=== PATIENT | female | born 1930 | race Caucasian/White ===

== ENCOUNTER 2016-12-04 12:53 | Emergency (ER) | payer MEDICARE, OTHER ==
[2016-12-04] MEDS ORDERED: NS 0.9% 1000 ML* 1,000 ML IV ONE (15:38)
[2016-12-04 16:16] LABS: Hematocrit 40 % (35-47); Hemoglobin 13.4 g/dl (12.0-16.0); Mean Corpuscular HGB Conc 34 g/dl (31-36); Mean Corpuscular Hemoglobin 30 pg (27-31); Mean Corpuscular Volume 89 fL (80-97); Mean Platelet Volume 9 um3 (7.4-10.4); Red Blood Count 4.51 10^6/ul (4.0-5.4); Red Cell Distribution Width 14 % (10.5-15); White Blood Count 7.9 10^3/ul (3.5-10.8)
--- NOTE | 2016-12-04 16:18 | RAD ---
INDICATION: Pacemaker. Aortic valve replacement. COMPARISON: None. The 2008 examination cannot be retrieved. TECHNIQUE: An AP portable view obtained at 1555 hours is submitted. FINDINGS: Bones/Soft Tissues: There are no acute bony findings. There is sternotomy with valvular replacement and presumed CABG. There is a left-sided cardiac pacemaker. Cardiomediastinal: The cardiomediastinal silhouette is normal in size. Lungs: There are no infiltrates. Pleura: There are no pleural effusions. Other: None IMPRESSION: POSTOPERATIVE CHANGE. NO ACTIVE DISEASE.
[2016-12-04 16:26] LABS: Albumin 3.6 g/dL (3.2-5.2); BUN/Creatinine Ratio 9.4 (8-20); C Reactive Protein 49.07 mg/L (< 5.00); Calcium 8.8 mg/dL (8.6-10.3); EGFR African American 113.4 (>60); EGFR Non-African American 88.2 (>60); Globulin 3.6 g/dL (2-4); Magnesium 1.9 mg/dL (1.9-2.7); Potassium 3.6 mmol/L (3.5-5.0); Total Bilirubin 0.6 mg/dL (0.2-1.0); Total Protein 7.2 g/dL (6.4-8.9); Troponin I 0.01 ng/mL (<0.04)
[2016-12-04 16:34] VITALS: BP 124/78
[2016-12-04] MEDS ORDERED: Iohexol 300* (CONTRAST) 10 ML SDV IV ONE (16:35)
--- NOTE | 2016-12-04 17:33 | RAD ---
INDICATION: Diarrhea. Blood per rectum. Diverticulosis. COMPARISON: CT November 24, 2012 TECHNIQUE: Axial source images were obtained from the hemidiaphragms to the symphysis pubis following administration of oral and intravenous contrast. 67 mL Omnipaque 300 was utilized. Coronal and sagittal reconstructed images were acquired. Lung bases: The lung bases are clear. There is sternotomy. There is pacemaker artifact. Liver: The liver is normal in size. There are no masses. There is no ductal dilatation. Gallbladder: There is sludge within the gallbladder. There are no calcified gallstones. There is no evidence of wall thickening or pericholecystic fluid. Spleen: The spleen is normal in size. There are no masses. Pancreas: There is no focal pancreatic mass or ductal dilatation. Adrenal glands: There is no evidence of adrenal mass. Kidneys: The kidneys are normal in size and position. There are prompt nephrograms and there is prompt excretion bilaterally. There is a 2.7 cm lower pole left renal cyst. There is no evidence of nephrolithiasis. Adenopathy: There is no evidence of adenopathy by size criteria. Fluid collections: There are no free or localized fluid collections. Vessels:There are atherosclerotic changes involving the aorta and iliac vessels. There is mild fusiform ectasia of the infrarenal abdominal aorta with a maximum transverse dimension of 1.7 x 2.0 cm. The IVC appears normal. GI tract: There are no acute CT bowel findings. There is no obstruction. The stomach and small bowel appear normal. The lower GI tract is remarkable for sensitive sigmoid diverticula. There is mucosal thickening of the rectum and sigmoid colon. Some these findings are chronic but superimposed mild acute diverticulitis is suspected.. Pelvic organs: The uterus and adnexa appear normal Bladder: There are no bladder masses. Abdominal and pelvic soft tissues: The extraperitoneal abdominal and pelvic soft tissues appear normal.. Osseous structures: There are no acute osseous findings. There is advanced spondylitic change of the lumbar spine with grade 1 anterolisthesis of L5 on S1 Other: None IMPRESSION: 1. Small amount gallbladder sludge. 2. Extensive distal colonic diverticula with CT findings suggestive of mild acute diverticulitis superimposed upon chronic change.
[2016-12-04 18:56] LABS: Urine Bacteria Absent (Absent); Urine Bilirubin Negative (Negative); Urine Glucose Negative (Negative); Urine Nitrite Negative (Negative)
[2016-12-04] MEDS ORDERED: ALPRAZolam TAB* 0.25 MG PO ONE (19:52)
--- NOTE | 2016-12-04 20:45 | ED ---
Delgado Hedrick SooYoung, scribed for Nichol Rodriguez MD on 12/04/16 at 1524 . GI/ HPI - HPI Summary HPI Summary: An 86 y/o F presents to ED with ongoing, multiple episodes of diarrhea onset approx 11 days ago. (note triage note states 1 month, however pt presents her notes which show this history.) Pt started Amoxicillin on 11/20 for a sinus infection, but after three days developed ongoing diarrhea. Associated sx: mild blood spotting in stool; abd pain onset approx 0300 which has alleviated and now feels "sore." Pt given metronidazole, started on 11/30/16 and stopped on because it was not alleviating the diarrhea. Spoke with Dr Knox, PCP, and Dr. Goldman, GI, offices, today and both recommended that she go to ED for evaluation. PMHx: diverticulitis, hemorrhoids. Last colonoscopy was 5 years ago. Pt last ate yesterday at 1500. - History of Current Complaint Chief Complaint: EDAbdPain Time Seen by Provider: 12/04/16 14:45 Stated Complaint: DIARREAH, ABD PAIN, SPOTTING Hx Obtained From: Patient, Family/Ball Assembler - niece Onset/Duration: Started Weeks Ago - approx 11 days ago, Atraumatic, Still Present Timing: Constant Severity: Moderate Current Severity: Moderate Location of Pain: LLQ, Suprapubic Pain Characteristics: Cramping, Other: - "sore" Associated Signs and Symptoms: Positive: Bright Red Blood w/Stool, Diarrhea, Abdominal Pain - described as abd "soreness" Additional Signs & Symptoms: Positive: Recent Antibiotics Aggravating Factor(s): Nothing Alleviating Factor(s): Nothing - Symptom Characteristics Diarrhea Number of Times per Day: 10 - diarrhea with food Diarrhea Characteristics: Other - mucous, beige - Allergy/Home Medications Allergies/Adverse Reactions: Allergies Allergy/AdvReac Type Severity Reaction Status Date / Time Amoxicillin Allergy Mild n/v Verified 12/04/16 13:02 Azithromycin [From Zithromax] Allergy Mild n/v Verified 12/04/16 13:02 Ciprofloxacin [From Cipro] Allergy Mild n/v Verified 12/04/16 13:02 Codeine Allergy Mild n/v Verified 12/04/16 13:02 Levofloxacin [From Levaquin] Allergy Mild n/v Verified 12/04/16 13:02 Sulfamethoxazole Allergy Mild n/v Verified 12/04/16 13:02 w/Trimethoprim [From Bactrim] Cephalexin Allergy Hives Verified 12/04/16 13:02 Clavulanic Acid Allergy Hives Verified 12/04/16 13:02 [From Augmentin] enviromental Allergy Mild itchy eyes Uncoded 12/04/16 13:02 PMH/Surg Hx/FS Hx/Imm Hx Previously Healthy: No Endocrine/Hematology History: Reports: Hx Thyroid Disease Denies: Hx Diabetes Cardiovascular History: Reports: Hx Hypertension Denies: Hx Myocardial Infarction Respiratory History: Reports: Hx Asthma Denies: Hx Chronic Obstructive Pulmonary Disease (COPD) GI History: Reports: Hx Diverticulosis, Hx Gastroesophageal Reflux Disease, Other GI Disorders - previous hx diverticulitis Musculoskeletal History: Reports: Hx Rheumatoid Arthritis Denies: Hx Osteoporosis, Hx Scoliosis Neurological History: Denies: Hx Headaches, Other Neuro Impairments/Disorders - Surgical History Surgery Procedure, Year, and Place: cardiac surgery done 03/2013, valve replacement Infectious Disease History: Denies: Hx Clostridium Difficile, Hx Hepatitis, Hx Human Immunodeficiency Virus (HIV), Hx of Known/Suspected MRSA, Hx Shingles, Hx Tuberculosis, Hx Known/ Suspected VRE, Hx Known/Suspected VRSA, History Other Infectious Disease, Traveled Outside the [place] in Last 30 Days - Family History Known Family History: Positive: Cardiac Disease, Other - COLON CA; ALZ; DEMENTIA - Social History Occupation: Retired Lives: Alone Alcohol Use: None Hx Substance Use: No Substance Use Type: Reports: None Hx Tobacco Use: No Smoking Status (MU): Never Smoked Tobacco Review of Systems Negative: Fever Positive: Abdominal Pain - pain has reduced, mostly feeling sore now in ED, Diarrhea, Other - pos: mild blood spots in stool Genitourinary: Negative Skin: Negative Neurological: Negative Psychological: Normal All Other Systems Reviewed And Are Negative: Yes Physical Exam - Summary Physical Exam Summary: RECTAL EXAM: External hemorrhoid present, not thrombosed. No masses. Nontender exam. Small amount of beige stool and one spot of bright red blood. Triage Information Reviewed: Yes Vital Signs On Initial Exam: Initial Vitals Temp Pulse Resp BP Pulse Ox 98.4 F 61 16 131/61 98 12/04/16 13:02 12/04/16 13:02 12/04/16 13:02 12/04/16 13:02 12/04/16 13:02 Vital Signs Reviewed: Yes Appearance: Positive: No Pain Distress, Well-Nourished, Ill-Appearing - mild Skin: Positive: Warm, Skin Color Reflects Adequate Perfusion Head/Face: Positive: Normal Head/Face Inspection Eyes: Positive: Conjunctiva Clear ENT: Positive: Normal ENT inspection Neck: Positive: Supple Respiratory/Lung Sounds: Positive: Clear to Auscultation, Breath Sounds Present , Other - no respiratory distress Cardiovascular: Positive: RRR, Other - pulses normal, brisk capillary refill. Negative: Murmur Abdomen Description: Positive: Nontender, Soft Musculoskeletal: Positive: Strength/ROM Intact. Negative: Edema Left, Edema Right Neurological: Positive: Sensory/Motor Intact, Alert, Oriented to Person Place, Time, Facial Symmetry, Speech Normal Psychiatric: Positive: Normal Diagnostics - Vital Signs Vital Signs Temp Pulse Resp BP Pulse Ox 12/04/16 13:02 98.4 F 61 16 131/61 98 - Laboratory Lab Results: Lab Results 12/04/16 12/04/16 12/04/16 Range/Units 15:45 15:45 15:45 WBC 7.9 (3.5-10.8) 10^3/ul RBC 4.51 (4.0-5.4) 10^6/ul Hgb 13.4 (12.0-16.0) g/dl Hct 40 (35-47) % MCV 89 (80-97) fL MCH 30 (27-31) pg MCHC 34 (31-36) g/dl RDW 14 (10.5-15) % Plt Count 211 (150-450) 10^3/ul MPV 9 (7.4-10.4) um3 Neut % (Auto) 71.0 (38-83) % Lymph % (Auto) 18.9 L (25-47) % [place] % (Auto) 8.5 (1-9) % Eos % (Auto) 1.0 (0-6) % Baso % (Auto) 0.6 (0-2) % Absolute Neuts (auto) 5.6 (1.5-7.7) 10^3/ul Absolute Lymphs (auto) 1.5 (1.0-4.8) 10^3/ul Absolute Monos (auto) 0.7 (0-0.8) 10^3/ul Absolute Eos (auto) 0.1 (0-0.6) 10^3/ul Absolute Basos (auto) 0 (0-0.2) 10^3/ul Absolute Nucleated RBC 0 10^3/ul Nucleated RBC % 0 INR (Anticoag Therapy) 1.20 H (0.89-1.11) APTT 30.4 (26.0-36.3) seconds Sodium 137 (133-145) mmol/L Potassium 3.6 (3.5-5.0) mmol/L Chloride 101 (101-111) mmol/L Carbon Dioxide 29 (22-32) mmol/L Anion Gap 7 (2-11) mmol/L BUN 6 (6-24) mg/dL Creatinine 0.64 (0.51-0.95) mg/dL Est GFR ( Amer) 113.4 (>60) Est GFR (Non-Af Amer) 88.2 (>60) BUN/Creatinine Ratio 9.4 (8-20) Glucose 98 (70-100) mg/dL Lactic Acid (0.5-2.0) mmol/L Calcium 8.8 (8.6-10.3) mg/dL Magnesium 1.9 (1.9-2.7) mg/dL Total Bilirubin 0.60 (0.2-1.0) mg/dL AST 19 (13-39) U/L ALT 15 (7-52) U/L Alkaline Phosphatase 67 (34-104) U/L Total Creatine Kinase 64 (10-223) U/L Troponin I 0.01 (<0.04) ng/mL C-Reactive Protein 49.07 H (< 5.00) mg/L Total Protein 7.2 (6.4-8.9) g/dL Albumin 3.6 (3.2-5.2) g/dL Globulin 3.6 (2-4) g/dL Albumin/Globulin Ratio 1.0 (1-3) Amylase 24 L (29-103) U/L Lipase 17 (11.0-82.0) U/L Urine Color Urine Appearance Urine pH (5-9) Ur Specific [place] (1.010-1.030) Urine Protein (Negative) Urine Ketones (Negative) Urine Blood (Negative) Urine Nitrate (Negative) Urine Bilirubin (Negative) Urine Urobilinogen (Negative) Ur Leukocyte Esterase (Negative) Urine WBC (Auto) (Absent) Urine RBC (Auto) (Absent) Ur Squamous Epith Cells (Absent) Urine Bacteria (Absent) Urine Glucose (Negative) Blood Type Antibody Screen 12/04/16 12/04/16 12/04/16 Range/Units 15:45 15:45 18:30 WBC (3.5-10.8) 10^3/ul RBC (4.0-5.4) 10^6/ul Hgb (12.0-16.0) g/dl Hct (35-47) % MCV (80-97) fL MCH (27-31) pg MCHC (31-36) g/dl RDW (10.5-15) % Plt Count (150-450) 10^3/ul MPV (7.4-10.4) um3 Neut % (Auto) (38-83) % Lymph % (Auto) (25-47) % [place] % (Auto) (1-9) % Eos % (Auto) (0-6) % Baso % (Auto) (0-2) % Absolute Neuts (auto) (1.5-7.7) 10^3/ul Absolute Lymphs (auto) (1.0-4.8) 10^3/ul Absolute Monos (auto) (0-0.8) 10^3/ul Absolute Eos (auto) (0-0.6) 10^3/ul Absolute Basos (auto) (0-0.2) 10^3/ul Absolute Nucleated RBC 10^3/ul Nucleated RBC % INR (Anticoag Therapy) (0.89-1.11) APTT (26.0-36.3) seconds Sodium (133-145) mmol/L Potassium (3.5-5.0) mmol/L Chloride (101-111) mmol/L Carbon Dioxide (22-32) mmol/L Anion Gap (2-11) mmol/L BUN (6-24) mg/dL Creatinine (0.51-0.95) mg/dL Est GFR ( Amer) (>60) Est GFR (Non-Af Amer) (>60) BUN/Creatinine Ratio (8-20) Glucose (70-100) mg/dL Lactic Acid 0.9 (0.5-2.0) mmol/L Calcium (8.6-10.3) mg/dL Magnesium (1.9-2.7) mg/dL Total Bilirubin (0.2-1.0) mg/dL AST (13-39) U/L ALT (7-52) U/L Alkaline Phosphatase (34-104) U/L Total Creatine Kinase (10-223) U/L Troponin I (<0.04) ng/mL C-Reactive Protein (< 5.00) mg/L Total Protein (6.4-8.9) g/dL Albumin (3.2-5.2) g/dL Globulin (2-4) g/dL Albumin/Globulin Ratio (1-3) Amylase (29-103) U/L Lipase (11.0-82.0) U/L Urine Color Straw Urine Appearance Clear Urine pH 7.0 (5-9) Ur Specific [place] 1.013 (1.010-1.030) Urine Protein Negative (Negative) Urine Ketones Negative (Negative) Urine Blood 1+ H (Negative) Urine Nitrate Negative (Negative) Urine Bilirubin Negative (Negative) Urine Urobilinogen Negative (Negative) Ur Leukocyte Esterase 1+ H (Negative) Urine WBC (Auto) Trace(0-5/hpf) (Absent) Urine RBC (Auto) Trace(0-2/hpf) (Absent) Ur Squamous Epith Cells Present H (Absent) Urine Bacteria Absent (Absent) Urine Glucose Negative (Negative) Blood Type O Positive Antibody Screen Negative Result Diagrams: 12/04/16 15:45 12/04/16 15:45 Lab Statement: Any lab studies that have been ordered have been reviewed, and results considered in the medical decision making process. - Radiology CXR Xray Interpretation: No Acute Changes - IMPRESSION: Postoperative change. No active dz. Radiology Interpretation Completed By: Radiologist - CT ABD/PEL CT Interpretation: Positive (See Comments) CT Interpretation Completed By: Radiologist - IMPRESSION: 1. Small amount gallbladder sludge. 2. Extensive distal colonic diverticula with CT findings suggestive of mild acute diverticulitis superimposed upon chronic change. - EKG 1624 Cardiac Rate: NL - 74 bpm, 100% paced Re-Evaluation - Re-Evaluation 1 Re-Evaluation Time: 18:51 Change: Unchanged Comment: Discussing results with pt and niece. Will continue to wait for stool sample. Pt is without abd pain, wants to go home. Second Eval Re-Evaluation Time: 19:15 - able to produce stool. Change: Improved GIGU Course/Dx - Course Course Of Treatment: Allergied notes. Medications reviewed. Elevated BP but has current hypertension diagnosis. Pt is an 86 y/o F presenting with ongoing, multiple episodes of diarrhea onset approx 11 days ago. Pt started Amoxicillin on 11/20 for a sinus infection, but after three days developed ongoing diarrhea. Associated sx: mild blood spotting in stool; abd pain onset approx 0300 which has alleviated and now feels "sore." Pt given metronidazole, started on 11/30/16 and stopped on 12/03/16 because it was not alleviating the diarrhea. Spoke with Dr Knox, PCP, and Dr. Goldman, GI, offices, today and both recommended that she go to ED for evaluation. PMHx: diverticulitis, hemorrhoids. Last colonoscopy was 5 years ago. Pt last ate yesterday at 1500. Pt given fluids in ED. Given alprazolam 0.25mg po x 1 just prior to DC, her usual evening med. Pt's multiple allergies noted. Lactic acid is 0.9. CRP is 49.07. Trop is 0.01. UA results show 1+ blood, 1+ leukocyte esterase, squamous epithelia present. CXR shows postoperative changes, no active dz. ABP/PEL CT shows "IMPRESSION: 1. Small amount gallbladder sludge. 2. Extensive distal colonic diverticula with CT findings suggestive of mild acute diverticulitis superimposed upon chronic change." EKG is 100% paced at 74 bpm. - Diagnoses Differential Diagnoses - Female: Colitis, Diverticulitis, Diarrhea, Gastroenteritis (Viral), Gastroenteritis (Bacterial), Urinary Tract Infection Provider Diagnoses: C. difficile colitis, Hemorrhoids without complication, Diverticulitis Discharge - Discharge Plan Condition: Stable Disposition: HOME Prescriptions: Hydrocortisone Acetate W/ Pram [Analpram-Hc 2.5-1 %] 1 cre MA BID #1 tube Vancomycin CAP* 125 mg PO QID #40 cap Patient Education Materials: Diverticulitis (ED), Hemorrhoids (ED), Clostridium Difficile Infection (ED), Diverticulitis Diet (ED) Referrals: Diana Knox MD [Primary Care Provider] - As Soon As Possible Chino Casey MD [Medical Doctor] - As Soon As Possible Additional Instructions: You have a urine culture and stool studies pending. We will contact you if you need further treatment based on those results. You may stop the metronidazole at this point. Return to the ER if you have any new or worsening symptoms. The documentation as recorded by the Delgado lea SooYoung accurately reflects the service I personally performed and the decisions made by me, Nichol Rodriguez MD.
--- NOTE | 2016-12-08 09:17 | PN ---
Progress Note - Progress Note Date of Service: 12/04/16 Note: c diff and stool occult blood positive results. already notified at visit. started on vanco. no further change needed at this time.
== END 2016-12-04 20:49 | disposition home or self-care (01) ==
LOC: ED 12:53
DX: A04.7 Enterocolitis due to Clostridium difficile (principal); K64.9 Unspecified hemorrhoids; K57.92 Diverticulitis of intestine, part unspecified, without perforation or abscess without bleeding; R10.9 Unspecified abdominal pain
CPT/HCPCS: 36415; 71010; 74177; 80053; 81003; 81015; 82150; 82272; 82550; 83605; 83630; 83690; 83735; 84484; 85025; 85610; 85730; 86140; 86850; 86900; 86901; 87040; 87045; 87046; 87077; 87086; 87493; 87899; 93005; 99283; A9270-GY; Q9967

== ENCOUNTER 2017-05-27 10:12 | Day surgery (SDC) | payer MEDICARE, OTHER ==
[~2017-05-27 10:12] MED LIST: Buffered Lidocaine 0.9% SYRIN* 5 ML/SYR SYRINGE INTRADERM ONE
[2017-05-27] MEDS ORDERED: Bupivacaine 0.25% SDV* 30 ML ONE ×2 (14:55→15:04)
[2017-05-27] MEDS ORDERED: Midazolam* 1 MG/ML 2 ML VIAL (2 MG) ONE (15:24)
[2017-05-27] MEDS ORDERED: fentaNYL* 50 MCG/ML 2 ML VIAL (100 MCG VIAL) ONE (15:24)
[2017-05-27] MEDS ORDERED: Naloxone* 0.4 MG/ML 1 ML VIAL IV PRN (15:36)
[2017-05-27 15:59] VITALS: BP 159/63
--- NOTE | 2017-05-28 05:16 | OP ---
DATE OF OPERATION: 05/27/17 - [facility] DATE OF : 32 SURGEON: Dillon Willis MD SIGN LETTERER: TRACY Soto ANESTHESIOLOGIST: Dr. Jolly. ANESTHESIA: Local MAC. PRE-OP DIAGNOSIS: Right carpal tunnel syndrome. POST-OP DIAGNOSIS: Right carpal tunnel syndrome. OPERATIVE PROCEDURE: Right open carpal tunnel release. INDICATIONS: Dottie is 87. She has had progressive disease. It is really bothering her at night time. We talked about risks and benefits. She had wanted to proceed. ESTIMATED BLOOD LOSS: 1 mL. COMPLICATIONS: None. FINDINGS: As expected. DESCRIPTION OF PROCEDURE: Dottie was seen in the preoperative holding area. The correct side, site, and procedure were identified. We came back to the operating room where the arm was then prepped and draped in the usual fashion and time-out was performed. I began by exsanguinating the arm with the Esmarch and the tourniquet was inflated to 250 mmHg. A 2 to 3 cm was made in the standard location for an open carpal tunnel release. Dissection was carried down through the subcutaneous tissue and the palmar fascia. The transverse carpal ligament was released just off the radial aspect of the hook of the hamate. When the release was completed distally and then proximally, the fascia and subcutaneous tissue was released and retracted volarly and ulnarly with the Rolf retractor. The tenotomy scissors were then used to release the remainder of the transverse carpal ligament in the distal antebrachial fascia to a level of several centimeters proximal to the wrist flexion crease. The release was completed distally and proximally. There was no compression on the nerves. So, we irrigated out the wound. Skin was closed with 4-0 nylon. Wound was dressed with Xeroform, 4x4s, sterile Webril and an Serjio bandage. She was woken up and taken to the recovery room. I had infiltrated the operative area with 0.25% plain Marcaine prior to beginning the surgery. [id number]/[facility] #: [id number] MTDD
== END 2017-05-27 16:15 | disposition home or self-care (01) ==
LOC: OREAST 10:12
PROVIDERS: ATTEND Orthopaedic Surgery Hand Surgery
DX: G56.01 Carpal tunnel syndrome, right upper limb (principal); Z95.1 Presence of aortocoronary bypass graft; Z95.2 Presence of prosthetic heart valve; Z95.0 Presence of cardiac pacemaker; J45.909 Unspecified asthma, uncomplicated; I10 Essential (primary) hypertension; E03.9 Hypothyroidism, unspecified; M19.90 Unspecified osteoarthritis, unspecified site; K21.9 Gastro-esophageal reflux disease without esophagitis
CPT/HCPCS: J2250; J3010

== ENCOUNTER 2017-06-02 15:15 | Emergency (ER) | payer MEDICARE, OTHER ==
--- OUTSIDE RECORDS SUMMARY | 2017-06-02 15:36 | XMS REPORT ---
:1930 External Reference #:[id number] Author Organization [facility] Address [address] [place] [address] Phone [phone] Care Team Providers Name Role Phone Maria Ines Lopez M.D. 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 Primary Care Physician Unavailable Payers Type Date Identification Numbers Payment Provider Subscriber Medicare Primary Policy Number: [id number] Medicare [place] PayID: [id number] [address] [place] [address] Medigap Part B Policy Number: [id number] [facility] Number: [id number] [address] PayID: [id number] [place] [address] Problems Date Description Provider Status Onset: 01/12/2017 Coronary atherosclerosis Maria Ines Lopez M.D. Active Onset: 01/12/2017 Clostridium difficile colitis Maria Ines oLpez M.D. Active Onset: 01/12/2017 Osteoporosis Maria Ines Lopez M.D. Active Onset: 01/12/2017 Mitral valve stenosis Maria Ines Lopez M.D. Active Onset: 01/12/2017 Cardiac pacemaker in situ Maria Ines Lopez M.D. Active Onset: 01/12/2017 Anxiety Maria Ines Lopez M.D. Active Onset: 01/12/2017 Hyperlipidemia Maria Ines Lopez M.D. Active Onset: 01/12/2017 Hypothyroidism Maria Ines Lopez M.D. Active Onset: 01/13/2017 Glaucoma Maria Ines Lopez M.D. Active Onset: 01/13/2017 Gastroesophageal reflux disease Maria Ines Lopez M.D. Active Onset: 01/13/2017 Diverticulitis of colon Maria Ines Lopez M.D. Active Onset: 01/13/2017 Asthma Maria Ines Lopez M.D. Active Onset: 01/13/2017 Uncomplicated moderate persistent asthma Maria Ines Lopez M.D. Active Onset: 01/13/2017 Vitamin D deficiency Maria Ines Lopez M.D. Active Onset: 01/13/2017 Impaired fasting glycaemia Maria Ines Lopez M.D. Active Family History Date Family Member(s) Problem(s) Comments Father Diabetes Mellitus, II Mother Congestive Heart Failure (CHF) Mother [place] Social History Type Date Description Comments Marital Status Legal Status: Lives With Alone Cigarette Use Never Smoked Cigarettes ETOH Use Denies alcohol use Smoking Patient has never smoked Allergies, Adverse Reactions, Alerts Date Description Reaction Status Severity Comments 01/13/2017 Augmentin active 01/13/2017 Penicillin active 01/13/2017 Levaquin active 01/13/2017 Sulfa active 01/13/2017 Zithromax active 01/13/2017 Latanoprost active 01/13/2017 Cephalosporins active 01/13/2017 Macrolides and Ketolides active 01/13/2017 NKDA inactive Medications Medication Date Status Form Strength Qnty SIG Indications Ordering Provider Betamethasone / Active Cream 0.05% apply Unknown Dipropionate 0000 sparingly two times a day to three times a day to affected area as needed Xyzal Allergy / Active Tablets 5mg 1 by mouth Unknown 24HR 0000 every day Pantoprazole / Active Tablets DR 40mg 1 by mouth Unknown Sodium 0000 every day Metoprolol / Active Tablets 25mg take 1/2 Unknown Tartrate 0000 tablet by mouth twice a day Ipratropium / Active Solution 0.03% 2 sprays Unknown Bloomer 0000 per nostril at bedtime to start, can use up to three times a day as needed Levoxyl / Active Tablets 25mcg 90tab 1 by mouth Maria Ines 0000 s daily; be maya Lopez M.D. take at the same time in the same way every day Aspir-81 00/00/ Active Tablets DR 81mg 1 by mouth Unknown 0000 every day Atorvastatin 00/00/ Active Tablets 40mg 90tab 1 by mouth Maria Ines Calcium 0000 s every day Js Lopez Nasonex / Active Suspension 50mcg/Act 51gm 2 sprays Pily 0000 in each [place], nostril [employer] daily Cetirizine HCL 00/ Active Tablets 10mg 1 by mouth Unknown 0000 every day Alprazolam / Active Tablets 0.25mg 60tab 1 every Pily 0000 s qd-bid , as [employer] needed anxiety Travatan Z / Active Solution 0.004% 1 drop Unknown 0000 both eyes every night at bedtime Timolol Maleate / Active Solution 0.5% instill Unknown 0000 one drop in each eye two times daily Flovent HFA / Active Aerosol 44mcg/Act 2 puff Unknown 0000 twice a day Ventolin HFA / Active Aerosol 108(90Bas 2 puffs Unknown 0000 e) every 4 mcg/Act hours as needed Immunizations CPT Code Status Date Vaccine Lot # [id number] Given 01/28/2017 High-Dose, Influenza Virus Vacccine-fluzone 65 and [id number] older Vital Signs Date Vital Result Comment 05/26/2017 BP Systolic 130 mmHg BP Diastolic 76 mmHg Heart Rate 76 /min Body Temperature 97.9 F Respiratory Rate 16 /min Height 49.5 inches 4'1.50" Weight 108.00 lb BMI (Body Mass Index) 31.0 kg/m2 04/14/2017 BP Systolic 120 mmHg BP Diastolic 70 mmHg Heart Rate 64 /min Body Temperature 98.0 F Respiratory Rate 18 /min Height 49.5 inches 4'1.50" Weight 111.00 lb BMI (Body Mass Index) 31.8 kg/m2 01/19/2017 BP Systolic 118 mmHg BP Diastolic 60 mmHg Heart Rate 72 /min Body Temperature 97.7 F Height 49.5 inches 4'1.50" Weight 106.50 lb BMI (Body Mass Index) 30.6 kg/m2 01/13/2017 BP Systolic 120 mmHg BP Diastolic 70 mmHg Heart Rate 68 /min Body Temperature 98.0 F Respiratory Rate 18 /min Height 49.5 inches 4'1.50" Weight 107.00 lb BMI (Body Mass Index) 30.7 kg/m2 Results Test Date Test Result H/L Range Note Laboratory test finding 01/28/2017 TSH 4.37 mIU/L 0.50-6.00 Free T4 0.87 ng/dL 0.75-1.54 Comprehensive Metabolic Prof 01/28/2017 Sodium 135 mEq/L 134-149 Potassium 4.3 mEq/L 3.6-5.5 Chloride 96 mEq/L 94-112 Carbon Dioxide 26 mEq/L 21-32 Glucose 104 mg/dL 70-105 BUN 13 mg/dL 6-26 Creatinine 0.7 mg/dL 0.6-1.4 BUN/Creat Ratio 18.6 CALC 8.0-36.0 Calcium 9.9 mg/dL 8.6-10.2 Total Protein 7.4 g/dL 6.4-8.3 Albumin 4.2 g/dL 3.8-5.5 Globulin 3.2 g/dL 2.0-4.8 A/G Ratio 1.3 CALC 0.6-2.3 Alk. Phosphatase 67 U/L 30-110 Alt (SGPT) 15 U/L 7-35 Ast (Sgot) 19 U/L 5-34 Total Bilirubin 0.6 mg/dL 0.2-1.3 GFR Non- >60 ml/min/1.73m^ >=60 GFR >60 ml/min/1.73m^ >=60 Lipid Profile 01/28/2017 Cholesterol 147 mg/dL 120-200 Triglycerides 333 mg/dL High 30-200 HDL Cholesterol 35 mg/dL 30-85 LDL (Calculated) 45 CALC 0-129 VLDL Cholesterol 67 mg/dL High 0-50 HDL Risk Factor 4.2 CALC 0.0-4.4 Complete Blood Count 01/28/2017 WBC 6.3 x10^3/UL 3.6-9.6 RBC 4.84 x10^6/UL 3.90-5.70 HGB 14.1 g/dL 12.1-17.2 HCT 42 % 36-50 MCV 86.0 fL 82.2-97.4 MCH 29.0 pg 27.6-33.3 MCHC 33.9 g/dL 33.0-35.5 RDW 14.8 % High 11.6-13.7 PLT 248 x10^3/UL 150-400 MPV 7.9 fL 7.4-10.4 Gran # 3.7 x10^3/UL 1.5-7.2 Lymph# 2.3 x10^3/UL 0.7-4.9 Bates# 0.3 x10^3/UL 0.1-0.9 Gran % 57.2 % 42.2-75.2 Lymph % 37.0 % 20.5-51.1 Bates% 5.8 % 1.7-9.3 Laboratory test finding 01/28/2017 Vitamin D25 27 Low 30-100 Magnesium, Serum 2.3 mEq/L High 1.2-2.1 Vitamin B-12 627 pg/mL 230-1050 LDL, Direct 61 mg/dL 0-130 Laboratory test finding 01/28/2017 Hemoglobin A1c (Fma) 5.7 % 4.1-5.7 Procedures Date CPT Code Description Status 05/03/2012 Mammogram Completed 05/03/2011 Colonoscopy Completed Encounters Type Date Location Provider CPT E/M Dx Office Visit 04/14/2017 9:00a [facility] Office Maria Ines Lopez M.D. 20385 G56.11 Office Visit 01/19/2017 9:10a [facility] Office Maria Ines Lopez M.D. 21691 R42 I25.10 I10 F41.9 Office Visit 01/13/2017 9:40a [facility] Office Maria Ines Lopez M.D. 89558 E03.9 R73.01 E78.5 I25.10 E55.9 M25.571 J45.40 M81.0 L29.2 Plan of Care Future Appointment(s):08/18/2017 10:00 am - Maria Ines Lopez M.D. at [facility] Mvnytn6805/26/2017 - Maria Ines Lopez M.D.I25.10 Athscl heart disease of [place] coronary artery w/o ang pctrsComments:continue present medication,will call if there is any increase in the frequency or severity of mypxsdX29.9 Anxiety disorder, unspecifiedComments:can increase to TID (3 tabs a day) for severe anxiety, try to stick to 2 tabs a day as medication causes sedation, falls and is habit formingAllComments:~B_~U_Medication Management~b_~u_ Patient Understands medications she's taking? Yes No Are there Barriers to Adherence? Yes No Has the patient been asked about herbal supplements and therapies, and OTC meds? Yes No
--- OUTSIDE RECORDS SUMMARY | 2017-06-02 15:37 | XMS REPORT ---
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 Maria Ines Lopez MD Primary Care Physician Unavailable Payers Type Date Identification Numbers Payment Provider Subscriber Medicare Primary Effective: Policy Number: Medicare Dottie Del Valle 1995 [id number] PayID: [id number] [address] [place] [address] Medigap Part B Policy Number: [id number] [employer] Dottie Del Valle Group Number: [id number] [address] PayID: [id number] [place] [address] Problems Date Description Provider Status Onset: 01/24/2013 Heart murmur Sky Queen M.D., DEISY, Active MILADIS Onset: 01/24/2013 Hyperlipidemia Sky Queen M.D., DEISY, Active FSCADAMARIS Onset: 01/30/2013 Aortic valve disorder Jorge Luis Fischer M.D., Active CRESENCIO OLIVAS Onset: 02/21/2013 Chronic ischemic heart disease Sky Queen M.D., DEISY, Active MILADIS Onset: 11/17/2013 H/O: pacemaker in situ Jorge Luis Fischer M.D., Active CRESENCIO OLIVAS Onset: 04/16/2017 Acquired trigger finger Dillon Willis MD Active Onset: 04/16/2017 Bilateral carpal tunnel syndrome Dillon Willis MD Active Onset: 06/19/2016 Heart valve replacement Jorge Luis Fischer M.D., Active CRESENCIO OLIVAS Onset: 06/03/2015 Paroxysmal ventricular Jorge Luis Fischer M.D., Active tachycardia FAC, CRESENCIO Family History Date Family Member(s) Problem(s) Comments General Hypertension father and mother General [place] Brother 1 age 89 General Cancer Social History Type Date Description Comments Marital Status Lives With Alone Occupation Retired Work Status Not Currently 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 She states she does exercise on a regular basis being busy, but does not do formal walking. ETOH Use Denies alcohol use Smoking Patient has never smoked Recreational Drug Use Never Used Drugs Daily Caffeine Consumes on average 2 cups of decaff coffee per day Daily Caffeine consumes chocolate occasionally Daily Caffeine decaf tea 1 cup daily Exercise Type/Frequency Does housework daily Allergies, Adverse Reactions, Alerts Date Description Reaction Status Severity Comments 01/20/2013 Sulfamethoxazole upset stomach active per patient 08/12/2012 Zithromax upset stomach active per patient 08/12/2012 Levaquin upset stomach active per patient 08/12/2012 Codeine upset stomach active per patient 08/12/2012 Amoxicillin upset stomach active per patient 08/12/2012 Augmentin upset stomach active per patient 08/12/2012 Cipro upset stomach active per patient 01/20/2013 Cephalexin active 01/24/2013 Trimethoprim active 02/21/2013 Clavulanic Acid active 11/17/2013 Latanoprost eye swelling , itch active per patient 11/17/2013 Shellfish-derived Products active per patient Medications Medication Date Status Form Strength Qnty SIG Indications Ordering Provider Lasix 12/16/ Active Tablets 20mg 7tabs Take one Georges S. 2017 tablet a Vera, needed DO FACC for swelling of the feet Ventolin HFA 05/13/ Active Aerosol 108(90Base 3mon prn Tito, 2016 ) mcg/Act MD Vasyl Metoprolol 04/13/ Active Tablets 25mg 90tab 1/2 tab Jorge Luis Tartrate 2012 s by mouth Bjorn twice a chandra Fischer M.D., CRESENCIO OLIVAS Desloratadine / Active Tablets 5mg 1 tab po Unknown Odt 0000 Dispers q evening as needed Atorvastatin 00/ Active Tablets 40mg 90tab 1 po qd Unknown Calcium 0000 s Ipratropium / Active Solution 0.03% 30ml instill 1 Unknown [place] 0000 sprays in each nostril twice a day Aspirin Low / Active Tablets 81mg 30tab 1 po qd Unknown Dose 0000 s Levoxyl / Active Tablets 25mcg 90tab take one Unknown 0000 s tab in the am Multivitamins / Active Capsules 30cap 1 capsule Unknown 0000 s daily Colace / Active Capsules 100mg 60cap 1 po bid Unknown 0000 s prn Calcium 600 + / Active Tablets 600-200mg- 60tab 1 po qd Unknown D3 0000 Unit s Am Alprazolam / Active Tablets 0.25mg 20tab one by Unknown 0000 s mouth up to three times daily as needed for anxiety Travatan Z / Active Solution 0.004% 1 gtt Unknown 0000 both eyes every night at bedtime Pantoprazole / Active Tablets DR 40mg 1 tablet Abilio, Sodium 0000 po twice Ahmad M., daily prn Preservision / Active Capsules Areds 2 take one Unknown Areds 2 0000 cap in the moring and one cap in the evening Timolol Maleate / Active Solution 0.5% One drop Unknown 0000 each eye every morning Flovent HFA / Active Aerosol 44mcg/Act inhale 2 Unknown 0000 puffs twice a day Mometasone / Active Suspension 50mcg/Act spray 2 Unknown Furoate 0000 sprays into each nostril daily Metoprolol 02/21/ Hx Tablets ER 25mg 30tab 1/2 po qd Sky Succinate ER 2012 - 24HR s Bret, 04/12/ M.D., 2013 [facility] Sertraline HCL 03/15/ Hx Tablets 25mg 30tab 1 po qd Marita Pate 2011 - s Perla, 04/12/ MMaryD. 2012 Pantoprazole / Hx Tablets DR 20mg 30tab 1 po q am Unknown Sodium 0000 - s as needed 2014 Meloxicam / Hx Tablets 15mg 30tab 1 po qd Unknown 0000 - s prn 2012 Calcium / Hx Tablets 1000 1 po qd Unknown 0000 - 2012 Qvar / Hx Aerosol 80mcg/Act 1unit 2 puff Cifuentes, 0000 - s inhaled Jose Antonio 06/18/ twice MD stephen 2016 daily until gone then will switch to Flovent Ventolin HFA / Hx Aerosol 108(90Base 3mon 1 puff Unknown 0000 - ) mcg/Act bid prn 2014 Fiber Complete / Hx Tablets 60tab prn Unknown 0000 - s 2012 Vitamin C / Hx 500mg 1 tab po Unknown 0000 - qd for 30 2013 Ferrous / Hx Tablets 324(38Fe) 60tab po bid Unknown Gluconate 0000 - mg s for 30 2013 Folic Acid / Hx Tablets 1mg 30tab 1 po qd Unknown 0000 - s for 30 2013 Furosemide / Hx Tablets 20mg 30tab 1 po qam Unknown 0000 - s for 30 2013 Metoprolol Hx Tablets 25mg 60tab / Unknown Tartrate 0000 - s tablet 04/13/ (12.5 mg) 2012 po bid Medications Administered in Office Medication Date Status Form Strength Qnty SIG Indications Ordering Provider Celestone 3 mg Administered Injection Dillon and 3mg 017 MD Lazaro Inj, Administered Injection Jorge Luis Milan Regadenoson, 016 Amado, 0.1 MG Js, FACC, FASNC Technetium TC Administered Injection Jorge Luis Milan 99M 016 Linda Fischer M.D., FACPhoebe, Per Unit Dose FASNC Up To 40 Millicuries Vital Signs Date Vital Result Comment 05/14/2017 Height 59 inches 4'11" Weight 111.00 lb BP Systolic 118 mmHg BP Diastolic 72 mmHg Respiratory Rate 18 /min Body Temperature 97.9 F Pain Level 0 BMI (Body Mass Index) 22.4 kg/m2 04/16/2017 Height 59 inches 4'11" Weight 111.00 lb Heart Rate 62 /min BP Systolic Sitting 110 mmHg BP Diastolic Sitting 77 mmHg Pain Level 2 BMI (Body Mass Index) 22.4 kg/m2 06/19/2016 Height 59 inches 4'11" Weight 107.12 lb Heart Rate 88 /min BP Systolic Sitting 122 mmHg right, regular BP Diastolic Sitting 78 mmHg right, regular BP Systolic Standing 122 mmHg right, regular BP Diastolic Standing 72 mmHg right, regular Respiratory Rate 18 /min O2 % BldC Oximetry 97 % BMI (Body Mass Index) 21.6 kg/m2 06/03/2015 Height 59 inches 4'11" Weight 117.00 lb with shoes Heart Rate 76 /min BP Systolic Sitting 152 mmHg Ra reg cuff BP Diastolic Sitting 78 mmHg Ra reg cuff BP Systolic Standing 150 mmHg Ra reg cuff BP Diastolic Standing 78 mmHg Ra reg cuff Respiratory Rate 14 /min BMI (Body Mass Index) 23.6 kg/m2 Ejection Fraction 60-65% 05/06/15 11/19/2014 Height 59 inches 4'11" Weight 113.00 lb with shoes Heart Rate 70 /min BP Systolic Sitting 130 mmHg Ra reg cuff BP Diastolic Sitting 68 mmHg Ra reg cuff BP Systolic Standing 122 mmHg Ra reg cuff BP Diastolic Standing 70 mmHg Ra reg cuff Respiratory Rate 16 /min BMI (Body Mass Index) 22.8 kg/m2 11/17/2013 Height 59 inches 4'11" Weight 113.00 lb without shoes Heart Rate 64 /min BP Systolic Sitting 158 mmHg Ra reg cuff BP Diastolic Sitting 78 mmHg Ra reg cuff BP Systolic Standing 162 mmHg Ra reg cuff BP Diastolic Standing 80 mmHg Ra reg cuff Respiratory Rate 12 /min BMI (Body Mass Index) 22.8 kg/m2 06/26/2013 Heart Rate 6068 /min BP Systolic Sitting 124 mmHg L arm, Regular cuff BP Diastolic Sitting 80 mmHg L arm, Regular cuff BP Systolic Standing 128 mmHg BP Diastolic Standing 80 mmHg Respiratory Rate 18 /min 05/11/2013 Height 58 inches 4'10" Weight 112.00 lb Heart Rate 88 /min BP Systolic Sitting 136 mmHg LA reg cuff BP Diastolic Sitting 78 mmHg LA reg cuff BP Systolic Standing 140 mmHg LA BP Diastolic Standing 80 mmHg LA Respiratory Rate 18 /min BMI (Body Mass Index) 23.4 kg/m2 04/13/2013 Height 58 inches 4'10" Weight 108.00 lb without shoes Heart Rate 9490 /min sit and stand HR reg BP Systolic Sitting 124 mmHg R arm reg cuff BP Diastolic Sitting 70 mmHg R arm reg cuff BP Systolic Standing 114 mmHg R arm reg cuff BP Diastolic Standing 70 mmHg R arm reg cuff Respiratory Rate 17 /min BMI (Body Mass Index) 22.6 kg/m2 02/21/2013 Height 59 inches 4'11" Weight 110.00 lb Heart Rate 6672 /min BP Systolic Sitting 144 mmHg right arm, reg cuff BP Diastolic Sitting 76 mmHg right arm, reg cuff BP Systolic Standing 138 mmHg right arm, reg cuff BP Diastolic Standing 72 mmHg right arm, reg cuff Respiratory Rate 20 /min BMI (Body Mass Index) 22.2 kg/m2 01/30/2013 Height 59 inches 4'11" Weight 112.38 lb Heart Rate 72 /min BP Systolic Sitting 138 mmHg Ra reg cuff BP Diastolic Sitting 74 mmHg Ra reg cuff BP Systolic Standing 144 mmHg Ra BP Diastolic Standing 80 mmHg Ra Respiratory Rate 16 /min BMI (Body Mass Index) 22.7 kg/m2 01/24/2013 Height 58 inches 4'10" Weight 113.00 lb without shoes Heart Rate 68 /min BP Systolic 130 mmHg R arm reg cuff BP Diastolic 70 mmHg R arm reg cuff BP Systolic Sitting 128 mmHg L arm reg cuff BP Diastolic Sitting 76 mmHg L arm reg cuff BP Systolic Standing 124 mmHg Larm reg cuff BP Diastolic Standing 72 mmHg Larm reg cuff Respiratory Rate 17 /min BMI (Body Mass Index) 23.6 kg/m2 08/12/2012 Heart Rate 64 /min BP Systolic Sitting 120 mmHg BP Diastolic Sitting 68 mmHg Respiratory Rate 14 /min Results Test Date Test Result H/L Range Note Order 06/19/2016 EKG <pending> CBC Auto Diff 06/06/2013 White Blood Count 5.6 10^3/uL 4.8-10.8 Red Blood Count 4.91 10^6/uL 4.0-5.4 Hemoglobin 13.8 g/dL 12.0-16.0 Hematocrit 42 % 35-47 Mean Corpuscular Volume 86 fL 80-97 Mean Corpuscular Hemoglobin 28 pg 27-31 Mean Corpuscular HGB Conc 33 g/dL 31-36 Red Cell Distribution Width 14 % 10.5-15 Platelet Count 173 10^3/uL 150-450 Mean Platelet Volume 10 um3 7.4-10.4 Abs Neutrophils 3.2 10^3/uL 1.5-7.7 Abs Lymphocytes 1.7 10^3/uL 1.0-4.8 Abs Monocytes 0.5 10^3/uL 0-0.8 Abs Eosinophils 0.1 10^3/uL 0-0.6 Abs Basophils 0 10^3/uL 0-0.2 Abs Nucleated RBC 0.01 10^3/uL Granulocyte % 57.8 % 38-83 Lymphocyte % 31.3 % 25-47 Monocyte % 8.7 % 1-9 Eosinophil % 1.6 % 0-6 Basophil % 0.6 % 0-2 Nucleated Red Blood Cells % 0.2 Laboratory test finding 06/06/2013 Erythrocyte Sed Rate 20 mm/Hr 0-40 Basic Metabolic Panel 06/06/2013 Sodium 136 mmol/L 133-145 Potassium 4.0 mmol/L 3.5-5.0 Chloride 100 mmol/L Low 101-111 Co2 Carbon Dioxide 29.0 mmol/L 22-32 Anion Gap 7.0 mmol/L 2-11 Glucose 81 mg/dL 70-100 Blood Urea Nitrogen 12 mg/dL 6-24 Creatinine 0.70 mg/dL 0.50-1.40 BUN/Creatinine Ratio 17.1 8-20 Calcium 9.1 mg/dL 8.1-9.9 Egfr Non- 80.1 >60 Egfr 103.0 >60 1 Lipid Profile (Trig/Chol/HDL) 06/06/2013 Triglycerides 364 mg/dL High 40- 200 Cholesterol 190 mg/dL Less than 200 HDL Cholesterol 40 mg/dL 40-60 2 Cholesterol/HDL Ratio 4.8 Average High 1-4.44 LDL Cholesterol 77.2 Less Than 100 3 Liver Function Panel 06/06/2013 Total Protein 6.7 g/dL 6.2-8.1 Albumin 4.0 g/dL 3.2-5.2 Globulin 2.7 g/dL 2-4 Albumin/Globulin Ratio 1.5 1-3 Total Bilirubin 0.7 mg/dL 0.4-1.5 Direct Bilirubin 0.1 mg/dL 0.1-0.5 Indirect Bilirubin 0.6 mg/dL 0.3-1.0 Alkaline Phosphatase 60 U/L 30-110 Alt 30 U/L 14-54 Ast 28 U/L 12-42 Laboratory test finding 06/06/2013 Hemoglobin A1c 6.1 % High Less than 6.0 4 Free T4 0.67 ng/mL 0.61-1.24 TSH (Thyroid Stimulating Horm) 1.81 miu/mL 0.34-5.60 CRP High Sensitivity 1.2 mg/L 5 Basic Metabolic Panel 02/20/2013 Sodium 131 mmol/L Low 133-145 Potassium 4.0 mmol/L 3.5-5.0 Chloride 95 mmol/L Low 101-111 Co2 Carbon Dioxide 30.0 mmol/L 22-32 Anion Gap 6.0 mmol/L 2-11 Glucose 138 mg/dL High 70-100 Blood Urea Nitrogen 11 mg/dL 6-24 Creatinine 0.70 mg/dL 0.50-1.40 BUN/Creatinine Ratio 15.7 8-20 Calcium 9.3 mg/dL 8.1-9.9 Egfr Non- 80.3 >60 Egfr 103.3 >60 6 Laboratory test 02/14/2013 Activated Partial 30.0 seconds 22.18-37.18 finding Thrombo Time Inr/Protime 02/14/2013 Inr 0.94 0.87-0.97 Basic Metabolic Panel 02/14/2013 Sodium 124 mmol/L Low 133-145 Potassium 4.1 mmol/L 3.5-5.0 Chloride 90 mmol/L Low 101-111 Co2 Carbon Dioxide 27.0 mmol/L 22-32 Anion Gap 7.0 mmol/L 2-11 Glucose 141 mg/dL High 70-100 Blood Urea Nitrogen 8 mg/dL 6-24 Creatinine 1.00 mg/dL 0.50-1.40 BUN/Creatinine Ratio 8.0 8-20 Calcium 9.1 mg/dL 8.1-9.9 Egfr Non- 53.2 >60 Egfr 68.4 >60 7 CBC No Diff 02/14/2013 White Blood Count 6.2 10^3/uL 4.8-10.8 Red Blood Count 4.58 10^6/uL 4.0-5.4 Hemoglobin 13.7 g/dL 12.0-16.0 Hematocrit 40 % 35-47 Mean Corpuscular Volume 87 fL 80-97 Mean Corpuscular Hemoglobin 30 pg 27-31 Mean Corpuscular HGB Conc 34 g/dL 31-36 Red Cell Distribution Width 14 % 10.5-15 Platelet Count 200 10^3/uL 150-450 Mean Platelet Volume 9 um3 7.4-10.4 1 Because ethnic data is not always readily available, this report includes an eGFR for both -Americans and non- Americans. The National Kidney Disease Education Program (NKDEP) does not endorse the use of the MDRD equation for patients that are not between the ages of 18 and 70, are , have extremes of body size, muscle mass, or nutritional status, or are non- or non-. According to the National Kidney Foundation, irrespective of diagnosis, the stage of the disease is based on the level of kidney function: Stage Description GFR(mL/min/1.73 m(2)) 1 Kidney damage with normal or decreased GFR 90 2 Kidney damage with mild decrease in GFR 60-89 3 Moderate decrease in GFR 30-59 4 Severe decrease in GFR 15-29 5 Kidney failure <15 (or dialysis) 2 HDL Interpretation: Undesirable: High Risk: Less than 40 mg/dL Desirable: Low Risk: Greater than 60 mg/dL 3 LDL Interpretation: Low Risk Optimal Level: LDL Less than 100 mg/dL Near or Above Optimal: LDL 100-129 mg/dL Borderline High Risk: LDL 130-159 mg/dL High Risk: LDL 160-189 mg/dL Very High Risk: LDL Greater than 189 mg/dL 4 Therapeutic target for the treatment of diabetes Mellitus patients is <7% HBA1C, and in selective patients <6.0%.Please refer to [place] Diabetes Association Diabetic care guidelines for further information. 5 Less Than 1.0......Low Risk of Cardiovascular Disease 1.0-3.0............Medium Risk (<2 Fold Increase) Greater Than 3.0...High Risk (Approximately 2-Fold Increase) 6 Because ethnic data is not always readily available, this report includes an eGFR for both -Americans and non- Americans. The National Kidney Disease Education Program (NKDEP) does not endorse the use of the MDRD equation for patients that are not between the ages of 18 and 70, are , have extremes of body size, muscle mass, or nutritional status, or are non- or non-. According to the National Kidney Foundation, irrespective of diagnosis, the stage of the disease is based on the level of kidney function: Stage Description GFR(mL/min/1.73 m(2)) 1 Kidney damage with normal or decreased GFR 90 2 Kidney damage with mild decrease in GFR 60-89 3 Moderate decrease in GFR 30-59 4 Severe decrease in GFR 15-29 5 Kidney failure <15 (or dialysis) 7 Because ethnic data is not always readily available, this report includes an eGFR for both -Americans and non- Americans. The National Kidney Disease Education Program (NKDEP) does not endorse the use of the MDRD equation for patients that are not between the ages of 18 and 70, are , have extremes of body size, muscle mass, or nutritional status, or are non- or non-. According to the National Kidney Foundation, irrespective of diagnosis, the stage of the disease is based on the level of kidney function: Stage Description GFR(mL/min/1.73 m(2)) 1 Kidney damage with normal or decreased GFR 90 2 Kidney damage with mild decrease in GFR 60-89 3 Moderate decrease in GFR 30-59 4 Severe decrease in GFR 15-29 5 Kidney failure <15 (or dialysis) Procedures Date CPT Code Description Status 05/04/2017 92302 ECHO Transthoracic, Real-Time 2D With Doppler And Color Completed Flow 04/20/2017 77745 Pace Maker Eval W/Iterative Adjment Dual Lead Completed 04/20/2017 81129 Pace Maker Eval W/Iterative Adjment Dual Lead Completed 04/16/2017 21656 Inject Tendon Sheath Or Ligament Aponeurosis Eg Plantar Completed Fascia 10/01/2016 32691 Pace Maker Eval W/Iterative Adjment Dual Lead Completed 06/19/2016 17261 EKG Tracing & Interpretation Completed 04/14/2016 23499 Pace Maker Eval W/Iterative Adjment Dual Lead Completed 10/09/2015 21325 Pace Maker Eval W/Iterative Adjment Dual Lead Completed 05/13/2015 26711 Stress Test Completed 05/13/2015 09944 Myocardial Perfusion Imaging Tomographic (Spect) Completed Multiple Studies 05/06/2015 65464 ECHO Transthoracic, Real-Time 2D With Doppler And Color Completed Flow 04/23/2015 26217 Pace Maker Eval W/Iterative Adjment Dual Lead Completed 11/19/2014 21556 EKG Tracing & Interpretation Completed 10/29/2014 26476 ECHO Transthoracic, Real-Time 2D With Doppler And Color Completed Flow 10/22/2014 64870 Pace Maker Eval W/Iterative Adjment Dual Lead Completed 05/02/2014 90544 Pace Maker Eval W/Iterative Adjment Dual Lead Completed 10/24/2013 08574 Pace Maker Eval W/Iterative Adjment Dual Lead Completed 10/23/2013 79429 ECHO Transthoracic, Real-Time 2D With Doppler And Color Completed Flow 05/11/2013 46560 Pace Maker Eval W/Iterative Adjment Dual Lead Completed 04/13/2013 98491 Pace Maker Eval W/Iterative Adjment Dual Lead Completed 04/13/2013 36888 EKG Tracing & Interpretation Completed 02/17/2013 73905 Cath PLMT&NJX L Ventriculog Img S&I Completed 01/25/2013 00381 ECHO Transthoracic, Real-Time 2D With Doppler And Color Completed Flow 01/24/2013 52766 EKG Tracing & Interpretation Completed Encounters Type Date Location Provider CPT E/M Dx Office Visit 06/19/2016 [facility], [address]2654 Z95.2 10:00a Shani Membreno [place], [facility] I25.810 Office Visit 06/03/2015 9:45a [place] [facility] Fischer, 51230 I47.2 Shani Weinstein, [facility] Office Visit 11/19/2014 10:45a [place] [facility] Fischer, 17437 424.1 Shani Weinstein, [facility] Office Visit 11/17/2013 10:30a [facility] Jorge Luis Fischer, 67870 424.1 Shani Weinstein, [facility] V45.01 Office Visit 06/26/2013 10:15a [place] [facility] [place] [address] 424.1 Office Visit 05/11/2013 3:00p [place] [facility] [place] [address] 424.1 Office Visit 04/13/2013 9:00a [place] Jorge Luis Fischer, 08616 424.1 Js, [facility], FASNC 414.9 Office Visit 02/21/2013 2:45p [facility] Sky Queen M.D., 13761 424.1 [facility], FSCAI 414.9 Office Visit 01/30/2013 12:45p [facility] Jorge Luis Fischer, 39421 424.1 Shani Rendon., [facility], CRESENCIO Office Visit 01/24/2013 11:00a [facility] Sky Queen M.D., 15506 785.2 [facility], [facility] 272.4 Office Visit 08/12/2012 10:45a [facility] Ankur Velásquez, 97826 333.1 [facility] Plan of Care Future Appointment(s):05/27/2017 10:00 am - TRACY [facility]05/17/2017 10:15 am - Jorge Luis Fischer M.D., [facility], [place] at [place] [facility]05/18/2017 1:30 pm - Jorge Luis Fischer M.D., [facility] at [place] [facility]05/27/2017 10:00 am - Dillon Willis MD at [facility]06/09/2017 8:45 am - iDllon Willis MD at [facility]
[2017-06-02] MEDS ORDERED: NS 0.9% 1000 ML* 1,000 ML IV ONE (17:08)
[2017-06-02 17:39] LABS: ABS Basophils 0 10^3/ul (0-0.2); ABS Eosinophils 0.1 10^3/ul (0-0.6); ABS Lymphocytes 2.3 10^3/ul (1.0-4.8); ABS Monocytes 0.6 10^3/ul (0-0.8); ABS Nucleated RBC 0 10^3/ul; Eosinophil % 1.3 % (0-6); Hematocrit 40 % (35-47); Hemoglobin 13.5 g/dl (12.0-16.0); Lymphocyte % 28.5 % (25-47); Mean Corpuscular HGB Conc 34 g/dl (31-36); Mean Corpuscular Hemoglobin 29 pg (27-31); Mean Corpuscular Volume 87 fL (80-97); Mean Platelet Volume 8 um3 (7.4-10.4); Nucleated Red Blood Cells % 0; Platelet Count 172 10^3/ul (150-450); Red Blood Count 4.63 10^6/ul (4.0-5.4); Red Cell Distribution Width 15 % (10.5-15)
[2017-06-02 17:58] LABS: EGFR Non-African American 91.3 (>60)
--- NOTE | 2017-06-02 19:56 | ED ---
Renate Hedrick Thomas, scribed for Tone Anderson MD on 06/02/17 at 1954 . Progress - Progress Note Progress Note: The patient is an 87 year old female presenting to the emergency department complaining of diarrhea. The patient is a sign-out from Dr. Machado. I spoke with the daughter because the patient was changing. The daughter reported that the patient was feeling better and had formed stool. The patient will be discharged home with a stool kit that can be brought as an outpatient to a lab. The documentation as recorded by the Renate lea Thomas accurately reflects the service I personally performed and the decisions made by me, Tone Anderson MD.
[2017-06-02 20:10] VITALS: BP 150/58
--- NOTE | 2017-06-04 11:50 | ED ---
Brian Hedrick Angela, scribed for Weston Machado MD on 06/02/17 at 1723 . GI/ HPI - HPI Summary HPI Summary: This pt is a 87 y/o female presenting to [facility] c/o diarrhea x3 days. Pt reports her diarrhea was watery initially and currently it is more solid, described as "pudding like." Pt states she feels dehydrated. She denies any abd pain. Pt denies taking any antibiotics in the past 6 months. Family member reports the last time she was given fluids, but states this caused her left foot to swell up. PMHx: recent carpal tunnel surgery. Family members pt might have had sick contact while she was at [facility]. - History of Current Complaint Chief Complaint: EDGeneral Time Seen by Provider: 06/02/17 17:05 Stated Complaint: DIARRHEA Hx Obtained From: Patient Onset/Duration: Started Days Ago, Still Present Timing: Lasting Days Severity: Severe Current Severity: Moderate Pain Intensity: 0 - out of 10. No current abd pain. Location of Pain: None Associated Signs and Symptoms: Positive: Diarrhea. Negative: Abdominal Pain Aggravating Factor(s): Nothing Alleviating Factor(s): Nothing - Allergy/Home Medications Allergies/Adverse Reactions: Allergies Allergy/AdvReac Type Severity Reaction Status Date / Time MS Amoxicillin [Amoxicillin] Allergy Mild n/v Verified 05/27/17 10:32 MS Azithromycin Allergy Mild n/v Verified 05/27/17 10:32 [From Zithromax] MS Ciprofloxacin [From Cipro] Allergy Mild n/v Verified 05/27/17 10:32 MS Codeine [Codeine] Allergy Mild n/v Verified 05/27/17 10:32 MS Levofloxacin Allergy Mild n/v Verified 05/27/17 10:32 [From Levaquin] MS Sulfamethoxazole Allergy Mild n/v Verified 05/27/17 10:32 w/Trimethoprim [From Bactrim] MS Cephalexin [Cephalexin] Allergy Hives Verified 05/27/17 10:32 MS Clavulanic Acid Allergy Hives Verified 05/27/17 10:32 [From Augmentin] MS Latanoprost [Latanoprost] Allergy Unknown Verified 05/27/17 10:32 Reaction Details MS Macrolides and Ketolides Allergy Unknown Verified 05/27/17 10:32 [Macrolides and Ketolides] Reaction Details MS Penicillins [Penicillins] Allergy Unknown Verified 05/27/17 10:32 Reaction Details MS Shellfish-derived Products Allergy Hives Verified 05/27/17 10:32 [Shellfish-derived Products] enviromental Allergy Mild itchy eyes Uncoded 05/27/17 10:32 PMH/Surg Hx/FS Hx/Imm Hx Endocrine/Hematology History: Reports: Hx Thyroid Disease Denies: Hx Diabetes Cardiovascular History: Reports: Hx Hypertension - ON MEDICATION, Hx Pacemaker/ ICD - FORM SENT TO , Hx Valvular Heart Disease - VALVE REPLACED Denies: Hx Myocardial Infarction Respiratory History: Reports: Hx Asthma - USES INHALER Denies: Hx Chronic Obstructive Pulmonary Disease (COPD) GI History: Reports: Hx Diverticulosis, Hx Gastroesophageal Reflux Disease, Other GI Disorders - DIVERTICULITIS Denies: Hx Ulcer History: Reports: Hx Kidney Infection - 2017 Musculoskeletal History: Reports: Hx Arthritis - GENERALIZED, Hx Rheumatoid Arthritis, Hx Tendonitis - RIGHT ARM Denies: Hx Osteoporosis, Hx Scoliosis Sensory History: Reports: Hx Cataracts - HAS CATARACTS, NO SURGERY, Hx Contacts or Glasses - GLASSES Denies: Hx Hearing Aid Opthamlomology History: Reports: Hx Cataracts - HAS CATARACTS, NO SURGERY, Hx Contacts or Glasses - GLASSES Neurological History: Denies: Hx Headaches, Other Neuro Impairments/Disorders Psychiatric History: Reports: Hx Anxiety - MEDICATION - Surgical History Surgery Procedure, Year, and Place: cardiac surgery done 03/2013, valve replacement. PACEMAKER 2013 [place] Hx Anesthesia Reactions: Yes - SENSITIVE TO DRUGS Infectious Disease History: No Infectious Disease History: Reports: Hx Clostridium Difficile Denies: Hx Hepatitis, Hx Human Immunodeficiency Virus (HIV), Hx of Known/ Suspected MRSA, Hx Shingles, Hx Tuberculosis, Hx Known/Suspected VRE, Hx Known/ Suspected VRSA, History Other Infectious Disease, Traveled Outside the [place] in Last 30 Days - Family History Known Family History: Positive: Cardiac Disease, Other - COLON CA; ALZ; DEMENTIA - Social History Alcohol Use: None Hx Substance Use: No Substance Use Type: Reports: None Hx Tobacco Use: No Smoking Status (MU): Never Smoked Tobacco Review of Systems Constitutional: Other - dehydrated Negative: Fever, Chills Positive: Diarrhea. Negative: Abdominal Pain Musculoskeletal: Negative Skin: Negative Neurological: Negative All Other Systems Reviewed And Are Negative: Yes Physical Exam - Summary Physical Exam Summary: VITAL SIGNS: Reviewed. GENERAL: Patient is a well-developed and nourished female who is lying comfortable in the stretcher. Patient is not in any acute respiratory distress. Pt is a little bit dehydrated. HEAD AND FACE: No signs of trauma. No ecchymosis, hematomas or skull depressions. No sinus tenderness. EYES: PERRLA, EOMI x 2, No injected conjunctiva, no nystagmus. EARS: Hearing grossly intact. Ear canals and tympanic membranes are within normal limits. MOUTH: Oropharynx within normal limits. NECK: Supple, trachea is midline, no adenopathy, no JVD, no carotid bruit, no c- spine tenderness, neck with full ROM. CHEST: Symmetric, no tenderness at palpation LUNGS: Clear to auscultation bilaterally. No wheezing or crackles. CVS: Regular rate and rhythm, S1 and S2 present, no murmurs or gallops appreciated. ABDOMEN: Soft, non-tender. No signs of distention. No rebound no guarding, and no masses palpated. Bowel sounds are normal. EXTREMITIES: FROM in all major joints, no edema, no cyanosis or clubbing. NEURO: Alert and oriented x 3. No acute neurological deficits. Speech is normal and follows commands. SKIN: Dry and warm. Pt has increased turgor of the skin. Triage Information Reviewed: Yes Vital Signs On Initial Exam: Initial Vitals Temp Pulse Resp BP Pulse Ox 96.7 F 77 18 151/75 97 06/02/17 15:23 06/02/17 15:23 06/02/17 15:23 06/02/17 15:23 06/02/17 15:23 Vital Signs Reviewed: Yes Diagnostics - Vital Signs Vital Signs Temp Pulse Resp BP Pulse Ox 06/02/17 15:23 96.7 F 77 18 151/75 97 - Laboratory Lab Results: Lab Results 06/02/17 06/02/17 Range/Units 17:25 17:25 WBC 8.0 (3.5-10.8) 10^3/ul RBC 4.63 (4.0-5.4) 10^6/ul Hgb 13.5 (12.0-16.0) g/dl Hct 40 (35-47) % MCV 87 (80-97) fL MCH 29 (27-31) pg MCHC 34 (31-36) g/dl RDW 15 (10.5-15) % Plt Count 172 (150-450) 10^3/ul MPV 8 (7.4-10.4) um3 Neut % (Auto) 62.2 (38-83) % Lymph % (Auto) 28.5 (25-47) % [place] % (Auto) 7.6 (1-9) % Eos % (Auto) 1.3 (0-6) % Baso % (Auto) 0.4 (0-2) % Absolute Neuts (auto) 5.0 (1.5-7.7) 10^3/ul Absolute Lymphs (auto) 2.3 (1.0-4.8) 10^3/ul Absolute Monos (auto) 0.6 (0-0.8) 10^3/ul Absolute Eos (auto) 0.1 (0-0.6) 10^3/ul Absolute Basos (auto) 0 (0-0.2) 10^3/ul Absolute Nucleated RBC 0 10^3/ul Nucleated RBC % 0 Sodium 134 (133-145) mmol/L Potassium 4.0 (3.5-5.0) mmol/L Chloride 97 L (101-111) mmol/L Carbon Dioxide 30 (22-32) mmol/L Anion Gap 7 (2-11) mmol/L BUN 9 (6-24) mg/dL Creatinine 0.62 (0.51-0.95) mg/dL Est GFR ( Amer) 117.4 (>60) Est GFR (Non-Af Amer) 91.3 (>60) BUN/Creatinine Ratio 14.5 (8-20) Glucose 102 H (70-100) mg/dL Calcium 9.5 (8.6-10.3) mg/dL Total Bilirubin 0.70 (0.2-1.0) mg/dL AST 19 (13-39) U/L ALT 20 (7-52) U/L Alkaline Phosphatase 57 (34-104) U/L C-Reactive Protein 1.02 (< 5.00) mg/L Total Protein 7.7 (6.4-8.9) g/dL Albumin 4.0 (3.2-5.2) g/dL Globulin 3.7 (2-4) g/dL Albumin/Globulin Ratio 1.1 (1-3) Result Diagrams: 06/02/17 17:25 06/02/17 17:25 Lab Statement: Any lab studies that have been ordered have been reviewed, and results considered in the medical decision making process. GIGU Course/Dx - Course Assessment/Plan: This pt is a 87 y/o female presenting to [facility] c/o diarrhea x3 days. Pt reports her diarrhea was watery initially and currently it is more solid, described as "pudding like." She denies any abd pain. Pt denies taking any antibiotics in the past 6 months. Family member reports the last time she was given fluids, but states this caused her left foot to swell up. PMHx: recent carpal tunnel surgery. Family members pt might have had sick contact while she was at [facility]. Test results without any significant abnormalities. In the ED course the pt was given IV fluids. The pt is eating and drinking without any nausea or vomiting. The daughter wants the pt be tested for C. diff, because last summer pt had these symptoms and was positive for C. diff. However, since the pt has not given any stool sample, I will sign out the pt to Dr. Anderson at shift change, pending stool sample. - Diagnoses Differential Diagnoses - Female: Colitis, Gastritis, Gastroenteritis (Viral), Gastroenteritis (Bacterial), Gerd Provider Diagnoses: Nausea & vomiting, Diarrhea Discharge - Discharge Plan Condition: Stable Disposition: HOME Discharge Disposition Comment: signed out to Dr. Anderson, pending dispo, awaiting stool sample Patient Education Materials: Acute Diarrhea (ED) Referrals: Maria Ines Lopez MD [Primary Care Provider] - Additional Instructions: FOLLOW UP WITH YOUR DOCTOR. BRING YOUR DIARRHEA SAMPLE TO THE LAB. RETURN TO THE EMERGENCY DEPARTMENT FOR ANY WORSENING OF YOUR CONDITION OR QUESTIONS OR CONCERNS. The documentation as recorded by the Brian lea Angela accurately reflects the service I personally performed and the decisions made by , Weston Machado MD.
== END 2017-06-02 20:08 | disposition home or self-care (01) ==
LOC: ED 15:15
DX: R19.7 Diarrhea, unspecified (principal)
CPT/HCPCS: 36415; 80053; 85025; 86140; 96360; 99283

== ENCOUNTER 2017-11-27 10:35 | Emergency (ER) | payer MEDICARE, OTHER ==
[2017-11-27 11:09] VITALS: BP 124/67
--- NOTE | 2017-11-27 11:22 | UC ---
Complaint Female HPI - HPI Summary HPI Summary: 87 yo female presents with urinary urgency, frequency, and bladder pressure for the last 2 days. She tells me that she gets a UTI once or twice a year and this feels the same. Her last UTI was ~1 year ago and she was placed on Macrobid with good relief. Denies fever, chills, back pain, or hematuria. - History Of Current Complaint Chief Complaint: UCGU Stated Complaint: BLADDER COMPLAINT Time Seen by Provider: 11/27/17 11:22 Hx Obtained From: Patient Onset/Duration: Sudden Onset Timing: Constant Severity Initially: Mild Severity Currently: Mild Pain Intensity: 2 Pain Scale Used: 0-10 Numeric - Allergies/Home Medications Allergies/Adverse Reactions: Allergies Allergy/AdvReac Type Severity Reaction Status Date / Time lactose Allergy Diarrhea Verified 11/27/17 11:12 amoxicillin AdvReac Nausea And Verified 11/27/17 11:11 Vomiting azithromycin [From Zithromax] AdvReac Nausea And Verified 11/27/17 11:11 Vomiting cephalexin AdvReac Nausea And Verified 11/27/17 11:11 Vomiting ciprofloxacin [From Cipro] AdvReac Nausea And Verified 11/27/17 11:11 Vomiting clavulanic acid AdvReac Nausea And Verified 11/27/17 11:11 Vomiting codeine AdvReac Nausea And Verified 11/27/17 11:11 Vomiting latanoprost AdvReac Nausea And Verified 11/27/17 11:11 Vomiting levofloxacin [From Levaquin] AdvReac Nausea And Verified 11/27/17 11:11 Vomiting shellfish derived AdvReac Nausea And Verified 11/27/17 11:11 Vomiting sulfamethoxazole AdvReac Nausea And Verified 11/27/17 11:11 Vomiting trimethoprim AdvReac Nausea And Verified 11/27/17 11:11 Vomiting enviromental Allergy Mild itchy eyes Uncoded 06/29/17 10:44 PMH/Surg Hx/FS Hx/Imm Hx Cardiovascular History: Hypertension, Pacemaker/ICD Respiratory History: COPD, Asthma GI/ History: Gastroesophageal Reflux Psychological History: Anxiety - Surgical History Surgical History: Yes Surgery Procedure, Year, and Place: cardiac surgery done 03/2013, valve replacement. PACEMAKER 2012 [place] - Family History Known Family History: Positive: Cardiac Disease, Other - COLON CA; ALZ; DEMENTIA - Social History Occupation: Retired Lives: Assisted Living Alcohol Use: None Substance Use Type: None Smoking Status (MU): Never Smoked Tobacco - Immunization History Most Recent Influenza Vaccination: 01/2017 Most Recent Tetanus Shot: up to date Most Recent Pneumonia Vaccination: received Review of Systems Constitutional: Negative Skin: Negative Respiratory: Negative Cardiovascular: Negative Genitourinary: Dysuria, Frequency, Urgency Neurological: Negative Psychological: Negative All Other Systems Reviewed And Are Negative: Yes Physical Exam - Summary Physical Exam Summary: GENERAL: NAD. WDWN. No pain distress. SKIN: No rashes, sores, lesions, or open wounds. NECK: Supple. Nontender. No lymphadenopathy. CHEST: No accessory muscle use. Breathing comfortably and in no distress. CV: Pulses intact. Brisk cap refill. ABDOMEN: Soft. NTTP. No distention or guarding. No CVA tenderness. Bowel sounds present NEURO: Alert. CN II-XII grossly intact. PSYCH: Age appropriate behavior. Triage Information Reviewed: Yes Vital Signs: Initial Vital Signs Temp 97.5 F 11/27/17 11:00 Pulse 62 11/27/17 11:00 Resp 16 11/27/17 11:00 BP 124/67 11/27/17 11:00 Pulse Ox 99 11/27/17 11:00 Laboratory Tests 11/27/17 11:36 POC Urine Color Sonal POC Urine Clarity Cloudy POC Urine pH 7.0 POC Ur Specif Clarks 1.010 POC Urine Protein Trace A POC Ur Glucose (UA) Negative POC Urine Ketones Negative POC Urine Blood 3+ A POC Urine Nitrite Negative POC Urine Bilirubin Negative POC Urine Urobilinogen 0.2 POC U Leukocyte Esteras 3+ A Vital Signs Reviewed: Yes Complaint Female Dx - Course Course Of Treatment: UA with signs of infection. Rx for macrobid and send for culture. - Differential Dx/Diagnosis Provider Diagnoses: UTI Discharge - Sign-Out/Discharge Documenting (check all that apply): Patient Departure - Discharge Plan Condition: Stable Disposition: HOME Prescriptions: Nitrofurantoin Monohyd/M-Cryst [Macrobid 100 mg Capsule] 100 mg PO BID #10 cap Patient Education Materials: Urinary Tract Infection in Women (ED) Referrals: Maria Ines Lopez MD [Primary Care Provider] - Additional Instructions: If you develop a fever, shortness of breath, chest pain, new or worsening symptoms - please call your PCP or go to the ED. - Billing Disposition and Condition Condition: STABLE Disposition: Home
--- NOTE | 2017-11-29 09:03 | UC ---
- Progress Note Progress Note: + klebsiella sensitive to Macrobid no change 11/29/17 [facility] Discharge - Sign-Out/Discharge Documenting (check all that apply): Post-Discharge Follow Up - Discharge Plan Condition: Stable Disposition: HOME Prescriptions: Nitrofurantoin Monohyd/M-Cryst [Macrobid 100 mg Capsule] 100 mg PO BID #10 cap Patient Education Materials: Urinary Tract Infection in Women (ED) Referrals: Maria Ines Lopez MD [Primary Care Provider] - Additional Instructions: If you develop a fever, shortness of breath, chest pain, new or worsening symptoms - please call your PCP or go to the ED. - Billing Disposition and Condition Condition: STABLE Disposition: Home
== END 2017-11-27 11:54 | disposition home or self-care (01) ==
LOC: UCEAST 10:35
DX: N39.0 Urinary tract infection, site not specified (principal); B96.89 Other specified bacterial agents as the cause of diseases classified elsewhere; Z88.0 Allergy status to penicillin; Z88.1 Allergy status to other antibiotic agents; Z88.8 Allergy status to other drugs, medicaments and biological substances; Z88.5 Allergy status to narcotic agent; I10 Essential (primary) hypertension; Z95.811 Presence of heart assist device
CPT/HCPCS: 81003; 87077; 87086; 87186; 99212; G0463

== ENCOUNTER 2018-05-15 14:26 | Emergency (ER) | payer MEDICARE, OTHER ==
--- OUTSIDE RECORDS SUMMARY | 2018-05-15 14:30 | XMS REPORT | Continuity of Care Document ---
:1930 External Reference #:[id number] Author Name JodiHawa guzman Care Team Providers Name Role Phone Maria Ines Lopez MD Care Team Information Steno Pool Supervisor Unavailable Maria Ines Lopez MD Primary Care Physician Unavailable Payers Type Date Identification Numbers Payment Provider Subscriber Policy Number: [id number] Medicare [place] I[place] PayID: [id number] [address] [place] [address] Policy Number: [id number] [facility] Ivon PayID: [id number] [address] [place] [address] Advance Directives Description No Information Available Problems Date Description Provider Status Onset: 06/07/2015 Allergic rhinitis due to pollen Maria Teresa S. Fenstermacher, Active RPA-C Onset: 06/07/2015 Allergic rhinitis Maria Teresa S. Fenstermacher, Active RPA-C Onset: 06/07/2015 Mild intermittent asthma, Maria Teresa S. Fenstermacher, Active uncomplicated RPA-C Onset: 08/24/2016 Mild intermittent asthma Cornelius Flannery RPA-Phoebe Active Onset: 08/24/2016 Posterior rhinorrhea Cornelius Flannery RPA-Phoebe Active Onset: 11/06/2016 Exacerbation of intermittent Maria Teresa S. Fenstermacher, Active asthma RPA-C Onset: 11/20/2016 Acute sinusitis Maria Teresa S. Fenstermacher, Active RPA-C Onset: 11/20/2016 Uncomplicated moderate persistent Maria Teresa S. Fenstermacher, Active asthma RPA-C Family History Description No Information Available Social History Type Date Description Comments Sex Unknown Smoke-Free Home is smoke-free Tobacco Use Start: Unknown Patient has never smoked Tobacco Use Start: Unknown No Second Hand Smoke Exposure Smoking Status Reviewed: 11/20/16 No Second Hand Smoke Exposure Allergies, Adverse Reactions, Alerts Date Description Reaction Status Severity Comments 05/21/2015 Cipro Active 05/21/2015 Levaquin Active 05/21/2015 Bactrim Active 05/21/2015 Zithromax Active 06/07/2015 Cephalosporins Active 06/07/2015 Augmentin Active 06/07/2015 Macrolides and Ketolides Active 06/07/2015 Sulfa Antibiotics Active 06/07/2015 Brimonidine Active 06/07/2015 Latanoprost Active 11/06/2016 Aspirin / Codeine Active 11/06/2016 Trimethoprim Active 11/06/2016 Clavulanic Acid Active 11/06/2016 Clindamycin Active Medications Medication Date Status Form Strength Qnty SIG Indications Ordering Provider Levocetirizine 08/24 Active Tablets 5mg 90tab Take 1 J30.1 Micki Flannery s Tablet By CATHY Shields Mouth Once Daily Ipratropium 01/22 Active Solution 0.03% 90uni 2 Sprays Prudencio ts Each CATHY Shields Nostril 3 Times Daily Ventolin HFA 10/06 Active Aerosol 108(90Bas 3unit inhale 2 e) s puffs by Ed Cifuentes MD mcg/Act inhalatio n route every 4 hours as needed for 99 days Flovent HFA 06/07 Active Aerosol 44mcg/Act 31.8g Inhale 2 J45.20 m Puffs By Ed Cifuentes MD Inhalatio n Route 2 Times Per Day. Rinse Mouth After Use. Preservision Active Capsules Areds 2 Unknown Areds Pantoprazole Active Tablets DR 40mg Unknown Sodium /0000 Alprazolam ER Active Tablets ER 0.5mg Unknown /0000 24HR Metoprolol Active Tablets 25mg Unknown Tartrate /0000 Levoxyl Active Tablets 25mcg Unknown /0000 Calcium 500+D Active Tablets 500-400mg Unknown High Potency /0000 -Unit Aspir-[address] 81mg i tab Unknown /0000 everyday Atorvastatin Active Tablets 40mg Unknown Calcium /0000 Timolol Maleate Active Solution 0.5% Unknown /0000 Travatan Z Active Solution 0.004% Unknown /0000 Mometasone Active Suspension 50mcg/Act 2 Unknown Furoate /0000 intranasa l puffs every day Alprazolam Active Tablets 0.25mg Unknown / Nitrofurantoin Active Capsules 100mg take 1 Unknown Monohydrate/Macr capsule ocrystals by mouth twice a day for 5 days Fluoxetine HCL Active Capsules 10mg take 1 Unknown /0000 capsule by mouth once daily Proctozone-HC Active Cream 2.5% Unknown Tramadol Active Tablets 37.5-325m take 1-2 Unknown Hydrochloride/Ac / g tablets etaminophen by mouth every 4 to 6 hours if needed maximum daily dose of 6 Amoxicillin 11/13 Hx Tablets 875mg 28tab Take one s tablet by Ed Cifuentes MD - mouth 02/04 twice a day x14 days Medrol 11/06 Hx TBPK 4mg 21uni Take as J45.21 ts directed Ed Cifuentes MD - 11/20 Atrovent HFA 01/19 Hx Aerosol 17mcg/Act 38.7g 2 puffs m each Ed Cifuentes MD - nostril 01/22 times a day Nasonex 11/27 Hx Suspension 50mcg/Act 3unit 2 s intranasa Ed Cifuentes MD - l puffs 08/24 Qvar 06/07 Hx Aerosol 80mcg/Act 1unit 2 puff s twice a Ed Cifuentes MD - day 08/24 Ventolin HFA 06/07 Hx Aerosol 108(90Bas 1inha Inhale 2 J45.20 e) ler puffs by Ed Cifuentes MD - mcg/Act inhalatio 08/24 n every 4 hours as needed. Cetirizine HCL 06/07 Hx Tablets 10mg 30tab Take one J30.1 s tablet by Ed Cifuentes MD - mouth 08/24 every at bedtime. Flovent HFA 05/21 Hx Aerosol 44mcg/Act 1inha 2 puff ler twice a Ed Cifuentes MD - day 08/24 Qvar 09/03 Hx Aerosol 80mcg/Act Inhale 2 puff (80 - mcg/actua 05/21 tion) inhalatio n route twice a day as directed Desloratadine Hx Tablets 5mg take one tablet by - mouth 08/24 every as needed Atrovent Hx Solution 0.03% 2 puffs each - nostril 01/19 times a day Cetirizine HCL Hx Chewtabs 10mg chew one tablet by - mouth 02/04 daily at bedtime. Immunizations Description No Information Available Vital Signs Date Vital Result Comment 04/22/2018 1:45pm BP Systolic 122 mmHg BP Diastolic 70 mmHg Height 60 inches 5'0" Weight 110.00 lb BMI (Body Mass Index) 21.5 kg/m2 Heart Rate 89 /min Respiratory Rate 16 /min O2 % BldC Oximetry 99 % 02/25/2018 11:39am BP Systolic 118 mmHg BP Diastolic 62 mmHg Height 60 inches 5'0" Weight 110.50 lb BMI (Body Mass Index) 21.6 kg/m2 Heart Rate 89 /min Respiratory Rate 16 /min Body Temperature 97.8 F O2 % BldC Oximetry 96 % 02/04/2018 3:52pm BP Systolic 154 mmHg BP Diastolic 84 mmHg Height 60 inches 5'0" Weight 112.00 lb BMI (Body Mass Index) 21.9 kg/m2 Heart Rate 92 /min Respiratory Rate 18 /min Body Temperature 96.8 F O2 % BldC Oximetry 97 % 11/20/2016 9:56am BP Systolic 124 mmHg BP Diastolic 80 mmHg Height 60 inches 5'0" Weight 111.00 lb BMI (Body Mass Index) 21.7 kg/m2 Heart Rate 66 /min Respiratory Rate 14 /min Body Temperature 96.1 F O2 % BldC Oximetry 99 % 11/06/2016 1:38pm BP Systolic 120 mmHg BP Diastolic 76 mmHg Height 60 inches 5'0" Weight 111.00 lb BMI (Body Mass Index) 21.7 kg/m2 Heart Rate 84 /min Respiratory Rate 16 /min Body Temperature 97.8 F O2 % BldC Oximetry 97 % 08/24/2016 11:35am BP Systolic 161 mmHg BP Diastolic 79 mmHg Height 60 inches 5'0" Weight 112.00 lb BMI (Body Mass Index) 21.9 kg/m2 Heart Rate 78 /min Respiratory Rate 14 /min Body Temperature 98.0 F O2 % BldC Oximetry 97 % 08/24/2016 11:34am BP Systolic 161 mmHg BP Diastolic 79 mmHg Height 70 inches 5'10" 06/07/2015 10:17am BP Systolic 128 mmHg BP Diastolic 84 mmHg Heart Rate 88 /min Respiratory Rate 12 /min 11/18/2012 4:02pm BP Systolic 120 mmHg BP Diastolic 80 mmHg Heart Rate 90 /min Results Description No Information Available Procedures Date Code Description Status 11/06/2016 16551 Nitric Oxide Gas Determination Completed 11/06/2016 82120 Bronchodilation Responsiveness Spirometry Pre/Post Completed Bronchodil Adm Encounters Type Date Location Provider Dx Diagnosis Office Visit 02/25/2018 Chito Ward J45.40 Moderate persistent 11:30a MD [place] asthma, uncomplicated Office Visit 02/04/2018 Chito Fernández NP J45.40 Moderate persistent 4:00p asthma, uncomplicated J30.1 Allergic rhinitis due to pollen Office Visit 11/20/2016 9:45a Chito Kaba J01.90 Acute sinusitis, Fenstermacher, RPA-C unspecified J45.40 Moderate persistent asthma, uncomplicated J30.1 Allergic rhinitis due to pollen J30.89 Other allergic rhinitis R09.82 Postnasal drip Office Visit 11/06/2016 1:45p Chito Kaba J45.21 Mild intermittent Fenstermacher, RPA-C asthma with (acute) exacerbation J30.1 Allergic rhinitis due to pollen J30.89 Other allergic rhinitis Office Visit 08/24/2016 11:30a Cornelius Barnard, RPA-C J30.1 Allergic rhinitis due to pollen J30.89 Other allergic rhinitis J45.20 Mild intermittent asthma, uncomplicated R09.82 Postnasal drip Office Visit 06/07/2015 10:30a Chito Kaba Fenstermacher, J30.1 Allergic rhinitis RPA-C due to pollen J30.89 Other allergic rhinitis J45.20 Mild intermittent asthma, uncomplicated Plan of Treatment No Information Available
--- OUTSIDE RECORDS SUMMARY | 2018-05-15 14:30 | XMS REPORT | Continuity of Care Document ---
:1930 External Reference #:[id number] Author Name Chico Cifuentes MD Address [address] [place] [address] Care Team Providers Name Role Phone Maria Ines Lopez MD Care Team Information Enterprise Mobility Architect Unavailable Maria Ines Lopez MD Primary Care Physician Unavailable Payers Type Date Identification Numbers Payment Provider Subscriber Policy Number: [id number] Medicare [place] I[place] PayID: [id number] [address] [place] [address] Policy Number: [id number] [facility] Ivon PayID: [id number] [address] [place] [address] Advance Directives Description No Information Available Problems Date Description Provider Status Onset: 06/07/2015 Allergic rhinitis due to pollen Maria Teresa Kendrick, Active RPA-C Onset: 06/07/2015 Allergic rhinitis Maria Teresa Rodriguezacher, Active RPA-C Onset: 06/07/2015 Mild intermittent asthma, Maria Teresa Lopezr, Active uncomplicated RPA-C Onset: 08/24/2016 Mild intermittent asthma Cornelius Flannery RPA-Phoebe Active Onset: 08/24/2016 Posterior rhinorrhea Cornelius Flannery RPA-Phoebe Active Onset: 11/06/2016 Exacerbation of intermittent Maria Teresa Bhagatstermacher, Active asthma RPA-C Onset: 11/20/2016 Acute sinusitis Maria Teresa Lopezr, Active RPA-C Onset: 11/20/2016 Uncomplicated moderate persistent Maria Teresa Bhagatstermacher, Active asthma RPA-C Family History Description No [...] Form Strength Qnty SIG Indications Ordering Provider Singulair 04/22 Active Tablets 10mg 90tab 10mg by J30.1 s mouth Ed Cifuentes MD daily at bedtime Levocetirizine 08/24 Active Tablets 5mg 90tab Take [...] Preservision Active Capsules Areds 2 Unknown Areds 2 /[address] 40mg Unknown Sodium /0000 Alprazolam ER Active Tablets ER 0.5mg Unknown /0000 24HR Metoprolol Active Tablets 25mg Unknown Tartrate /0000 Levoxyl Active Tablets 25mcg Unknown /0000 Calcium 500+D Active Tablets 500-400mg Unknown High Potency /0000 -Unit Aspir-[address] 81mg i tab Unknown /0000 everyday Atorvastatin Active Tablets 40mg Unknown Calcium Timolol Maleate Active Solution 0.5% Unknown Travatan Z Active Solution 0.004% Unknown Mometasone Active Suspension 50mcg/Act 51gm 2 Christopher Furoate samira Cifuentes MD l puffs every day Alprazolam Active Tablets 0.25mg Unknown Nitrofurantoin Active Capsules 100mg take 1 Unknown Monohydrate/Macr capsule ocrystals by mouth twice a day for 5 days Fluoxetine HCL Active Capsules 10mg take 1 Unknown capsule by mouth once daily Proctozone-HC Active Cream 2.5% Unknown Tramadol Active Tablets 37.5-325m take 1-2 Unknown Hydrochloride/Ac g tablets etaminophen by mouth every 4 [...] 11/27 Hx Suspension 50mcg/Act 3unit 2 s samira Cifuentes MD - l puffs 08/24 every Qvar 06/07 Hx Aerosol 80mcg/Act 1unit 2 [...] directed Desloratadine Hx Tablets 5mg take one Unknown tablet by - mouth 08/24 every as needed Atrovent Hx Solution 0.03% 2 puffs each - nostril 01/19 times a day Cetirizine HCL Hx Chewtabs 10mg chew one Unknown / tablet by - mouth 02/04 daily at [...] 80 mmHg Heart Rate 90 /min Results Test Date Facility Test Result H/L Range Note Order 04/22/2018 [facility] Nitric Oxide <pending> PFT Supplies <pending> PFT With Bronchodilator <pending> Procedures Date Code Description Status 04/22/2018 09678 Nitric Oxide Gas Determination Completed 04/22/2018 71378 Bronchodilation Responsiveness Spirometry Pre/Post Completed Bronchodil Adm 11/06/2016 86670 Nitric Oxide Gas Determination Completed 11/06/2016 82016 Bronchodilation Responsiveness Spirometry Pre/Post Completed Bronchodil Adm Encounters Type Date Location Provider Dx Diagnosis Office Visit 04/22/2018 [place]ito Cifuentes, J30.1 Allergic rhinitis 2:00p due to pollen J30.89 Other allergic rhinitis J45.40 Moderate persistent asthma, uncomplicated Office Visit 02/25/2018 11:30a Chito Ward J45.40 Moderate persistent MD [facility] asthma, uncomplicated Office Visit 02/04/2018 4:00p Chito Fernández NP J45.40 Moderate persistent asthma, uncomplicated J30.1 Allergic rhinitis due to pollen Office Visit 11/20/2016 9:45a Chito Resendiz01.90 Acute sinusitis, Fenstermacher, RPA-C unspecified J45.40 Moderate persistent asthma, uncomplicated J30.1 Allergic rhinitis due to pollen J30.89 Other allergic rhinitis R09.82 Postnasal drip Office Visit 11/06/2016 1:45p Taylor Maria Teresa S. J45.21 Mild intermittent Fenstermacher, RPA-C asthma with (acute) exacerbation J30.1 Allergic rhinitis due to pollen J30.89 Other allergic rhinitis Office Visit 08/24/2016 11:30a Cornelius Barnard, RPA-C J30.1 Allergic rhinitis due to pollen J30.89 Other allergic rhinitis J45.20 Mild intermittent asthma, uncomplicated R09.82 Postnasal drip Office Visit 06/07/2015 10:30a Chito Bhagatstermjustyna, J30.1 Allergic rhinitis RPA-C due to pollen J30.89 Other allergic rhinitis J45.20 Mild intermittent asthma, uncomplicated Plan of Treatment 04/22/2018 - Chico Cifuentes MDJ30.1 Allergic rhinitis due to pollenNew Medication:Singulair 10 mg - 10mg by mouth daily at rvsrwvfO18.89 Other allergic oetvgidcH37.40 Moderate persistent asthma, uncomplicated
--- OUTSIDE RECORDS SUMMARY | 2018-05-15 14:31 | XMS REPORT ---
:1930 External Reference #:[id number] Author Organization [facility] Address [address] [place] [address] Phone [phone] Care Team Providers Name Role Phone Maria Ines Lopez M.D. Care Team Information Feeder Catcher Tobacco Unavailable Maria Ines Lopez M.D. Primary Care Physician Unavailable Payers Type Date Identification Numbers Payment Provider Subscriber Medicare Primary Effective: Policy Number: Medicare Alva Del Valel 1995 [id number] PayID: [id number] [address] [place] [address] [employer] [employer] Policy Number: [id number] [employer] [facility] Caron Del Valle Group Number: [id number] [address] PayID: [id number] [place] [address] Problems Date Description Provider Status Onset: 01/12/2017 Coronary atherosclerosis Maria Ines Lopez M.D. Active Onset: 01/12/2017 Clostridium difficile colitis Maria Ines Lopez M.D. Active Onset: 01/12/2017 Osteoporosis Maria Ines [...] II Mother Congestive Heart Failure (CHF) Mother [place] Siblings 12 Social History Type Date Description Comments Marital Status Legal Status: Lives With Alone Diet Healthy, Well Balanced Occupation Retired Cigarette Use Never Smoked Cigarettes ETOH Use Denies alcohol use Smoking Patient has never smoked Exercise Type/Frequency Walks daily Allergies, Adverse Reactions, Alerts Date Description Reaction Status Severity Comments 01/13/2017 Augmentin active 01/13/2017 Penicillin active 01/13/2017 Levaquin active 01/13/2017 Sulfa active 01/13/2017 Zithromax active 01/13/2017 Latanoprost active 01/13/2017 Cephalosporins active 01/13/2017 Macrolides and Ketolides active 08/18/2017 Codeine active gi upset 08/18/2017 Shellfish-derived Products active itchy 09/30/2017 Cipro active 01/25/2018 Trimethoprim active 01/25/2018 Clavulanic Acid active 01/13/2017 NKDA inactive Medications Medication Date Status Form Strength Qnty SIG Indications Ordering Provider Ranitidine HCL 11/02/ Active Tablets 150mg 90tab Take 1 Marjan CMary 2018 s Tablet By Ronald, Mouth MEDIA ASSISTANT Every Day Betamethasone / Active Cream 0.05% apply Unknown Dipropionate 0000 sparingly two times a day to three times a day to affected area as needed Xyzal Allergy / Active Tablets 5mg 1 by mouth Unknown 24HR 0000 every day Metoprolol / Active Tablets 25mg take 1/2 Unknown Tartrate 0000 tablet by mouth twice a day Ipratropium / Active Solution 0.03% 2 sprays Unknown [place] 0000 per nostril at bedtime to start, can use up to three times a day as needed Aspir-81 00/ Active Tablets DR 81mg 1 by mouth Unknown 0000 every day Nasonex / Active Suspension 50mcg/Act 51gm 2 sprays Pily 0000 in each Augustin, nostril SURGICAL PATHOLOGIST daily Travatan Z 00/00/ Active Solution 0.004% 1 drop Unknown 0000 both eyes every night at bedtime Timolol Maleate / Active Solution 0.5% instill Unknown 0000 one drop in each eye two times daily Flovent HFA / Active Aerosol 44mcg/Act 3 puff Unknown 0000 twice a day Ventolin HFA / Active Aerosol 108(90Bas 2 puffs Unknown 0000 e) every 4 mcg/Act hours as needed Multivitamin / Active Tablets 1 by mouth Unknown Adult 0000 every day Calcium 600 / Active Tablets 600mg 1po every Unknown 0000 other day Preservision / Active Capsules 1 po bid Unknown Areds 0000 Vitamin D / Active Tablets 2000Unit once Unknown 0000 daily. Atorvastatin / Active Tablets 40mg 90tab Take 1 Kait Eli Calcium 0000 s Tablet By Schwartz, Mouth MEDIA ASSISTANT Every Day Alprazolam / Active Tablets 0.25mg 90tab 1 tab q8 Maria Ines 0000 s hours as Lulu, needed mdd M.D. 3 mdd 3 Levoxyl / Active Tablets 25mcg 90tab Take 1 Maria Ines 0000 s Tablet By Lulu, Mouth M.D. Daily, Be Sure To Take AT The Same Time Every Day Tessalon Perles 01/25/ Hx Capsules 100mg 30cap take 1 J01.90 Kait Eli 2018 - s tablets Efren, 02/15/ every 8 MEDIA ASSISTANT 2018 hours as needed for cough Physical 09/30/ Hx evaluate M54.2 Alma Rosa Therapy 2018 - and treat Kennedy, 01/16/ neck and SURGICAL PATHOLOGIST 2018 mid back pain Ranitidine 150 07/14/ Hx Tablets 150mg 90tab 1 by mouth Marjan Black 2018 - s every day Ronald, Strength 11/02/ MEDIA ASSISTANT 2018 Fluoxetine HCL 06/10/ Hx Capsules 10mg 30cap 1 by mouth Maria Ines 2018 - s every day John 06/14/ M.D. 2018 Pantoprazole / Hx Tablets DR 40mg 1 by mouth Unknown Sodium 0000 - every day 2017 Cetirizine HCL / Hx Tablets 10mg 1 by mouth Unknown 0000 - every day 2017 Immunizations CPT Code Status Date Vaccine Lot # [id number] Given 02/15/2018 High-Dose, Influenza Virus Vacccine-fluzone 65 and [id number] older 37552 Given 01/28/2017 High-Dose, Influenza Virus Vacccine-fluzone 65 and [id number] older 53604 Given 01/27/2016 High-Dose, Influenza Virus Vacccine-fluzone 65 and older 38532 Given 02/11/2015 Pneumococcal Immunization 10182 Given 01/28/2015 High-Dose, Influenza Virus Vacccine-fluzone 65 and older 54921 Given 05/24/2014 Zostivax 39627 Given 02/09/2014 Influenza Vac, Quadriv[place], [place] [address] Given 02/29/2012 Tdap Tetanus, W Pertussis 92671 Given 02/06/2011 High-Dose, Influenza Virus Vacccine-fluzone 65 and older 97898 Given 07/19/2007 Tetanus And Diptheria Adult Preservative Free >7Yrs 95662 Given 05/03/2004 Pneumococcal Immunization Vital Signs Date Vital Result Comment 04/20/2018 BP Systolic 140 mmHg BP Diastolic 80 mmHg Heart Rate 88 /min Body Temperature 97.8 F Respiratory Rate 16 /min Height 59.5 inches 4'11.50" Weight 109.00 lb BMI (Body Mass Index) 21.6 kg/m2 02/26/2018 BP Systolic 118 mmHg BP Diastolic 78 mmHg Heart Rate 80 /min Body Temperature 97.3 F Respiratory Rate 16 /min Height 59.5 inches 4'11.50" Weight 110.12 lb BMI (Body Mass Index) 21.9 kg/m2 02/15/2018 BP Systolic 120 mmHg BP Diastolic 78 mmHg Heart Rate 84 /min Body Temperature 98.2 F Respiratory Rate 16 /min Height 59.5 inches 4'11.50" Weight 111.00 lb BMI (Body Mass Index) 22.0 kg/m2 01/25/2018 BP Systolic 120 mmHg BP Diastolic 88 mmHg Heart Rate 86 /min Body Temperature 97.9 F Respiratory Rate 16 /min Height 59.5 inches 4'11.50" Weight 112.00 lb BMI (Body Mass Index) 22.2 kg/m2 01/17/2018 BP Systolic 140 mmHg BP Diastolic 80 mmHg Heart Rate 84 /min Body Temperature 97.7 F Height 59.5 inches 4'11.50" Weight 112.00 lb BMI (Body Mass Index) 22.2 kg/m2 12/04/2017 BP Systolic 106 mmHg BP Diastolic 60 mmHg Heart Rate 90 /min Body Temperature 97.5 F Respiratory Rate 16 /min Height 59.5 inches 4'11.50" Weight 109.50 lb BMI (Body Mass Index) 21.7 kg/m2 09/30/2017 BP Systolic 116 mmHg BP Diastolic 72 mmHg Heart Rate 64 /min Body Temperature 97.5 F Respiratory Rate 16 /min Height 59.5 inches 4'11.50" Weight 110.00 lb BMI (Body Mass Index) 21.8 kg/m2 08/18/2017 BP Systolic 118 mmHg BP Diastolic 62 mmHg Heart Rate 80 /min Body Temperature 97.9 F Respiratory Rate 16 /min Height 59.5 inches 4'11.50" Weight 109.00 lb BMI (Body Mass Index) 21.6 kg/m2 05/26/2017 BP Systolic 130 mmHg BP Diastolic [...] Test Date Test Result H/L Range Note Comprehensive Metabolic Prof 02/15/2018 Sodium 137 mEq/L 134-149 Potassium 4.9 mEq/L 3.6-5.5 Chloride 92 mEq/L Low 94-112 1 Carbon Dioxide 24 mEq/L 21-32 Glucose 96 mg/dL 70-105 BUN 12 mg/dL 6-26 Creatinine 0.7 mg/dL 0.6-1.4 BUN/Creat Ratio 17.1 CALC 8.0-36.0 Calcium 10.4 mg/dL High 8.6-10.2 Total Protein 7.9 g/dL 6.4-8.3 Albumin 4.8 g/dL 3.8-5.5 Globulin 3.1 g/dL 2.0-4.8 A/G Ratio 1.5 CALC 0.6-2.3 Alk. Phosphatase 65 U/L 30-110 Alt (SGPT) 28 U/L 7-35 Ast (Sgot) 27 U/L 5-34 Total Bilirubin 0.6 mg/dL 0.2-1.3 2 GFR Non- >60 ml/min/1.73m^ >=60 GFR >60 ml/min/1.73m^ >=60 Lipid Profile 02/15/2018 Cholesterol 179 mg/dL 120-200 Triglycerides 319 mg/dL High 30-200 HDL Cholesterol 42 mg/dL 30-85 LDL (Calculated) 73 CALC 0-129 VLDL Cholesterol 64 mg/dL High 0-50 HDL Risk Factor 4.3 CALC 0.0-4.4 Laboratory test finding 02/15/2018 TSH 2.39 mIU/L 0.50-6.00 Free T4 0.99 ng/dL 0.75-1.54 CBC Electronic Fma 02/15/2018 WBC 7.2 x10^3/UL 4.0-10.0 RBC 4.59 x10^6/UL 3.93-6.00 HGB 13.6 g/dL 12.0-17.0 HCT 40 % 35-50 MCV 87.4 fL 80.0-95.0 MCH 29.6 pg 25.6-32.2 MCHC 33.9 g/dL 32.2-36.0 RDW-CV 13.2 % 11.6-14.4 PLT 181 x10^3/UL 163-400 MPV 10.4 fL 9.4-12.4 Dony# 3.82 x10^3/UL 1.56-6.13 Lymph# 2.47 x10^3/UL 1.18-3.74 [place]# 0.61 x10^3/UL 0.24-0.82 Eos # 0.2 x10^3/UL 0.0-0.5 Baso # 0.04 x10^3/UL 0.01-0.08 Dony% 53.4 % 34.0-70.0 Lymph % 34.5 % 20.0-52.0 [place]% 8.5 % 5.0-12.0 Eos% 2.9 % 0.7-7.0 Baso% 0.6 % 0.1-1.2 Laboratory test finding 02/15/2018 LDL, Direct 92 mg/dL 0-130 Laboratory test finding 02/15/2018 Hemoglobin A1c (Fma) 5.8 % High 4.1- 5.7 Ua - Non Micro (Fma) 12/04/2017 Appearance CLEAR Color YELLOW Glucose, Urine (Fma/CMC/CTX) NEG Bilirubin NEG Ketones NEG SP Grav <=1.005 Blood NEG PH 5.5 Protein NEG Urobil 0.2 Nitrite NEG Leukocytes (a/[facility]/Centrex) NEG Urine Culture And 11/27/2017 Urine Culture SEE RESULT BELOW 3 Sensitivities Poc Urinalysis 11/27/2017 Poc Glucose, Urine Negative Negative Poc Bilirubin, Urine Negative Negative Poc Ketone, Urine Negative Negative Poc Specific [place], Urine 1.010 1.010-1.030 Poc Blood, Urine 3+ Negative Poc pH, Urine 7.0 5-9 Poc Protein, Urine Trace Negative Poc Urobilinogen, Urine 0.2 Negative Poc Nitrite, Urine Negative Negative Poc Leukocytes, Urine 3+ Negative Poc Color, Urine Sonal Poc Clarity, Urine Cloudy 4 Comprehensive Metabolic Prof 10/28/2017 Sodium 130 mEq/L Low 134-149 Potassium 4.0 mEq/L 3.6-5.5 Chloride 91 mEq/L Low 94-112 5 Carbon Dioxide 30 mEq/L 21-32 Glucose 81 mg/dL 70-105 BUN 9 mg/dL 6-26 Creatinine 0.6 mg/dL 0.6-1.4 BUN/Creat Ratio 15.0 CALC 8.0-36.0 Calcium 9.2 mg/dL 8.6-10.2 Total Protein 7.1 g/dL 6.4-8.3 Albumin 4.2 g/dL 3.8-5.5 Globulin 2.9 g/dL 2.0-4.8 A/G Ratio 1.4 CALC 0.6-2.3 Alk. Phosphatase 57 U/L 30-110 Alt (SGPT) 28 U/L 7-35 Ast (Sgot) 23 U/L 5-34 Total Bilirubin 0.5 mg/dL 0.2-1.3 GFR Non- >60 ml/min/1.73m^ >=60 GFR >60 ml/min/1.73m^ >=60 Lipid Profile 10/28/2017 Cholesterol 132 mg/dL 120-200 Triglycerides 162 mg/dL 30-200 HDL Cholesterol 40 mg/dL 30-85 LDL (Calculated) 60 CALC 0-129 VLDL Cholesterol 32 mg/dL 0-50 HDL Risk Factor 3.3 CALC 0.0-4.4 Laboratory test finding 10/28/2017 TSH 3.08 mIU/L 0.50-6.00 Free T4 0.99 ng/dL 0.75-1.54 Laboratory test finding 10/28/2017 Hemoglobin A1c (Fma) 5.8 % High 4.1- 5.7 Ua - Non Micro (Fma) 10/28/2017 Appearance CLEAR Color YELLOW Glucose, Urine (Fma/CMC/CTX) NEGATIVE Bilirubin NEGATIVE Ketones NEGATIVE SP Grav <=1.005 Blood NEGATIVE PH 5.5 Protein NEGATIVE Urobil 0.2 Nitrite NEGATIVE Leukocytes (Fma/CMC/Centrex) NEGATIVE CBC Auto Diff 06/02/2017 White Blood Count 8.0 10^3/uL 3.5-10.8 Red Blood Count 4.63 10^6/uL 4.0-5.4 Hemoglobin 13.5 g/dL 12.0-16.0 Hematocrit 40 % 35-47 Mean Corpuscular Volume 87 fL 80-97 Mean Corpuscular Hemoglobin 29 pg 27-31 Mean Corpuscular HGB Conc 34 g/dL 31-36 Red Cell Distribution Width 15 % 10.5-15 Platelet Count 172 10^3/uL 150-450 Mean Platelet Volume 8 um3 7.4-10.4 Abs Neutrophils 5.0 10^3/uL 1.5-7.7 Abs Lymphocytes 2.3 10^3/uL 1.0-4.8 Abs Monocytes 0.6 10^3/uL 0-0.8 Abs Eosinophils 0.1 10^3/uL 0-0.6 Abs Basophils 0 10^3/uL 0-0.2 Abs Nucleated RBC 0 10^3/uL Granulocyte % 62.2 % 38-83 Lymphocyte % 28.5 % 25-47 Monocyte % 7.6 % 1-9 Eosinophil % 1.3 % 0-6 Basophil % 0.4 % 0-2 Nucleated Red Blood Cells % 0 Comp Metabolic Panel 06/02/2017 Sodium 134 mmol/L 133-145 Potassium 4.0 mmol/L 3.5-5.0 Chloride 97 mmol/L Low 101-111 Co2 Carbon Dioxide 30 mmol/L 22-32 Anion Gap 7 mmol/L 2-11 Glucose 102 mg/dL High 70-100 Blood Urea Nitrogen 9 mg/dL 6-24 Creatinine 0.62 mg/dL 0.51-0.95 BUN/Creatinine Ratio 14.5 8-20 Calcium 9.5 mg/dL 8.6-10.3 Total Protein 7.7 g/dL 6.4-8.9 Albumin 4.0 g/dL 3.2-5.2 Globulin 3.7 g/dL 2-4 Albumin/Globulin Ratio 1.1 1-3 Total Bilirubin 0.70 mg/dL 0.2-1.0 Alkaline Phosphatase 57 U/L 34-104 Alt 20 U/L 7-52 Ast 19 U/L 13-39 Egfr Non- 91.3 >60 Egfr 117.4 >60 6 Laboratory test finding 06/02/2017 C Reactive Protein 1.02 mg/L < 5.00 7 Laboratory test finding 01/28/2017 TSH 4.37 mIU/L [...] 3.7 x10^3/UL 1.5-7.2 Lymph# 2.3 x10^3/UL 0.7-4.9 [place]# 0.3 x10^3/UL 0.1-0.9 Gran % 57.2 % 42.2-75.2 Lymph % 37.0 % 20.5-51.1 [place]% 5.8 % 1.7-9.3 Laboratory test finding 01/28/2017 Vitamin D25 27 Low 30-100 Magnesium, Serum 2.3 mEq/L High 1.2-2.1 Vitamin B-12 627 pg/mL 230-1050 LDL, Direct 61 mg/dL 0-130 Laboratory test finding 01/28/2017 Hemoglobin A1c (Fma) 5.7 % 4.1-5.7 1 RESULTS VERIFIED BY REPEAT ANALYSIS 2 RAN OUT OF TBIL-RESULT DAVION''D AND CORRECTED 3 SEE RESULT BELOW Name: CARON DEL VALLE : [address]: Ankur Bustamante MD Acct: [id number] Unit: [id number] AGE: 87 Location: [facility] Re11/27/17 SEX: F Status: DEP ER SPEC: [id number] JORGE: 11/27/17-1136 [facility] DR: Arden MOLINA REQ: [id number] RECD: 11/27/17 STATUS: REYNALDO STEINER DR: Maria Ines Lopez MD [facility] _ SOURCE: URINE SPDESC: ORDERED: Urine Culture COMMENTS: [id number] Procedure Result Reported Site Urine Culture Final 11/29/17- 0841 ML Organism 1 KLEBSIELLA ORNITHINOLYTICA [place] Count >100,000 (Many) CFU/ML 1. KLEBSIELLA ORNITHINOLYTICA M.I.C. RX --------- ------ Ampicillin R Cefazolin <=4 S Cefepime <=1 S Ceftriaxone <=1 S Ciprofloxacin <=0.25 S Gentamicin <=1 S Levofloxacin <=0.12 S Meropenem <=0.25 S Nitrofurantoin <=16 S Tetracycline <=1 S Pipercillin/Tazobactam <=4 S Trimethoprim/Sulfamethoxazole <=20 S Amoxicillin/Clavulanic Acid <=2 S Aztreonam <=1 S Contact the Microbiology Department for any additional antibiotic reporting. * ML - Main Lab . END OF REPORT DEPARTMENT OF PATHOLOGY, [address] [place] [address] Liam Freeman M.D. Director [facility] # [id number] 4 Cable Assembler: [id number] RESULTS VERIFIED BY REPEAT ANALYSIS 6 Because ethnic data is not always [...] 5 Kidney failure <15 (or dialysis) 7 Acute inflammation: >10.00 Procedures Date CPT Code Description Status 01/17/2018 35568 Remove Impact Cerumen Irrigati Completed Encounters Type Date Location Provider CPT E/M Dx Office Visit 02/26/2018 12:10p [facility] Office Maria Ines Lopez M.D. 86605 S46.292A X50.3xxA Office Visit 02/15/2018 9:40a [facility] Office Maria Ines Lopez M.D. 26311 R73.01 F41.9 I25.10 E03.9 Z23 E78.1 Office Visit 01/25/2018 1:15p [facility] [place] [address] J01.90 K13.70 Office Visit 01/17/2018 11:40a [facility] [place] [address] J01.90 H61.22 Office Visit 12/04/2017 11:15a [facility] [place] [place] [address] N39.0 R19.7 Office Visit 09/30/2017 10:30a [facility] Office STEVE Valdez 11207 M54.2 Office Visit 05/26/2017 8:50a [facility] Office Maria Ines Lopez M.D. 17480 I25.10 F41.9 Office Visit 04/14/2017 9:00a [facility] Maria Ines Lopez M.D. 53202 G56.11 Office Visit 01/19/2017 9:10a [facility] Office Maria Ines Lopez M.D. 64473 R42 I25.10 I10 F41.9 Office Visit 01/13/2017 9:40a [facility] Office Maria Ines Lopez M.D. 07891 E03.9 R73.01 E78.5 I25.10 E55.9 M25.571 J45.40 M81.0 L29.2 Plan of Care Future Appointment(s):09/07/2018 10:20 am - Maria Ines Lopez M.D. at [facility] Aretyi3404/20/2018 - Maria Ines Lopez M.D.R12 HeartburnComments:use ranitidine up to 2x a day and tums as needed call if symptoms aren't better in 2 bnwarM01.82 Postnasal dripComments:use saline rinses, continue nose spraysAllComments:~B_~U_ Medication Management~b_~u_ Patient Understands medications she's taking? Yes No Are there Barriers to Adherence? Yes No Has the patient been asked about herbal supplements and therapies, and OTC meds? Yes No
[2018-05-15 14:42] VITALS: BP 159/84
--- NOTE | 2018-05-15 15:20 | UC ---
Complaint Female HPI - HPI Summary HPI Summary: left flank pain began about 3pm--no fever chills nausea vomiting or diarrhea--- seemed to be voiding frequently this morning - History Of Current Complaint Chief Complaint: UCGU Stated Complaint: URINARY COMPLAINT Time Seen by Provider: 05/15/18 14:32 Hx Obtained From: Patient ?: No Onset/Duration: Sudden Onset, Lasting Hours Timing: Constant Pain Intensity: 2 Pain Scale Used: 0-10 Numeric Character: Colicy Aggravating Factor(s): Nothing Alleviating Factor(s): Nothing Associated Signs And Symptoms: Positive: Back Pain - Allergies/Home Medications Allergies/Adverse Reactions: Allergies Allergy/AdvReac Type Severity Reaction Status Date / Time lactose Allergy Diarrhea Verified 05/15/18 14:43 amoxicillin AdvReac Nausea And Verified 05/15/18 14:43 Vomiting azithromycin [From Zithromax] AdvReac Nausea And Verified 05/15/18 14:43 Vomiting cephalexin AdvReac Nausea And Verified 05/15/18 14:43 Vomiting ciprofloxacin [From Cipro] AdvReac Nausea And Verified 05/15/18 14:43 Vomiting clavulanic acid AdvReac Nausea And Verified 05/15/18 14:43 Vomiting codeine AdvReac Nausea And Verified 05/15/18 14:43 Vomiting latanoprost AdvReac Nausea And Verified 05/15/18 14:43 Vomiting levofloxacin [From Levaquin] AdvReac Nausea And Verified 05/15/18 14:43 Vomiting shellfish derived AdvReac Nausea And Verified 05/15/18 14:43 Vomiting sulfamethoxazole AdvReac Nausea And Verified 11/27/17 11:11 Vomiting trimethoprim AdvReac Nausea And Verified 11/27/17 11:11 Vomiting enviromental Allergy Mild itchy eyes Uncoded 06/29/17 10:44 PMH/Surg Hx/FS Hx/Imm Hx Previously Healthy: No Endocrine History: Hypothyroidism, Dyslipidemia Cardiovascular History: Pacemaker/ICD, Myocardial Infarction GI/ History: Gastroesophageal Reflux - Surgical History Surgical History: Yes Surgery Procedure, Year, and Place: cardiac surgery done 03/2013, valve replacement. PACEMAKER 2013 [place] - Family History Known Family History: Positive: Cardiac Disease, Other - COLON CA; ALZ; DEMENTIA - Social History Occupation: Retired Lives: With Family Alcohol Use: None Substance Use Type: None Smoking Status (MU): Never Smoked Tobacco - Immunization History Most Recent Influenza Vaccination: 01/2017 Most Recent Tetanus Shot: up to date Most Recent Pneumonia Vaccination: received Review of Systems All Other Systems Reviewed And Are Negative: Yes Constitutional: Positive: Negative Skin: Positive: Negative Eyes: Positive: Negative ENT: Positive: Negative Respiratory: Positive: Negative Cardiovascular: Positive: Negative Gastrointestinal: Positive: Negative Genitourinary: Positive: Other - left side/back pain Motor: Positive: Negative Neurovascular: Positive: Negative Musculoskeletal: Positive: Negative Neurological: Positive: Negative Psychological: Positive: Negative Is Patient Immunocompromised?: No Physical Exam Triage Information Reviewed: Yes Appearance: Well-Appearing, No Pain Distress, Well-Nourished Vital Signs: Initial Vital Signs Temp 97.1 F 05/15/18 14:36 Pulse 87 05/15/18 14:36 Resp 18 05/15/18 14:36 BP 159/84 05/15/18 14:36 Pulse Ox 96 05/15/18 14:36 Vital Signs Reviewed: Yes Eye Exam: Normal Eyes: Positive: Conjunctiva Clear ENT Exam: Normal ENT: Positive: Normal ENT inspection, Hearing grossly normal. Negative: Trismus , Muffled voice, Hoarse voice Dental Exam: Normal Neck exam: Normal Neck: Positive: Supple, Nontender Respiratory Exam: Normal Respiratory: Positive: No respiratory distress, No accessory muscle use Cardiovascular Exam: Normal Cardiovascular: Positive: RRR, Pulses Normal, Brisk Capillary Refill Abdominal Exam: Normal Abdomen Description: Positive: Nontender, No Organomegaly, Soft, CVA Tenderness (L). Negative: CVA Tenderness (R) Musculoskeletal Exam: Normal Musculoskeletal: Positive: Strength Intact, ROM Intact, No Edema Neurological Exam: Normal Neurological: Positive: Alert, Muscle Tone Normal Psychological Exam: Normal Skin Exam: Normal Complaint Female Dx - Course Course Of Treatment: increase fluids, macrobid, culture urine, follow with pcp - Differential Dx/Diagnosis Provider Diagnosis: UTI (urinary tract infection), Hypertension Discharge - Sign-Out/Discharge Documenting (check all that apply): Patient Departure All imaging exams completed and their final reports reviewed: No Studies - Discharge Plan Condition: Stable Disposition: HOME Prescriptions: Nitrofurantoin Monohyd/M-Cryst [Macrobid 100 mg Capsule] 100 mg PO BID 5 Days # 10 cap Patient Education Materials: Hypertension (ED), Urinary Tract Infection in Older Adults (ED) Referrals: Maria Ines Lopez MD [Primary Care Provider] - 1 Week - Billing Disposition and Condition Condition: STABLE Disposition: Home - Attestation Statements Provider Attestation: I was available for consult. This patient was seen by the KAILEY. The patient was not presented to , seen by or examined by ma -Tyrone Matthew MD
== END 2018-05-15 15:30 | disposition home or self-care (01) ==
LOC: UCEAST 14:26
DX: I10 Essential (primary) hypertension (principal); N39.0 Urinary tract infection, site not specified; Z88.0 Allergy status to penicillin; Z88.1 Allergy status to other antibiotic agents; Z88.8 Allergy status to other drugs, medicaments and biological substances; Z88.5 Allergy status to narcotic agent; Z95.811 Presence of heart assist device
CPT/HCPCS: 81003; 87086; 99212; G0463

== ENCOUNTER 2018-07-28 14:18 | Emergency (ER) | payer MEDICARE, OTHER ==
--- OUTSIDE RECORDS SUMMARY | 2018-07-28 14:24 | XMS REPORT | Continuity of Care Document ---
:1930 External Reference #:[id number] Author Name Natividad Cote Care Team Providers Name Role Phone Maria Ines Lopez MD Primary Care Physician Unavailable Payers Date Identification Numbers Payment Provider Subscriber Policy Number: [id number] Medicare Caron Khalil PayID: [id number] [address] [facility] [place] [address] Effective: 1996 Policy Number: [id number] Medicare Caron Khalil Expires: 2018 PayID: [id number] [address] [place] [address] Policy Number: [id number] [employer] Caron Khalil Group Number: [id number] [id number] PayID: [id number] [place] [address] Expires: 2017 Policy Number: [id number] [employer] Caron Khalil Group Number: [id number] [facility] [id number] PayID: [id number] [place] [address] Advance Directives Description No Information Available Problems Date Description Provider Status Onset: 01/24/2013 Heart murmur Sky Queen M.D., MIL, Active FSCAI Onset: 01/24/2013 Hyperlipidemia Sky Queen M.D., DEISY, Active [facility]SCAI Onset: 01/30/2013 Aortic valve disorder Jorge Luis Fischer M.D., Active DEISY, FASNC Onset: 02/21/2013 Chronic ischemic heart disease Sky Queen M.D., MIL, Active FSCAI Onset: 11/17/2013 H/O: pacemaker in situ Jorge Luis Fischer M.D., Active CRESENCIO OLIVAS Onset: 06/03/2015 Paroxysmal ventricular Jorge Luis Fischer M.D., Active tachycardia CRESENCIO OLIVAS Onset: 06/19/2016 Heart valve replacement Jorge Luis Fischer M.D., Active CRESENCIO OLIVAS Onset: 04/16/2017 Bilateral carpal tunnel syndrome Dillon Willis MD Active Onset: 04/16/2017 Acquired trigger finger Dillon Willis MD Active Onset: 05/18/2017 Mitral valve disorder Jorge Luis Fischer M.D., Active CRESENCIO OLIVAS Family History Date Family Member(s) Observation Comments General Hypertension father and mother General NM Brother 1 age 89 General Cancer Social History Type Date Description Comments Sex Unknown Marital Status Lives With Alone Occupation Retired Work Status Not Currently 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 She states she does exercise on a regular basis being busy, but does not do formal walking. ETOH Use Denies alcohol use Tobacco Use Start: Unknown Patient has never smoked Recreational Drug Use Never Used Drugs Smoking Status Reviewed: 07/19/18 Patient has never smoked Exercise Type/Frequency Does housework daily Allergies, Adverse Reactions, Alerts Date Description Reaction Status Severity Comments 01/20/2013 Sulfamethoxazole upset stomach Active per patient 08/12/2012 Zithromax upset stomach Active per patient 08/12/2012 Levaquin upset stomach Active per patient 08/12/2012 Codeine upset stomach Active per patient 08/12/2012 Amoxicillin upset stomach Active per patient 08/12/2012 Augmentin upset stomach Active per patient 08/12/2012 Cipro upset stomach Active per patient 01/20/2013 Cephalexin Active 01/24/2013 Trimethoprim Active 02/21/2013 Clavulanic Acid Active 11/17/2013 Latanoprost eye swelling , itch Active per patient 11/17/2013 Shellfish-derived Products Active per patient Medications Medication Date Status Form Strength Qnty SIG Indications Ordering Provider Ventolin HFA 05/13/ Active Aerosol 108(90Base 3mon prn Tito, 2016 ) mcg/Act MD Vasyl Metoprolol 04/13/ Active Tablets 25mg 90tab 1/2 tab Jorge Luis Tartrate 2012 s by mouth Bjorn twice chandra Engel M.D., [facility] Atorvastatin / Active Tablets 40mg 90tab 1 po qd Unknown Calcium 0000 s Ipratropium / Active Solution 0.03% 30ml instill 1 Unknown [place] 0000 sprays in each nostril twice a day Aspirin Low / Active Tablets 81mg 30tab 1 po qd Unknown Dose 0000 s Levoxyl / Active Tablets 25mcg 90tab take one Unknown 0000 s tab in the am Multivitamins / Active Capsules 30cap 1 capsule Unknown 0000 s daily Calcium 600 + / Active Tablets 600-200mg- [...] 0000 po twice Ahmad M., daily prn MD Preservision / Active Capsules Areds 2 take [...] Furoate 0000 sprays into each nostril daily Xyzal Allergy / Active Tablets 5mg 1 by Unknown 24HR 0000 mouth every day Tramadol 05/26/ Hx Tablets 37.5-325mg 30tab 1-2 tab Dillon Hydrochloride/A 2018 - s by mouth Willis, cetaminophen 07/06/ every 4-6 MD 2018 hours as needed Lasix 12/16/ Hx Tablets 20mg 7tabs Take one Georges Kaba 2017 - tablet john Vera, 05/04/ needed DO [facility] 2018 for swelling of the feet Metoprolol 02/21/ Hx Tablets ER 25mg 30tab 1/2 po qd Sky Succinate ER 2012 - 24HR s Bret 04/12/ Js, 2012 [facility], FSCAI Sertraline HCL 03/15/ Hx Tablets 25mg 30tab 1 po qd Marita Pate 2011 - s Soniaman, 04/12/ MSantos 2012 Pantoprazole / Hx Tablets DR 20mg 30tab 1 po q am Unknown Sodium 0000 - s as needed 2014 Desloratadine / Hx Tablets 5mg 1 tab po Unknown Odt 0000 - Dispers q evening as needed 2018 Meloxicam / Hx Tablets 15mg 30tab 1 po qd Unknown 0000 - s prn 2012 Calcium / Hx Tablets 1000 1 po qd Unknown 0000 - 2012 Qvar / Hx Aerosol 80mcg/Act 1unit 2 puff Cifuentes, 0000 - s inhaled Jose Antonio 06/18/ twice MD stephen 2017 daily until gone then will switch to Flovent Ventolin HFA / Hx Aerosol 108(90Base 3mon 1 puff Unknown 0000 - ) mcg/Act bid prn 2014 Fiber Complete / Hx Tablets 60tab prn Unknown 0000 - s 2012 Colace / Hx Capsules 100mg 60cap 1 po bid Unknown 0000 - s prn 2017 Vitamin C / Hx 500mg 1 tab [...] 0000 - s for 30 2013 Metoprolol / Hx Tablets 25mg 60tab 05/04 Unknown Tartrate 0000 - s tablet 04/13/ (12.5 mg) 2012 po bid Prozac / Hx Capsules 10mg 1 by Unknown 0000 - mouth every day 2018 Medications Administered in Office Medication Date Status Form Strength Qnty SIG Indications Ordering Provider Depomedrol Administered Injection Eulalio F 40MG 018 MD Aditi Inj, Administered Injection Jorge Luis Bjorn Regadenoson, 018 Fischer, 0.1 MG M.D., FACC, FASNC Technetium TC Administered Injection Jorge Luis Milan 99M 018 Linda Fischer M.D., FACC, Per Unit Dose FASNC Up To 40 Millicuries Celestone 3 mg Administered Injection Dillon and 3mg 017 MD Lazaro Inj, Administered Injection Jorge Luis Milan Regadenoson, 016 Fischer, 0.1 MG M.D., FACC, FASNC Technetium TC Administered Injection Jorge Luis Milan 99M 016 Linda Fischer M.D., FACC, Per Unit Dose FASNC Up To 40 Millicuries Immunizations Description No Information Available Vital Signs Date Vital Result Comment 07/19/2018 1:03pm Height 59 inches 4'11" Weight 110.25 lb Heart Rate 93 /min BP Systolic Sitting 118 mmHg reg adult cuff right arm BP Diastolic Sitting 80 mmHg reg adult cuff right arm O2 % BldC Oximetry 95 % BMI (Body Mass Index) 22.3 kg/m2 04/12/2018 11:43am Height 59 inches 4'11" Weight 109.00 lb Heart Rate 84 /min Respiratory Rate 16 /min Body Temperature 96.8 F Pain Level 4 BMI (Body Mass Index) 22.0 kg/m2 02/28/2018 3:01pm Height 59 inches 4'11" Weight 105.00 lb Heart Rate 79 /min Respiratory Rate 15 /min Pain Level 6 BMI (Body Mass Index) 21.2 kg/m2 07/20/2017 1:19pm Height 59 inches 4'11" Weight 109.00 lb Heart Rate 81 /min Respiratory Rate 14 /min Pain Level 0 BMI (Body Mass Index) 22.0 kg/m2 07/07/2017 9:22am Height 59 inches 4'11" Weight 109.00 lb ith shoes Heart Rate 64 /min BP Systolic Sitting 122 mmHg Lue reg cuff BP Diastolic Sitting 70 mmHg Lue reg cuff BP Systolic Standing 120 mmHg Lue reg cuff BP Diastolic Standing 70 mmHg Lue reg cuff Respiratory Rate 16 /min BMI (Body Mass Index) 22.0 kg/m2 Ejection Fraction 60-65% ECho 05/2006/09/2017 8:16am Height 59 inches 4'11" Heart Rate 87 /min BP Systolic 110 mmHg BP Diastolic 76 mmHg Respiratory Rate 16 /min Body Temperature 97.7 F Pain Level 5 05/18/2017 12:45pm Height 59 inches 4'11" Weight 109.00 lb Heart Rate 64 /min BP Systolic Sitting 110 mmHg Lue reg cuff BP Diastolic Sitting 70 mmHg Lue reg cuff BP Systolic Standing 116 mmHg Lue BP Diastolic Standing 72 mmHg Lue Respiratory Rate 16 /min BMI (Body Mass Index) 22.0 kg/m2 Ejection Fraction 60-65% 05/04/17 05/14/2017 9:15am Height 59 inches 4'11" Weight 111.00 lb BP Systolic 118 mmHg BP Diastolic 72 mmHg Respiratory Rate 18 /min Body Temperature 97.9 F Pain Level 0 BMI (Body Mass Index) 22.4 kg/m2 04/16/2017 8:24am Height 59 inches 4'11" Weight 111.00 lb Heart Rate 62 /min BP Systolic Sitting 110 mmHg BP Diastolic Sitting 77 mmHg Pain Level 2 BMI (Body Mass Index) 22.4 kg/m2 06/19/2016 9:14am Height 59 inches 4'11" Weight 107.12 lb Heart Rate 88 /min BP Systolic Sitting 122 mmHg right, regular BP Diastolic Sitting 78 mmHg right, regular BP Systolic Standing 122 mmHg right, regular BP Diastolic Standing 72 mmHg right, regular Respiratory Rate 18 /min O2 % BldC Oximetry 97 % BMI (Body Mass Index) 21.6 kg/m2 06/03/2015 9:45am Height 59 inches 4'11" Weight 117.00 lb with shoes Heart Rate 76 /min BP Systolic Sitting 152 mmHg Ra reg cuff BP Diastolic Sitting 78 mmHg Ra reg cuff BP Systolic Standing 150 mmHg Ra reg cuff BP Diastolic Standing 78 mmHg Ra reg cuff Respiratory Rate 14 /min BMI (Body Mass Index) 23.6 kg/m2 Ejection Fraction 60-65% 05/06/15 11/19/2014 10:36am Height 59 inches 4'11" Weight 113.00 lb with shoes Heart Rate 70 /min BP Systolic Sitting 130 mmHg Ra reg cuff BP Diastolic Sitting 68 mmHg Ra reg cuff BP Systolic Standing 122 mmHg Ra reg cuff BP Diastolic Standing 70 mmHg Ra reg cuff Respiratory Rate 16 /min BMI (Body Mass Index) 22.8 kg/m2 11/17/2013 10:29am Height 59 inches 4'11" Weight 113.00 lb without shoes Heart Rate 64 /min BP Systolic Sitting 158 mmHg Ra reg cuff BP Diastolic Sitting 78 mmHg Ra reg cuff BP Systolic Standing 162 mmHg Ra reg cuff BP Diastolic Standing 80 mmHg Ra reg cuff Respiratory Rate 12 /min BMI (Body Mass Index) 22.8 kg/m2 06/26/2013 10:42am Heart Rate 6068 /min BP Systolic Sitting 124 mmHg L arm, Regular cuff BP Diastolic Sitting 80 mmHg L arm, Regular cuff BP Systolic Standing 128 mmHg BP Diastolic Standing 80 mmHg Respiratory Rate 18 /min 05/11/2013 2:46pm Height 58 inches 4'10" Weight 112.00 lb Heart Rate 88 /min BP Systolic Sitting 136 mmHg LA reg cuff BP Diastolic Sitting 78 mmHg LA reg cuff BP Systolic Standing 140 mmHg LA BP Diastolic Standing 80 mmHg LA Respiratory Rate 18 /min BMI (Body Mass Index) 23.4 kg/m2 04/13/2013 9:28am Height 58 inches 4'10" Weight 108.00 lb [...] BMI (Body Mass Index) 22.6 kg/m2 02/21/2013 2:57pm Height 59 inches 4'11" Weight 110.00 lb Heart Rate 6672 /min BP Systolic Sitting 144 mmHg right arm, reg cuff BP Diastolic Sitting 76 mmHg right arm, reg cuff BP Systolic Standing 138 mmHg right arm, reg cuff BP Diastolic Standing 72 mmHg right arm, reg cuff Respiratory Rate 20 /min BMI (Body Mass Index) 22.2 kg/m2 01/30/2013 12:50pm Height 59 inches 4'11" Weight 112.38 lb Heart Rate 72 /min BP Systolic Sitting 138 mmHg Ra reg cuff BP Diastolic Sitting 74 mmHg Ra reg cuff BP Systolic Standing 144 mmHg Ra BP Diastolic Standing 80 mmHg Ra Respiratory Rate 16 /min BMI (Body Mass Index) 22.7 kg/m2 01/24/2013 10:58am Height 58 inches 4'10" Weight 113.00 lb [...] BMI (Body Mass Index) 23.6 kg/m2 08/12/2012 10:49am Heart Rate 64 /min BP Systolic Sitting 120 mmHg BP Diastolic Sitting 68 mmHg Respiratory Rate 14 /min Results Test Date Facility Test Result H/L Range Note Urine Culture And 05/15/2018 [facility] Urine SEE RESULT 1 , [address] [place] [address] [phone] Poc Urinalysis 05/15/2018 [facility] Poc Glucose, Negative Negative [address] [place] [address] [phone] Poc Bilirubin, Urine Negative Negative Poc Ketone, Urine Trace Abnormal Negative Poc Specific [place], Urine 1.010 N 1.010-1.030 Poc Blood, Urine 1+ Abnormal Negative Poc pH, Urine 5.5 N 5-9 Poc Protein, Urine Negative Negative Poc Urobilinogen, Urine 0.2 Negative Poc Nitrite, Urine Negative Negative Poc Leukocytes, Urine 1+ Abnormal Negative Poc Color, Urine Yellow Poc Clarity, Urine Clear 3 Lipid Profile 06/06/2013 [facility] Triglycerides 364 mg/dL High 40-200 (Trig/Chol/HDL) [address] [place] [address] [phone] Cholesterol 190 mg/dL Less than 200 HDL Cholesterol 40 mg/dL 40-60 4 Cholesterol/HDL Ratio 4.8 Average High 1-4.44 LDL Cholesterol 77.2 Less Than 100 5 Liver Function 06/06/2013 [facility] Total Protein 6.7 g/dL 6.2-8.[address] [place] [address] [phone] Albumin 4.0 g/dL 3.2-5.2 Globulin 2.7 g/dL 2-4 Albumin/Globulin Ratio 1.5 1-3 Total Bilirubin 0.7 mg/dL 0.4-1.5 Direct Bilirubin 0.1 mg/dL 0.1-0.5 Indirect Bilirubin 0.6 mg/dL 0.3-1.0 Alkaline Phosphatase 60 U/L 30-110 Alt 30 U/L 14-54 Ast 28 U/L 12-42 Laboratory test 06/06/2013 [facility] Hemoglobin A1c 6.1 % High Less than [address] 6[address]0 [place] [address] [phone] Free T4 0.67 ng/mL 0.61-1.24 TSH (Thyroid Stimulating Horm) 1.81 miu/mL 0.34-5.60 CRP High Sensitivity 1.2 mg/L 7 CBC Auto Diff 06/06/2013 [facility] White Blood 5.6 10^3/uL 4.8-10.[address] [place] [address] [phone] Red Blood Count 4.91 10^6/uL 4.0-5.4 Hemoglobin [...] Red Blood Cells % 0.2 Laboratory test 06/06/2013 [facility] Erythrocyte Sed 20 mm/Hr 0-[address] [place] [address] [phone] Basic Metabolic 06/06/2013 [facility] Sodium 136 mmol/L 133- [address] [place] [address] [phone] Potassium 4.0 mmol/L 3.5-5.0 Chloride 100 mmol/L Low 101-111 Co2 Carbon Dioxide 29.0 mmol/L 22-32 Anion Gap 7.0 mmol/L 2-11 Glucose 81 mg/dL 70-100 Blood Urea Nitrogen 12 mg/dL 6-24 Creatinine 0.70 mg/dL 0.50-1.40 BUN/Creatinine Ratio 17.1 8-20 Calcium 9.1 mg/dL 8.1-9.9 Egfr Non- 80.1 >60 Egfr 103.0 >60 8 Basic Metabolic 02/20/2013 [facility] Sodium 131 mmol/L Low 133-[address] [place] [address] [phone] Potassium 4.0 mmol/L 3.5-5.0 Chloride 95 mmol/L Low 101-111 Co2 Carbon Dioxide 30.0 mmol/L 22-32 Anion Gap 6.0 mmol/L 2-11 Glucose 138 mg/dL High 70-100 Blood Urea Nitrogen 11 mg/dL 6-24 Creatinine 0.70 mg/dL 0.50-1.40 BUN/Creatinine Ratio 15.7 8-20 Calcium 9.3 mg/dL 8.1-9.9 Egfr Non- 80.3 >60 Egfr 103.3 >60 9 Laboratory 02/14/2013 [facility] Activated 30.0 22.18-37.[address] [place] [address] Thrombo Time [phone] Inr/Protime 02/14/2013 [facility] Inr 0.94 0.87-0.[address] [place] [address] [phone] Basic 02/14/2013 [facility] Sodium 124 mmol/L Low 133-[address] [place] [address] [phone] Potassium 4.1 mmol/L 3.5-5.0 Chloride 90 mmol/L Low 101-111 Co2 Carbon Dioxide 27.0 mmol/L 22-32 Anion Gap 7.0 mmol/L 2-11 Glucose 141 mg/dL High 70-100 Blood Urea Nitrogen 8 mg/dL 6-24 Creatinine 1.00 mg/dL 0.50-1.40 BUN/Creatinine Ratio 8.0 8-20 Calcium 9.1 mg/dL 8.1-9.9 Egfr Non- 53.2 >60 Egfr 68.4 >60 10 CBC No Diff 02/14/2013 [facility] White Blood 6.2 10^3/uL 4.8 -10.[address] [place] [address] [phone] Red Blood Count 4.58 10^6/uL 4.0-5.4 Hemoglobin 13.7 g/dL 12.0-16.0 Hematocrit 40 % 35-47 Mean Corpuscular Volume 87 fL 80-97 Mean Corpuscular Hemoglobin 30 pg 27-31 Mean Corpuscular HGB Conc 34 g/dL 31-36 Red Cell Distribution Width 14 % 10.5-15 Platelet Count 200 10^3/uL 150-450 Mean Platelet Volume 9 um3 7.4-10.4 1 [id number] 2 SEE RESULT BELOW Name: CARON KHALIL : [address]: Tyrone Matthew MD Acct: [id number] Unit: [id number] AGE: 87 Location: [facility] Re05/15/18 SEX: F Status: DEP ER SPEC: [id number] JORGE: 05/15/[address] [facility] [address]: Ankur Bustamante MD REQ: [id number] RECD: 05/16/18120 STATUS: REYNALDO STEINER DR: Maria Ines Matthew MD _ SOURCE: URINE SPDESC: ORDERED: Urine Culture COMMENTS: [id number] Procedure Result Reported Site Urine Culture Final 05/17/18- 1247 ML No growth of clinically significant organisms * ML - Main Lab . END OF REPORT DEPARTMENT OF PATHOLOGY, [address] [place] [address] Liam Freeman M.D. Director [facility] # [id number] 3 Administrative Dietitian: [id number] HDL Interpretation: Undesirable: High Risk: Less than 40 mg/dL Desirable: Low Risk: Greater than 60 mg/dL 5 LDL Interpretation: Low Risk Optimal Level: LDL Less than 100 mg/dL Near or Above Optimal: LDL 100-129 mg/dL Borderline High Risk: LDL 130-159 mg/dL High Risk: LDL 160-189 mg/dL Very High Risk: LDL Greater than 189 mg/dL 6 Therapeutic target for the treatment of diabetes Mellitus patients is <7% HBA1C, and in selective patients <6.0%.Please refer to [place] [employer] Diabetic care guidelines for further information. 7 Less Than 1.0......Low Risk of Cardiovascular Disease 1.0-3.0............Medium Risk (<2 Fold Increase) Greater Than 3.0...High Risk (Approximately 2-Fold Increase) 8 Because ethnic data is not always readily [...] 15-29 5 Kidney failure <15 (or dialysis) 9 Because ethnic data is not always readily [...] 15-29 5 Kidney failure <15 (or dialysis) 10 Because ethnic data is not always readily [...] Kidney failure <15 (or dialysis) Procedures Date Code Description Status 07/18/2018 35886 ECHO Transthoracic, Real-Time 2D With Doppler And Completed Color Flow 04/12/2018 25397 Inject/Drain Joint/Bursa Major W/O US Completed 04/04/2018 03459 Pace Maker Eval W/Iterative Adjment Dual Lead Completed 04/04/2018 69577 Pace Maker Eval W/Iterative Adjment Dual Lead Completed 10/13/2017 44674 Pace Maker Eval W/Iterative Adjment Dual Lead Completed 10/13/2017 02963 Pace Maker Eval W/Iterative Adjment Dual Lead Completed 06/29/2017 04386 Moderate Sedation Services; Same Phys Intl 15 Mins; PT Completed >=5 Years 06/29/2017 12659 Color Flow Doppler/Interp & Reprt Completed 06/29/2017 27363 Pulse Wave/Continuous-Interp.RPT Completed 06/29/2017 10753 Echocardiography, Transesophageal, Real Time W/Image Completed 2D W/W/O M-M 05/27/2017 11684 Carpal Tunnel Release Completed 05/27/2017 70199 Carpal Tunnel Release Completed 05/18/2017 81780 EKG Tracing & Interpretation Completed 05/17/2017 98108 Stress Test Completed 05/17/2017 67835 Myocardial Perfusion Imaging Tomographic (Spect) Completed Multiple Studies 05/04/2017 70163 ECHO Transthoracic, Real-Time 2D With Doppler And Completed Color Flow 05/04/2017 92269 ECHO Transthoracic, Real-Time 2D With Doppler And Completed Color Flow 04/20/2017 06739 Pace Maker Eval W/Iterative Adjment Dual Lead Completed 04/20/2017 40391 Pace Maker Eval W/Iterative Adjment Dual Lead Completed 04/16/2017 54079 Inject Tendon Sheath Or Ligament Aponeurosis Eg Completed Plantar Fascia 10/22/2016 [id number] Diabetic Retinal Eye Exam Completed 10/14/2016 [id number] Diabetic Retinal Eye Exam Completed 10/01/2016 62021 Pace Maker Eval W/Iterative Adjment Dual Lead Completed 08/28/2016 [id number] Diabetic Retinal Eye Exam Completed 06/19/2016 44496 EKG Tracing & Interpretation Completed 04/14/2016 19178 Pace Maker Eval W/Iterative Adjment Dual Lead Completed 10/09/2015 97617 Pace Maker Eval W/Iterative Adjment Dual Lead Completed 05/13/2015 36869 Myocardial Perfusion Imaging Tomographic (Spect) Completed Multiple Studies 05/13/2015 98458 Stress Test Completed 05/06/2015 89917 ECHO Transthoracic, Real-Time 2D With Doppler And Completed Color Flow 04/23/2015 40234 Pace Maker Eval W/Iterative Adjment Dual Lead Completed 11/19/2014 11584 EKG Tracing & Interpretation Completed 10/29/2014 93328 ECHO Transthoracic, Real-Time 2D With Doppler And Completed Color Flow 10/22/2014 71721 Pace Maker Eval W/Iterative Adjment Dual Lead Completed 05/02/2014 24342 Pace Maker Eval W/Iterative Adjment Dual Lead Completed 10/24/2013 39195 Pace Maker Eval W/Iterative Adjment Dual Lead Completed 10/23/2013 05917 ECHO Transthoracic, Real-Time 2D With Doppler And Completed Color Flow 05/11/2013 95709 Pace Maker Eval W/Iterative Adjment Dual Lead Completed 04/13/2013 42489 Pace Maker Eval W/Iterative Adjment Dual Lead Completed 04/13/2013 55192 EKG Tracing & Interpretation Completed 02/17/2013 47930 Cath PLMT&NJX L Ventriculog Img S&I Completed 01/25/2013 45294 ECHO Transthoracic, Real-Time 2D With Doppler And Completed Color Flow 01/24/2013 91262 EKG Tracing & Interpretation Completed Encounters Type Date Location Provider Dx Diagnosis Office Visit 04/12/2018 [facility]opedic Eulalio Bernal S46.112D Strain of 11:00a Services Of MD maría Bob/fasc/tend long head of biceps, left arm, subs M75.52 Bursitis of left shoulder Office Visit 02/28/2018 Orthopedic Eulalio Bernal S46.102A Unsp injury of 2:15p Services Of MD maría Pennington/fasc/tend long SylviaMStephanie hd bicep, left arm, init S46.112A Strain of musc/fasc/tend long head of biceps, left arm, init Office Visit 07/07/2017 9:15a [facility] Jorge Luis Milan I34.0 Nonrheumatic mitral Of Shani Fischer M.D., (valve) FACC, FASNC insufficiency 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 upper limbs M65.331 Trigger finger, right middle finger Office Visit 06/19/2016 10:00a Cardiology Jorge Luiscody Milan Z95.2 Presence of Services Of [facility] AT Js Fischer, prosthetic heart [facility] FACC, FASNC valve I25.810 Atherosclerosis of CABG w/o angina pectoris I47.2 Ventricular tachycardia Office Visit 06/03/2015 9:45a [facility] Jorge Luis Milan I47.2 Ventricular Of Shani Fischer M.D., tachycardia FACC, FASNC Office Visit 11/19/2014 10:45a [facility] Jorge Luis Milan 424.1 Aortic Valve Of Shani Fischer M.D., Disorder FACC, FASNC Office Visit 11/17/2013 10:30a [facility] Jorge Luis Milan 424.1 Aortic Valve Of Shani Fischer M.D., Disorder FACC, FASNC V45.01 Cardiac Pacemaker In Situ Postsurgical Office Visit 06/26/2013 10:15a [facility] Nurse Visit 424.1 Aortic Valve Of [facility] IC Disorder Office Visit 05/11/2013 3:00p [facility] Nurse Visit 424.1 Aortic Valve Of [facility] IC Disorder Office Visit 04/13/2013 9:00a [facility] Jorge Luis Milan 424.1 Aortic Valve Of Shani Fischer M.D., Disorder FACC, FASNC 414.9 Ischemic Heart Disease Chronic Unspec Office Visit 02/21/2013 2:45p [facility] Sky Queen, 424.1 Aortic Valve Of [facility] [place] [facility], FACC, Disorder [facility]SC[facility] 414.9 Ischemic Heart Disease Chronic Unspec Office Visit 01/30/2013 12:45p [facility] Jorge Luis Milan 424.1 Aortic Valve Of Shani Fischer M.D., Disorder [facility], FASNC Office Visit 01/24/2013 11:00a [facility] Sky Guevarak, 785.2 Murmur Cardiac Of Shani Weinstein, [facility], Undiagnosed FSCAI 272.4 Hyperlipidemia Other Unspec Office Visit 08/12/2012 10:45a [facility] Ankur S. 333.1 Tremor Essential Services Of Shani Velásquez M.D. & Other Forms Plan of Treatment Future Appointment(s):07/26/2018 1:15 pm - Jorge Luis Fischer M.D., [facility], FASOH at [facility] Of [facility]07/19/2018 - Eulalio Pennington, MDS46.112D Strain of muscle, fascia and tendon of long head of biceps,New Therapy:Physical TherapyFollow up:Follow up: As [id number] Bursitis of left shoulder
--- OUTSIDE RECORDS SUMMARY | 2018-07-28 14:24 | XMS REPORT | Continuity of Care Document ---
:1930 External Reference #:[id number] Author Name Viktor Nanda Care Team Providers Name Role Phone Maria Ines Lopez MD Primary Care Physician Unavailable Payers Date Identification Numbers Payment Provider Subscriber Policy Number: [id number] Medicare Caron Khalil PayID: [id number] [address] [facility] [address] Effective: 1996 Policy Number: [id number] Medicare Caron Khalil Expires: 2018 PayID: [id number] [address] [place] [address] Policy Number: [id number] [employer] Caron Khalil Group Number: [id number] [id number] PayID: [id number] [place] [address] Expires: 2017 Policy Number: [id number] [employer] Caron Khalil Group Number: [id number] [facility] [id number] PayID: [id number] [place] [address] Advance Directives Description No Information Available Problems [...] in situ Jorge Luis Fischer M.D., Active DEISY, CRESENCIO Onset: 06/03/2015 Paroxysmal ventricular Jorge Luis Fischer M.D., Active tachycardia DEISY, CRESENCIO Onset: 06/19/2016 Heart valve replacement Jorge Luis Fischer M.D., Active DEISY, CRESENCIO Onset: 04/16/2017 Bilateral carpal tunnel syndrome Dillon Willis MD Active Onset: 04/16/2017 Acquired trigger finger Dillon Willis MD Active Onset: 05/18/2017 Mitral valve disorder Jorge Luis Fischer M.D., Active CRESENCIO OLIVAS Family History Date Family Member(s) Observation Comments General Hypertension father and mother General OR Brother 1 age 89 General Cancer Social History Type Date Description Comments Sex Unknown Marital Status Lives With Alone Occupation Retired Work Status Not Currently 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 She states she does exercise on a regular basis being busy, but does not do formal walking. ETOH Use Denies alcohol use Tobacco Use Start: Unknown Patient has never smoked Recreational Drug Use Never Used Drugs Smoking Status Reviewed: 07/26/18 Patient has never smoked Exercise Type/Frequency Does [...] 2012 s by mouth Bjorn twice a Fischer, day M.Romelia, [facility], CRESENCIO Atorvastatin / Active Tablets 40mg 90tab 1 po qd Unknown Calcium 0000 s Ipratropium / Active Solution 0.03% 30ml instill 1 Unknown [place] 0000 sprays in each nostril twice a [...] - tablet john Vera, 05/04/ needed DO [facility] 2018 for swelling of the feet Metoprolol 02/21/ Hx Tablets ER 25mg 30tab 1/2 po qd Sky Succinate ER 2012 - 24HR s Bret, 04/12/ Js, 2012 [facility], [facility] Sertraline HCL 03/15/ Hx Tablets 25mg 30tab 1 po qd Marita Pate 2011 - s Perla 04/12/ Js 2012 Pantoprazole / Hx Tablets DR 20mg [...] Available Vital Signs Date Vital Result Comment 07/26/2018 12:53pm Height 59 inches 4'11" Weight 110.00 lb with shoes Heart Rate 78 /min BP Systolic Sitting 134 mmHg lue reg cuff BP Diastolic Sitting 70 mmHg lue reg cuff BP Systolic Standing 130 mmHg lue reg cuff BP Diastolic Standing 70 mmHg lue reg cuff Respiratory Rate 14 /min BMI (Body Mass Index) 22.2 kg/m2 Ejection Fraction 55-60% echo. 07/18/18 07/19/2018 1:03pm Height 59 inches 4'11" Weight [...] H/L Range Note Urine Culture And 05/15/2018 [facility] Urine SEE RESULT 1 , [address] [place] [address] [phone] Poc Urinalysis 05/15/2018 [facility] Poc Glucose, Negative Negative [address] [place] [address] [phone] Poc Bilirubin, Urine Negative Negative Poc Ketone, Urine Trace Abnormal Negative Poc Specific [place], Urine 1.010 N 1.010-1.030 Poc Blood, Urine 1+ Abnormal Negative Poc pH, Urine 5.5 N 5-9 Poc Protein, Urine Negative Negative Poc Urobilinogen, Urine 0.2 Negative Poc Nitrite, Urine Negative Negative Poc Leukocytes, Urine 1+ Abnormal Negative Poc Color, Urine Yellow Poc Clarity, Urine Clear 3 Laboratory test 06/06/2013 [facility] Erythrocyte Sed 20 mm/Hr 0-[address] [place] [address] [phone] Basic Metabolic 06/06/2013 [facility] Sodium 136 mmol/L 133- [address] [place] [address] [phone] Potassium 4.0 mmol/L 3.5-5.0 Chloride 100 mmol/L Low 101-111 Co2 Carbon Dioxide 29.0 mmol/L 22-32 Anion Gap 7.0 mmol/L 2-11 Glucose 81 mg/dL 70-100 Blood Urea Nitrogen 12 mg/dL 6-24 Creatinine 0.70 mg/dL 0.50-1.40 BUN/Creatinine Ratio 17.1 8-20 Calcium 9.1 mg/dL 8.1-9.9 Egfr Non- 80.1 >60 Egfr 103.0 >60 4 Lipid Profile 06/06/2013 [facility] Triglycerides 364 mg/dL High 40-200 (Trig/Chol/HDL) [address] [place] [address] [phone] Cholesterol 190 mg/dL Less than 200 HDL Cholesterol 40 mg/dL 40-60 5 Cholesterol/HDL Ratio 4.8 Average High 1-4.44 LDL Cholesterol 77.2 Less Than 100 6 Liver Function 06/06/2013 [facility] Total Protein 6.7 g/dL 6.2-8.[address] [place] [address] [phone] Albumin 4.0 g/dL 3.2-5.2 Globulin 2.7 g/dL 2-4 Albumin/Globulin Ratio 1.5 1-3 Total Bilirubin 0.7 mg/dL 0.4-1.5 Direct Bilirubin 0.1 mg/dL 0.1-0.5 Indirect Bilirubin 0.6 mg/dL 0.3-1.0 Alkaline Phosphatase 60 U/L 30-110 Alt 30 U/L 14-54 Ast 28 U/L 12-42 Laboratory test 06/06/2013 [facility] Hemoglobin A1c 6.1 % High Less than [address] [place] [address] [phone] Free T4 0.67 ng/mL 0.61-1.24 TSH (Thyroid Stimulating Horm) 1.81 miu/mL 0.34-5.60 CRP High Sensitivity 1.2 mg/L 8 CBC Auto Diff 06/06/2013 [facility] White Blood 5.6 10^3/uL 4.8-10.8 [place] [address] [phone] Red Blood Count 4.91 10^6/uL 4.0-5.4 Hemoglobin [...] 0-2 Nucleated Red Blood Cells % 0.2 Basic Metabolic 02/20/2013 [facility] Sodium 131 mmol/L Low 133-[address] [place] [address] [phone] Potassium 4.0 mmol/L 3.5-5.0 Chloride 95 mmol/L Low 101-111 Co2 Carbon Dioxide 30.0 mmol/L 22-32 Anion Gap 6.0 mmol/L 2-11 Glucose 138 mg/dL High 70-100 Blood Urea Nitrogen 11 mg/dL 6-24 Creatinine 0.70 mg/dL 0.50-1.40 BUN/Creatinine Ratio 15.7 8-20 Calcium 9.3 mg/dL 8.1-9.9 Egfr Non- 80.3 >60 Egfr 103.3 >60 9 Laboratory 02/14/2013 [facility] Activated 30.0 22.18-37.18 test finding [address] [place] [address] Thrombo Time [phone] Inr/Protime 02/14/2013 [facility] Inr 0.94 0.87-0.[address] [place] [address] [phone] Basic 02/14/2013 [facility] Sodium 124 mmol/L Low 133-[address] [place] [address] [phone] Potassium 4.1 mmol/L 3.5-5.0 Chloride 90 mmol/L Low 101-111 Co2 Carbon Dioxide 27.0 mmol/L 22-32 Anion Gap 7.0 mmol/L 2-11 Glucose 141 mg/dL High 70-100 Blood Urea Nitrogen 8 mg/dL 6-24 Creatinine 1.00 mg/dL 0.50-1.40 BUN/Creatinine Ratio 8.0 8-20 Calcium 9.1 mg/dL 8.1-9.9 Egfr Non- 53.2 >60 Egfr 68.4 >60 10 CBC No Diff 02/14/2013 [facility] White Blood 6.2 10^3/uL 4.8 -10.[address] Count [place], [place] [id number] [phone] Red Blood Count 4.58 10^6/uL 4.0-5.4 Hemoglobin 13.7 g/dL 12.0-16.0 Hematocrit 40 % 35-47 Mean Corpuscular Volume 87 fL 80-97 Mean Corpuscular Hemoglobin 30 pg 27-31 Mean Corpuscular HGB Conc 34 g/dL 31-36 Red Cell Distribution Width 14 % 10.5-15 Platelet Count 200 10^3/uL 150-450 Mean Platelet Volume 9 um3 7.4-10.4 1 [id number] 2 SEE RESULT BELOW Name: CARON KHALIL : [address]: Tyrone Matthew MD Acct: [id number] Unit: [id number] AGE: 87 Location: [facility] Re05/15/18 SEX: F Status: DEP ER SPEC: [id number] JORGE: 05/15/18-1519 [facility] DR: Ankur Bustamante MD REQ: [id number] RECD: 05/16/18-1201 STATUS: REYNALDO STEINER DR: Maria Ines Matthew MD _ SOURCE: URINE SPDESC: ORDERED: Urine Culture COMMENTS: [id number] Procedure Result Reported Site Urine Culture Final 05/17/18- 1247 ML No growth of clinically significant organisms * ML - Main Lab . END OF REPORT DEPARTMENT OF PATHOLOGY, [address] [place] [address] Liam Freeman M.D. Director [facility] # [id number] 3 Fudge Candy Maker: [id number] 4 Because ethnic data is not always readily [...] 15-29 5 Kidney failure <15 (or dialysis) 5 HDL Interpretation: Undesirable: High Risk: Less than 40 mg/dL Desirable: Low Risk: Greater than 60 mg/dL 6 LDL Interpretation: Low Risk Optimal Level: LDL Less than 100 mg/dL Near or Above Optimal: LDL 100-129 mg/dL Borderline High Risk: LDL 130-159 mg/dL High Risk: LDL 160-189 mg/dL Very High Risk: LDL Greater than 189 mg/dL 7 Therapeutic target for the treatment of diabetes Mellitus patients is <7% HBA1C, and in selective patients <6.0%.Please refer to [place] [employer] Diabetic care guidelines for further information. 8 Less Than 1.0......Low Risk of Cardiovascular Disease 1.0-3.0............Medium Risk (<2 Fold Increase) Greater Than 3.0...High Risk (Approximately 2-Fold Increase) 9 Because ethnic data is not always [...] (or dialysis) Procedures Date Code Description Status 07/26/2018 99049 EKG Tracing & Interpretation Completed 07/18/2018 13002 ECHO Transthoracic, Real-Time 2D With Doppler And Completed Color Flow 07/18/2018 57846 ECHO Transthoracic, Real-Time 2D With Doppler And Completed Color Flow 04/12/2018 26370 Inject/Drain Joint/Bursa Major W/O US Completed 04/04/2018 03904 Pace Maker Eval W/Iterative Adjment Dual Lead Completed 04/04/2018 99958 Pace Maker Eval W/Iterative Adjment Dual Lead Completed 10/13/2017 66873 Pace Maker Eval W/Iterative Adjment Dual Lead Completed 10/13/2017 48610 Pace Maker Eval W/Iterative Adjment Dual Lead Completed 06/29/2017 46240 Echocardiography, Transesophageal, Real Time W/Image Completed 2D W/W/O M-M 06/29/2017 65163 Pulse Wave/Continuous-Interp.RPT Completed 06/29/2017 79625 Color Flow Doppler/Interp & Reprt Completed 06/29/2017 74628 Moderate Sedation Services; Same Phys Intl 15 Mins; PT Completed >=5 Years 05/27/2017 34333 Carpal Tunnel Release Completed 05/27/2017 25556 Carpal Tunnel Release Completed 05/18/2017 57811 EKG Tracing & Interpretation Completed 05/17/2017 78668 Stress Test Completed 05/17/2017 73874 Myocardial Perfusion Imaging Tomographic (Spect) Completed Multiple Studies 05/04/2017 73043 ECHO Transthoracic, Real-Time 2D With Doppler And Completed Color Flow 05/04/2017 94087 ECHO Transthoracic, Real-Time 2D With Doppler And Completed Color Flow 04/20/2017 93882 Pace Maker Eval W/Iterative Adjment Dual Lead Completed 04/20/2017 40335 Pace Maker Eval W/Iterative Adjment Dual Lead Completed 04/16/2017 09645 Inject Tendon Sheath Or Ligament Aponeurosis Eg Completed Plantar Fascia 10/22/2016 [id number] Diabetic Retinal Eye Exam Completed 10/14/2016 [id number] Diabetic Retinal Eye Exam Completed 10/01/2016 31753 Pace Maker Eval W/Iterative Adjment Dual Lead Completed 08/28/2016 [id number] Diabetic Retinal Eye Exam Completed 06/19/2016 73822 EKG Tracing & Interpretation Completed 04/14/2016 50248 Pace Maker Eval W/Iterative Adjment Dual Lead Completed 10/09/2015 46772 Pace Maker Eval W/Iterative Adjment Dual Lead Completed 05/13/2015 06253 Myocardial Perfusion Imaging Tomographic (Spect) Completed Multiple Studies 05/13/2015 91785 Stress Test Completed 05/06/2015 81741 ECHO Transthoracic, Real-Time 2D With Doppler And Completed Color Flow 04/23/2015 17610 Pace Maker Eval W/Iterative Adjment Dual Lead Completed 11/19/2014 62335 EKG Tracing & Interpretation Completed 10/29/2014 63993 ECHO Transthoracic, Real-Time 2D With Doppler And Completed Color Flow 10/22/2014 78820 Pace Maker Eval W/Iterative Adjment Dual Lead Completed 05/02/2014 79530 Pace Maker Eval W/Iterative Adjment Dual Lead Completed 10/24/2013 07427 Pace Maker Eval W/Iterative Adjment Dual Lead Completed 10/23/2013 39401 ECHO Transthoracic, Real-Time 2D With Doppler And Completed Color Flow 05/11/2013 32907 Pace Maker Eval W/Iterative Adjment Dual Lead Completed 04/13/2013 76170 Pace Maker Eval W/Iterative Adjment Dual Lead Completed 04/13/2013 28843 EKG Tracing & Interpretation Completed 02/17/2013 31301 Cath PLMT&NJX L Ventriculog Img S&I Completed 01/25/2013 67054 ECHO Transthoracic, Real-Time 2D With Doppler And Completed Color Flow 01/24/2013 75845 EKG Tracing & Interpretation Completed Encounters Type Date Location Provider Dx Diagnosis Office Visit 07/19/2018 [facility] Eulalio Bernal S46.112D Strain of 1:00p Services Of C.M.A. MD maría [place]/fasc/tend long head of biceps, left arm, subs M75.52 Bursitis of left shoulder Office Visit 04/12/2018 Orthopedic uElalio Bernal S46.112D Strain of 11:00a Services Of MD maría [place]/fasc/tend long C.M.A. head of biceps, left arm, subs M75.52 Bursitis of left shoulder Office Visit 02/28/2018 Orthopedic Eulalio Bernal S46.102A Unsp injury of 2:15p Services Of MD Aditi musc/fasc/tend long C.M.A. 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 upper limbs M65.331 Trigger finger, right middle finger Office Visit 06/19/2016 10:00a Cardiology Jorge Luis Milan Z95.2 Presence of Services Of [facility] AT Js Fischer, prosthetic heart Miko FAC, FASNC valve I25.810 Atherosclerosis of CABG w/o angina pectoris I47.2 Ventricular tachycardia Office Visit 06/03/2015 9:45a [facility] Jorge Luis Milan I47.2 Ventricular Of Shani Fischer M.D., tachycardia FAC, FASAR Office Visit 11/19/2014 10:45a [facility] Jorge Luis Milan 424.1 Aortic Valve Of Shani Fischer M.D., Disorder FAC, FASNC Office Visit 11/17/2013 10:30a [facility] Jorge Luis Milan 424.1 Aortic Valve Of Shani Fischer M.D., Disorder FACC, FASNC V45.01 Cardiac Pacemaker In Situ Postsurgical Office Visit 06/26/2013 10:15a [facility] Nurse Visit 424.1 Aortic Valve Of [facility] IC Disorder Office Visit 05/11/2013 3:00p [facility] Nurse Visit 424.1 Aortic Valve Of [facility] IC Disorder Office Visit 04/13/2013 9:00a [facility] Jorge Luis Milan 424.1 Aortic Valve Of Shani Fischer M.D., Disorder FACC, FASNC 414.9 Ischemic Heart Disease Chronic Unspec Office Visit 02/21/2013 2:45p [facility] Sky [place], 424.1 Aortic Valve Of [facility] [place] [facility] [place], FACC, Disorder FSCAI 414.9 Ischemic Heart Disease Chronic Unspec Office Visit 01/30/2013 12:45p [facility] Jorge Luis Milan 424.1 Aortic Valve Of Shani Fischer M.D., Disorder FACC, FASNC Office Visit 01/24/2013 11:00a [facility] [place], 785.2 Murmur Cardiac Of [employer] Js, MILC, Undiagnosed FSCAI 272.4 Hyperlipidemia Other Unspec Office Visit 08/12/2012 10:45a [facility] Ankur S. 333.1 Tremor Essential Services Of [facility] Js Velásquez & Other Forms Plan of Treatment 07/26/2018 - Jorge Luis Fischer M.D., FACC, DHREPH41.0 Nonrheumatic mitral (valve ) insufficiencyNew Orders:Echocardiogram, Ordered: 07/26/18Comments:As discussed , your heart is doing well. Please walk as able.Follow up:one year after echo
--- OUTSIDE RECORDS SUMMARY | 2018-07-28 14:25 | XMS REPORT | Continuity of Care Document ---
:1930 External Reference #:[id number] Author Name STEVE Casiano Address [address] [facility] [place] [address] Care Team Providers Name Role Phone Maria Ines Lopez M.D. Care Team Information Success Coach Unavailable Maria Ines Lopez M.D. Primary Care Physician Unavailable Payers Date Identification Numbers Payment Provider Subscriber Effective: 1996 Policy Number: [id number] Medicare [place] PayID: [id number] [address] [place] [address] Policy Number: [id number] [facility] Group Number: [id number] [address] PayID: [id number] [place] [address] Advance Directives Description No Information Available Problems Date Description Provider Status Onset: 01/12/2017 [...] M.D. Active Family History Date Family Member(s) Observation Comments Father Diabetes Mellitus, II Mother Congestive Heart Failure (CHF) Mother [place] Siblings 12 Social History Type Date Description Comments Sex Unknown Marital Status Legal Status: Lives With Alone Diet Healthy, Well Balanced Occupation Retired Tobacco Use Start: Unknown Never Smoked Cigarettes ETOH Use Denies alcohol use Tobacco Use Start: Unknown Patient has never smoked Smoking Status Reviewed: 05/28/18 Patient has never smoked Exercise Type/Frequency Walks daily Allergies, Adverse Reactions, Alerts Date Description Reaction Status Severity Comments 01/13/2017 Augmentin Active 01/13/2017 Penicillin Active 01/13/2017 Levaquin Active 01/13/2017 Sulfa Active 01/13/2017 Zithromax Active 01/13/2017 Latanoprost Active 01/13/2017 Cephalosporins Active 01/13/2017 Macrolides and Ketolides Active 08/18/2017 Codeine Active gi upset 08/18/2017 Shellfish-derived Products Active itchy 09/30/2017 Cipro Active 01/25/2018 Trimethoprim Active 01/25/2018 Clavulanic Acid Active 01/13/2017 NKDA Inactive Medications Medication Date Status Form Strength Qnty SIG Indications Ordering Provider Nitrofurantoin 07/14 Active Capsules 100mg 10cap 1 by mouth N39.0 Pily Macrocrystal s twice a Augustin, day 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 s Tablet By Ronald Mouth [employer] VEHIC[employer] ESCORT DRIVER Every Day Betamethasone Active Cream 0.05% apply Unknown Dipropionate /0000 sparingly two times a day to three times a day to affected area as needed Xyzal Allergy Active Tablets 5mg 1 by mouth Unknown 24HR /0000 every day Metoprolol Active Tablets 25mg take 2 Unknown Tartrate / tablet by mouth twice a day Ipratropium Active Solution 0.03% 2 sprays Unknown per nostril at bedtime to start, can use up to three times a day as needed Aspir-[address] 81mg 1 by mouth Unknown /0000 every day Nasonex Active Suspension 50mcg/Act 51gm 2 sprays in each [place], nostril M.D. daily Travatan Z Active Solution 0.004% 1 drop Unknown /0000 both eyes every night at bedtime Timolol Maleate Active Solution 0.5% instill Unknown one drop in each eye two times daily Flovent HFA Active Aerosol 44mcg/Act 3 puff Unknown twice a day Ventolin HFA Active Aerosol 108(90Bas 2 puffs Unknown e) every 4 mcg/Act hours as needed Multivitamin Active Tablets 1 by mouth Unknown every day Calcium 600 Active Tablets 600mg 1po every Unknown / other day Preservision Active Capsules 1 po bid Unknown Areds Vitamin D Active Tablets 2000Unit once Unknown /0000 daily. Atorvastatin Active Tablets 40mg 90tab Take 1 Kait Eli Calcium s Tablet By Schwartz, Mouth [employer] ESC[employer] DRIVER Every Day Alprazolam Active Tablets 0.25mg 90tab 1 tab q8 Marjan C. / s hours as Ronald, needed mdd [employer] DRIVER 3 mdd 3 Levoxyl Active Tablets 25mcg 90tab Take 1 Maria Ines s Tablet By John, Mouth M.D. 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 Maximum Strength s every day Casimiro Cardenas [employer] VEH[employer] ESCORT DRIVER 11/02 Fluoxetine HCL 06/10 Hx Capsules 10mg 30cap 1 by mouth Maria Ines s every day Casimiro Lopez M.D. 06/[address] 40mg 1 by mouth Unknown Sodium /0000 every day - 07/14 Cetirizine HCL Hx Tablets 10mg 1 by mouth Unknown /0000 every day - 08/17 Immunizations CPT Code Status Date Vaccine Lot # [id number] Given 02/15/2018 High-Dose, Influenza Virus Vacccine-fluzone 65 and [id number] older 79082 Given 01/28/2017 High-Dose, Influenza Virus Vacccine-fluzone 65 and [id number] older 44134 Given 01/27/2016 High-Dose, Influenza Virus Vacccine-fluzone 65 and older 90610 Given 02/11/2015 Pneumococcal Immunization 93033 Given 01/28/2015 High-Dose, Influenza Virus Vacccine-fluzone 65 and older 17476 Given 05/24/2014 Zostivax 71686 Given 02/09/2014 Influenza Vac, Quadriv[place], [place] [address] Given 02/29/2012 Tdap Tetanus, W Pertussis 55481 Given 02/06/2011 High-Dose, Influenza Virus Vacccine-fluzone 65 and older 84435 Given 07/19/2007 Tetanus And Diptheria Adult Preservative Free >7Yrs 09378 Given 05/03/2004 Pneumococcal Immunization Vital Signs Date Vital Result Comment 07/14/2018 9:35am BP Systolic 120 mmHg BP Diastolic 76 mmHg Heart Rate 90 /min Body Temperature 97.2 F Respiratory Rate 20 /min Weight 109.00 lb 05/28/2018 11:35am BP Systolic 114 mmHg BP Diastolic 78 mmHg Heart Rate 90 /min Body Temperature 97.5 F Height 59.5 inches 4'11.50" Weight 109.00 lb BMI (Body Mass Index) 21.6 kg/m2 04/20/2018 11:09am BP Systolic 140 mmHg BP Diastolic 80 mmHg Heart Rate 88 /min Body Temperature 97.8 F Respiratory Rate 16 /min Height 59.5 inches 4'11.50" Weight 109.00 lb BMI (Body Mass Index) 21.6 kg/m2 02/26/2018 11:54am BP Systolic 118 mmHg BP Diastolic 78 mmHg Heart Rate 80 /min Body Temperature 97.3 F Respiratory Rate 16 /min Height 59.5 inches 4'11.50" Weight 110.12 lb BMI (Body Mass Index) 21.9 kg/m2 02/15/2018 9:30am BP Systolic 120 mmHg BP Diastolic 78 mmHg Heart Rate 84 /min Body Temperature 98.2 F Respiratory Rate 16 /min Height 59.5 inches 4'11.50" Weight 111.00 lb BMI (Body Mass Index) 22.0 kg/m2 01/25/2018 12:57pm BP Systolic 120 mmHg BP Diastolic 88 mmHg Heart Rate 86 /min Body Temperature 97.9 F Respiratory Rate 16 /min Height 59.5 inches 4'11.50" Weight 112.00 lb BMI (Body Mass Index) 22.2 kg/m2 01/17/2018 11:45am BP Systolic 140 mmHg BP Diastolic 80 mmHg Heart Rate 84 /min Body Temperature 97.7 F Height 59.5 inches 4'11.50" Weight 112.00 lb BMI (Body Mass Index) 22.2 kg/m2 12/04/2017 11:25am BP Systolic 106 mmHg BP Diastolic 60 mmHg Heart Rate 90 /min Body Temperature 97.5 F Respiratory Rate 16 /min Height 59.5 inches 4'11.50" Weight 109.50 lb BMI (Body Mass Index) 21.7 kg/m2 09/30/2017 10:57am BP Systolic 116 mmHg BP Diastolic 72 mmHg Heart Rate 64 /min Body Temperature 97.5 F Respiratory Rate 16 /min Height 59.5 inches 4'11.50" Weight 110.00 lb BMI (Body Mass Index) 21.8 kg/m2 08/18/2017 10:00am BP Systolic 118 mmHg BP Diastolic 62 mmHg Heart Rate 80 /min Body Temperature 97.9 F Respiratory Rate 16 /min Height 59.5 inches 4'11.50" Weight 109.00 lb BMI (Body Mass Index) 21.6 kg/m2 05/26/2017 8:39am BP Systolic 130 mmHg BP Diastolic 76 mmHg Heart Rate 76 /min Body Temperature 97.9 F Respiratory Rate 16 /min Height 49.5 inches 4'1.50" Weight 108.00 lb BMI (Body Mass Index) 31.0 kg/m2 04/14/2017 8:56am BP Systolic 120 mmHg BP Diastolic 70 mmHg Heart Rate 64 /min Body Temperature 98.0 F Respiratory Rate 18 /min Height 49.5 inches 4'1.50" Weight 111.00 lb BMI (Body Mass Index) 31.8 kg/m2 01/19/2017 9:16am BP Systolic 118 mmHg BP Diastolic 60 mmHg Heart Rate 72 /min Body Temperature 97.7 F Height 49.5 inches 4'1.50" Weight 106.50 lb BMI (Body Mass Index) 30.6 kg/m2 01/13/2017 9:36am BP Systolic 120 mmHg BP Diastolic 70 mmHg Heart Rate 68 /min Body Temperature 98.0 F Respiratory Rate 18 /min Height 49.5 inches 4'1.50" Weight 107.00 lb BMI (Body Mass Index) 30.7 kg/m2 Results Test Date Facility Test Result H/L Range Note Urine Culture And 05/30/2018 [facility] Urine Culture SEE RESULT 1 Sensitivities BELOW Ua - Micro (a) 05/28/2018 [facility] Appearance clear (607)- - Color yellow Glucose, Urine (a/CMC/CTX) neg Bilirubin neg Ketones neg SP Grav 1.010 Blood neg PH 7.0 Protein neg Urobil 0.2 Nitrite neg Leukocytes (a/CMC/Centrex) trace # Hyaline - /Lpf Granular - /Lpf WBC (a,Centrex) 2-3 # RBC 0-1 # Mucus (a/CBC/Centrex) - /Lpf Epith occ /Lpf # Bacteria 1+ /Hpf # Amorphous (a/CMC/Centrex) - /Lpf Crystals, Fluid (a/CMC/CTX) - Z#Comments - Urine Culture And 05/15/2018 [facility] Urine Culture SEE RESULT BELOW 2, 3 Sensitivities Poc Urinalysis 05/15/2018 [facility] Poc Glucose, Negative Negative Urine Poc Bilirubin, Urine Negative Negative Poc Ketone, Urine Trace Abnormal Negative Poc Specific [place], Urine 1.010 N 1.010-1.030 Poc Blood, Urine 1+ Abnormal Negative Poc pH, Urine 5.5 N 5-9 Poc Protein, Urine Negative Negative Poc Urobilinogen, Urine 0.2 Negative Poc Nitrite, Urine Negative Negative Poc Leukocytes, Urine 1+ Abnormal Negative Poc Color, Urine Yellow Poc Clarity, Urine Clear 4 Laboratory test 02/15/2018 [facility] Hemoglobin A1c 5.8 % High 4.1- 5.7 finding (607)- - (a) Laboratory test 02/15/2018 [facility] ([facility]) LDL, Direct 92 mg/dL 0- 130 finding Comprehensive 02/15/2018 [facility] (a) Sodium 137 mEq/L 134-149 Metabolic Prof Potassium 4.9 mEq/L 3.6-5.5 Chloride 92 mEq/L Low 94-112 5 Carbon Dioxide 24 mEq/L 21-32 Glucose 96 [...] U/L 5-34 Total Bilirubin 0.6 mg/dL 0.2-1.3 6 GFR Non- >60 ml/min/1.73m^ >=60 GFR >60 ml/min/1.73m^ >=60 Lipid Profile 02/15/2018 [facility] (a) Cholesterol 179 mg/dL 120- 200 Triglycerides 319 mg/dL High 30-200 HDL Cholesterol 42 mg/dL 30-85 LDL (Calculated) 73 CALC 0-129 VLDL Cholesterol 64 mg/dL High 0-50 HDL Risk Factor 4.3 CALC 0.0-4.4 CBC Electronic Fma 02/15/2018 [facility] (a) WBC 7.2 x10^3/UL 4.0- 10.0 RBC 4.59 x10^6/UL 3.93-6.00 HGB 13.6 g/dL 12.0-17.0 HCT 40 % 35-50 MCV 87.4 fL 80.0-95.0 MCH 29.6 pg 25.6-32.2 MCHC 33.9 g/dL 32.2-36.0 RDW-CV 13.2 % 11.6-14.4 PLT 181 x10^3/UL 163-400 MPV 10.4 fL 9.4-12.4 Dony# 3.82 x10^3/UL 1.56-6.13 Lymph# 2.47 x10^3/UL 1.18-3.74 Johnston# 0.61 x10^3/UL 0.24-0.82 Eos # 0.2 x10^3/UL 0.0-0.5 Baso # 0.04 x10^3/UL 0.01-0.08 Dony% 53.4 % 34.0-70.0 Lymph % 34.5 % 20.0-52.0 Johnston% 8.5 % 5.0-12.0 Eos% 2.9 % 0.7-7.0 Baso% 0.6 % 0.1-1.2 Laboratory test finding 02/15/2018 [facility] ([facility]) TSH 2.39 mIU/L 0.50-6.00 Free T4 0.99 ng/dL 0.75-1.54 Ua - Non Micro (Fma) 12/04/2017 [facility] Appearance CLEAR (607)- - Color YELLOW Glucose, Urine (Fma/CMC/CTX) NEG Bilirubin NEG Ketones NEG SP Grav <=1.005 Blood NEG PH 5.5 Protein NEG Urobil 0.2 Nitrite NEG Leukocytes (Fma/CMC/Centrex) NEG Poc Urinalysis 11/27/2017 [facility] Poc Glucose, Urine Negative Negative Poc Bilirubin, Urine Negative Negative Poc Ketone, Urine Negative Negative Poc Specific [place], Urine 1.010 N 1.010-1.030 Poc Blood, Urine 3+ Abnormal Negative Poc pH, Urine 7.0 N 5-9 Poc Protein, Urine Trace Abnormal Negative Poc Urobilinogen, Urine 0.2 Negative Poc Nitrite, Urine Negative Negative Poc Leukocytes, Urine 3+ Abnormal Negative Poc Color, Urine Sonal Poc Clarity, Urine Cloudy 7 Urine Culture And 11/27/2017 [facility] Urine Culture SEE RESULT 8 Sensitivities BELOW Ua - Non Micro (Fma) 10/28/2017 [facility] Appearance CLEAR (607)- - Color YELLOW Glucose, Urine (Fma/CMC/CTX) NEGATIVE Bilirubin NEGATIVE Ketones NEGATIVE SP Grav <=1.005 Blood NEGATIVE PH 5.5 Protein NEGATIVE Urobil 0.2 Nitrite NEGATIVE Leukocytes (a/[facility]) NEGATIVE Laboratory test 10/28/2017 [facility] Hemoglobin A1c 5.8 % High 4.1- 5.7 finding (607)- - ([facility]) Laboratory test 10/28/2017 [facility] ([facility]) TSH 3.08 0.50-6.00 finding mIU/L Free T4 0.99 ng/dL 0.75-1.54 Lipid Profile 10/28/2017 [facility] ([facility]) Cholesterol 132 mg/dL 120- 200 Triglycerides 162 mg/dL 30-200 HDL Cholesterol 40 mg/dL 30-85 LDL (Calculated) 60 CALC 0-129 VLDL Cholesterol 32 mg/dL 0-50 HDL Risk Factor 3.3 CALC 0.0-4.4 Comprehensive Metabolic 10/28/2017 [facility] ([facility]) Sodium 130 mEq/L Low 134-149 Prof Potassium 4.0 mEq/L 3.6-5.5 Chloride 91 mEq/L Low 94-112 9 Carbon Dioxide 30 mEq/L 21-32 Glucose 81 [...] >60 ml/min/1.73m^ >=60 GFR >60 ml/min/1.73m^ >=60 CBC Auto Diff 06/02/2017 [facility] White Blood Count 8.0 10^3/uL N 3.5-10.8 Red Blood Count 4.63 10^6/uL N 4.0-5.4 Hemoglobin 13.5 g/dL N 12.0-16.0 Hematocrit 40 % N 35-47 Mean Corpuscular Volume 87 fL N 80-97 Mean Corpuscular Hemoglobin 29 pg N 27-31 Mean Corpuscular HGB Conc 34 g/dL N 31-36 Red Cell Distribution Width 15 % N 10.5-15 Platelet Count 172 10^3/uL N 150-450 Mean Platelet Volume 8 um3 N 7.4-10.4 Abs Neutrophils 5.0 10^3/uL N 1.5-7.7 Abs Lymphocytes 2.3 10^3/uL N 1.0-4.8 Abs Monocytes 0.6 10^3/uL N 0-0.8 Abs Eosinophils 0.1 10^3/uL N 0-0.6 Abs Basophils 0 10^3/uL N 0-0.2 Abs Nucleated RBC 0 10^3/uL Granulocyte % 62.2 % N 38-83 Lymphocyte % 28.5 % N 25-47 Monocyte % 7.6 % N 1-9 Eosinophil % 1.3 % N 0-6 Basophil % 0.4 % N 0-2 Nucleated Red Blood Cells % 0 Comp Metabolic Panel 06/02/2017 [facility] Sodium 134 mmol/L N 133-145 Potassium 4.0 mmol/L N 3.5-5.0 Chloride 97 mmol/L Low 101-111 Co2 Carbon Dioxide 30 mmol/L N 22-32 Anion Gap 7 mmol/L N 2-11 Glucose 102 mg/dL High 70-100 Blood Urea Nitrogen 9 mg/dL N 6-24 Creatinine 0.62 mg/dL N 0.51-0.95 BUN/Creatinine Ratio 14.5 N 8-20 Calcium 9.5 mg/dL N 8.6-10.3 Total Protein 7.7 g/dL N 6.4-8.9 Albumin 4.0 g/dL N 3.2-5.2 Globulin 3.7 g/dL N 2-4 Albumin/Globulin Ratio 1.1 N 1-3 Total Bilirubin 0.70 mg/dL N 0.2-1.0 Alkaline Phosphatase 57 U/L N 34-104 Alt 20 U/L N 7-52 Ast 19 U/L N 13-39 Egfr Non- 91.3 >60 Egfr 117.4 >60 10 Laboratory test 06/02/2017 [facility] C Reactive 1.02 mg/L N < 5.00 11 finding Protein Laboratory test 01/28/2017 [facility] ([facility]) TSH 4.37 mIU/L 0.50- 6.00 finding Free T4 0.87 ng/dL 0.75-1.54 Comprehensive Metabolic 01/28/2017 [facility] ([facility]) Sodium 135 mEq/L 134-149 Prof Potassium 4.3 mEq/L 3.6-5.5 Chloride 96 mEq/L [...] GFR >60 ml/min/1.73m^ >=60 Lipid Profile 01/28/2017 [facility] ([facility]) Cholesterol 147 mg/dL 120- 200 Triglycerides 333 mg/dL High 30-200 HDL Cholesterol 35 mg/dL 30-85 LDL (Calculated) 45 CALC 0-129 VLDL Cholesterol 67 mg/dL High 0-50 HDL Risk Factor 4.2 CALC 0.0-4.4 Complete Blood Count 01/28/2017 [facility] (a) WBC 6.3 x10^3/UL 3.6-9.6 RBC 4.84 x10^6/UL 3.90-5.70 HGB 14.1 g/dL 12.1-17.2 HCT 42 % 36-50 MCV 86.0 fL 82.2-97.4 MCH 29.0 pg 27.6-33.3 MCHC 33.9 g/dL 33.0-35.5 RDW 14.8 % High 11.6-13.7 PLT 248 x10^3/UL 150-400 MPV 7.9 fL 7.4-10.4 Gran # 3.7 x10^3/UL 1.5-7.2 Lymph# 2.3 x10^3/UL 0.7-4.9 Johnston# 0.3 x10^3/UL 0.1-0.9 Gran % 57.2 % 42.2-75.2 Lymph % 37.0 % 20.5-51.1 Johnston% 5.8 % 1.7-9.3 Laboratory test finding 01/28/2017 [facility] (a) Vitamin D25 27 Low 30-100 Magnesium, Serum 2.3 mEq/L High 1.2-2.1 Vitamin B-12 627 pg/mL 230-1050 LDL, Direct 61 mg/dL 0-130 Laboratory test 01/28/2017 [facility] Hemoglobin A1c (Fma) 5.7 % 4.1-5.7 finding (607)- - 1 SEE RESULT BELOW Name: CARON KHALIL : [address]: Kait Schwartz NP Acct: [id number] Unit: [id number] AGE: 88 Location: [facility] Re05/30/18 SEX: F Status: REG REF SPEC: [id number] JORGE: 05/30/18-[address]: Kait Schwartz NP REQ: [id number] RECD: 05/30/18 STATUS: COMP _ SOURCE: URINE SPDESC: ORDERED: Urine Culture COMMENTS: [id number] devine top urine vacutainer Urine Source: Random Procedure Result Reported Site Urine Culture Final 06/01/18- 1515 ML No growth of clinically significant organisms * ML - Main Lab . END OF REPORT DEPARTMENT OF PATHOLOGY, [address] [place] [address] Liam Freeman M.D. Director [facility] # [id number] 2 [id number] SEE RESULT BELOW Name: CARON KHALIL : [address]: Tyrone Matthew MD Acct: [id number] Unit: [id number] AGE: 87 Location: [facility] Re05/15/18 SEX: F Status: DEP ER SPEC: [id number] JORGE: 05/15/18-[address] [facility] [address]: Ankur Bustamante MD REQ: [id number] RECD: 05/16/18120 STATUS: REYNALDO STEINER DR: Maria Ines Matthew MD _ SOURCE: URINE SPDESC: ORDERED: Urine Culture COMMENTS: [id number] Procedure Result Reported Site Urine Culture Final 05/17/18- 1247 ML No growth of clinically significant organisms * ML - Main Lab . END OF REPORT DEPARTMENT OF PATHOLOGY, [address] [place] [id number] Liam Freeman M.D. Director [facility] # [id number] 4 Financial Services Sales Representative: [id number] 5 RESULTS VERIFIED BY REPEAT ANALYSIS 6 RAN OUT OF TBIL-RESULT DAVION''D AND CORRECTED 7 Financial Services Sales Representative: [id number] 8 SEE RESULT BELOW Name: CARON KHALIL : [address]: Ankur Bustamante MD Acct: [id number] Unit: [id number] AGE: 87 Location: [facility] Re11/27/17 SEX: F Status: DEP ER SPEC: [id number] JORGE: 11/27/17-[address] [facility] [address]: Arden MOLINA REQ: [id number] RECD: 11/27/17 STATUS: REYNALDO STEINER DR: Maria Ines Lopez MD [facility] _ SOURCE: URINE SPDESC: ORDERED: Urine Culture COMMENTS: [id number] Procedure Result Reported Site Urine Culture Final 11/29/17- 0841 ML Organism 1 KLEBSIELLA ORNITHINOLYTICA [place] Count >100,000 (Many) CFU/ML 1. KLEBSIELLA ORNITHINOLYTICA [...] . END OF REPORT DEPARTMENT OF PATHOLOGY, [address] [place] [address] Liam Freeman M.D. Director [facility] # [id number] 9 RESULTS VERIFIED BY REPEAT ANALYSIS 10 Because ethnic data is not always [...] 15-29 5 Kidney failure <15 (or dialysis) 11 Acute inflammation: >10.00 Procedures Date Code Description Status 01/17/2018 35477 Remove Impact Cerumen Irrigati Completed Encounters Type Date Location Provider Dx Diagnosis Office Visit 05/28/2018 Main Office Kait Schwartz, N39.0 Urinary tract 11:45a [employer]IVER infection, site not specified M54.5 Low back pain M25.551 Pain in right hip M25.552 Pain in left hip Office Visit 04/20/2018 10:40a [facility] Office Maria Ines Lopez M.D. R12 Heartburn R09.82 Postnasal drip Office Visit 02/26/2018 12:10p [facility] Office Maria Ines Lopez, S46.292A Inj muscle MMaryDMary fascia and tendon of prt biceps, left arm, init X50.3xxA Overexertion from repetitive movements, initial encounter Office Visit 02/15/2018 9:40a [facility] Office Maria Ines Lopez, R73.01 Impaired M.D. 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 Office Kait Benitez J01.90 Acute sinusitis, NATHALIA Schwartz unspecified K13.70 Unspecified lesions of oral mucosa Office Visit 01/17/2018 [facility] Durga Resendiz01.90 Acute sinusitis, 11:40a Office MD Jose unspecified H61.22 Impacted cerumen, left ear Office Visit 12/04/2017 11:15a [facility] Office Marjan Ward N39.0 Urinary tract Ronald, [employer]IVER infection, site not specified R19.7 Diarrhea, unspecified Office Visit 09/30/2017 10:30a 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 median nerve, right upper limb Office Visit 01/19/2017 9:10a [facility] Office Maria Ines Lopez, R42 Dizziness and M.D. giddiness I25.10 Athscl heart disease of [place] coronary artery w/o ang pctrs I10 Essential (primary) hypertension F41.9 Anxiety disorder, unspecified Office Visit 01/13/2017 9:40a [facility] Maria Ines Lopez, E03.9 Hypothyroidism, Office M.D. unspecified R73.01 Impaired fasting glucose E78.5 Hyperlipidemia, unspecified I25.10 Athscl heart disease of [place] coronary artery w/o ang pctrs E55.9 Vitamin D deficiency, unspecified M25.571 Pain in right ankle and joints of right foot J45.40 Moderate persistent asthma, uncomplicated M81.0 Age-related osteoporosis w/o current pathological fracture L29.2 Pruritus vulvae Plan of Treatment Future Appointment(s):09/07/2018 10:20 am - Maria Ines Lopez M.D. at [facility] Ghbtmi5907/14/2018 - Pily Ruffin, FNPN39.0 Urinary tract infection, site not specifiedNew Medication:Nitrofurantoin Macrocrystal 100 mg - 1 by mouth twice a day x 5 days//Please Call [phone] when ready, thanksFollow up:Call ROSALIA if condition changes/worsens in any wayR35.0 Frequency of micturitionNew Labs:Ua - Micro (Fma), Ordered: 07/14/18Culture And Sensitivity, Ordered: N39.41 Urge incontinenceAllComments:~B_~U_Medication Management~b_~u_ Patient Understands medications he 's taking? Yes No Are there Barriers to Adherence? Yes No Has the patient been asked about herbal supplements and therapies, and OTC meds? Yes No As always, we strongly encourage a healthy diet and makingphysical activity a part of your every day life. If you have questions about how or where to start, please contact the office.
[2018-07-28 14:43] VITALS: BP 127/89
--- NOTE | 2018-07-28 15:45 | UC ---
Throat Pain/Nasal Evan HPI - HPI Summary HPI Summary: 88-year-old woman comes in with a chief complaint of upper respiratory tract infection symptoms for 2 days. She's had some rhinorrhea mild sore throat and also chest congestion. She also has a cough it's worse when she lays down. The cough does decrease when she is standing up and walking around. No chest pain no shortness of breath no pedal edema. No fevers. - History of Current Complaint Chief Complaint: UCGeneralIllness Stated Complaint: SINUS CONGESTION Time Seen by Provider: 07/28/18 15:22 Pain Intensity: 7 - Allergies/Home Medications Allergies/Adverse Reactions: Allergies Allergy/AdvReac Type Severity Reaction Status Date / Time lactose Allergy Diarrhea Verified 07/28/18 14:43 amoxicillin AdvReac Nausea And Verified 07/28/18 14:43 Vomiting azithromycin [From Zithromax] AdvReac Nausea And Verified 07/28/18 14:43 Vomiting cephalexin AdvReac Nausea And Verified 07/28/18 14:43 Vomiting ciprofloxacin [From Cipro] AdvReac Nausea And Verified 07/28/18 14:43 Vomiting clavulanic acid AdvReac Nausea And Verified 05/15/18 14:43 Vomiting codeine AdvReac Nausea And Verified 07/28/18 14:43 Vomiting latanoprost AdvReac Nausea And Verified 07/28/18 14:43 Vomiting levofloxacin [From Levaquin] AdvReac Nausea And Verified 07/28/18 14:43 Vomiting shellfish derived AdvReac Nausea And Verified 07/28/18 14:43 Vomiting sulfamethoxazole AdvReac Nausea And Verified 07/28/18 14:43 Vomiting trimethoprim AdvReac Nausea And Verified 07/28/18 14:43 Vomiting enviromental Allergy Mild itchy eyes Uncoded 07/28/18 14:43 PMH/Surg Hx/FS Hx/Imm Hx Previously Healthy: Yes Endocrine History: Hypothyroidism Cardiovascular History: Hypertension, Pacemaker/ICD, Congestive Heart Failure, Other - HEART VALVE REPLACEMENT GI/ History: Gastroesophageal Reflux - Surgical History Surgical History: Yes Surgery Procedure, Year, and Place: cardiac surgery done 03/2013, valve replacement. PACEMAKER 2013 [place] - Family History Known Family History: Positive: Cardiac Disease, Other - COLON CA; ALZ; DEMENTIA - Social History Alcohol Use: None Substance Use Type: None Smoking Status (MU): Never Smoked Tobacco - Immunization History Most Recent Influenza Vaccination: 01/2017 Most Recent Tetanus Shot: up to date Most Recent Pneumonia Vaccination: received Review of Systems All Other Systems Reviewed And Are Negative: Yes Constitutional: Positive: Negative Skin: Positive: Negative Eyes: Positive: Negative ENT: Positive: Sore Throat, Nasal Discharge Respiratory: Positive: Cough Cardiovascular: Positive: Negative Gastrointestinal: Positive: Negative Motor: Positive: Negative Neurovascular: Positive: Negative Musculoskeletal: Positive: Negative. Negative: Edema Neurological: Positive: Negative Psychological: Positive: Negative Is Patient Immunocompromised?: No Physical Exam Triage Information Reviewed: Yes Appearance: Well-Appearing, No Pain Distress, Well-Nourished Vital Signs: Initial Vital Signs Temp 97.8 F 07/28/18 14:39 Pulse 80 07/28/18 14:39 Resp 20 07/28/18 14:39 BP 127/89 07/28/18 14:39 Pulse Ox 97 07/28/18 14:39 Vital Signs Reviewed: Yes Eye Exam: Normal Eyes: Positive: Conjunctiva Clear ENT: Positive: Pharyngeal erythema, Nasal congestion, TMs normal Neck exam: Normal Neck: Positive: Supple Respiratory: Positive: Lungs clear, Normal breath sounds, No respiratory distress Cardiovascular: Positive: RRR, Other: - CLICK WITH HEART SOUNDS Musculoskeletal Exam: Normal Musculoskeletal: Positive: Strength Intact, ROM Intact, No Edema, Other: - NO CALF TENDERNESS Neurological Exam: Normal Neurological: Positive: Alert, Muscle Tone Normal Psychological Exam: Normal Psychological: Positive: Normal Response To Family, Age Appropriate Behavior Skin Exam: Normal Throat Pain/Nasal Course/Dx - Course Course Of Treatment: DISCUSSED VIRAL VERSES BACTERIAL INFECTION AND THE ROLE OF ANTIBIOTICS. THE PATIENT WISHES TO BE ON ANTIBIOTICS AT THIS TIME. - Differential Dx/Diagnosis Provider Diagnosis: Upper respiratory infection Discharge - Sign-Out/Discharge Documenting (check all that apply): Patient Departure All imaging exams completed and their final reports reviewed: No Studies - Discharge Plan Condition: Stable Disposition: HOME Prescriptions: Benzonatate CAP* [Tessalon 100 MG CAP*] 100 mg PO TID PRN #20 cap PRN Reason: Cough DOXYcycline CAP(*) [DOXYcycline 100MG CAP(*)] 100 mg PO BID #20 cap Patient Education Materials: Upper Respiratory Infection (ED) Referrals: Maria Ines Lopez MD [Primary Care Provider] - Additional Instructions: FOLLOW UP WITH YOUR DOCTOR IF NOT COMPLETELY IMPROVED. GO TO THE EMERGENCY DEPARTMENT FOR ANY WORSENING OF YOUR CONDITION; CHEST PAIN, SHORTNESS OF BREATH, YOU FEEL ILL OR QUESTIONS OR CONCERNS. - Billing Disposition and Condition Condition: STABLE Disposition: Home
== END 2018-07-28 15:55 | disposition home or self-care (01) ==
LOC: UCEAST 14:18
DX: J06.9 Acute upper respiratory infection, unspecified (principal); I11.0 Hypertensive heart disease with heart failure; I50.9 Heart failure, unspecified; E03.9 Hypothyroidism, unspecified; K21.9 Gastro-esophageal reflux disease without esophagitis; Z95.810 Presence of automatic (implantable) cardiac defibrillator; Z95.2 Presence of prosthetic heart valve; Z88.3 Allergy status to other anti-infective agents; Z88.5 Allergy status to narcotic agent; Z88.2 Allergy status to sulfonamides
CPT/HCPCS: 99212; G0463

== ENCOUNTER 2018-11-06 18:08 | Emergency (ER) | payer MEDICARE, OTHER ==
--- OUTSIDE RECORDS SUMMARY | 2018-11-06 18:12 | XMS REPORT | Continuity of Care Document ---
:1930 External Reference #:[id number] Author Name Denys Humphreys DO, MPH Address [address] [place] [address], [address] [place] [address] Care Team Providers Name Role Phone Lalo Mcmahon M.D. 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 Primary Care Physician Unavailable Payers Date Identification Numbers Payment Provider Subscriber Policy Number: [id number] [employer] [place] PayID: [id number] [address] [place] [address] Policy Number: [id number] [facility] I[facility] PayID: [id number] [address] [place] [address] Family History Date Family Member(s) Observation Comments Father due to Diabetes () Mother due to [place] () Children 1 Siblings 11 Social History Type Date Description Comments Sex Unknown Marital Status Lives With niece Occupation Retired Work Status Not Currently Working ETOH Use Never used alcohol Tobacco Use Start: Unknown Patient has never smoked Recreational Drug Use Denies Drug Use Smoking Status Reviewed: 10/18/18 Patient has never smoked Allergies, Adverse Reactions, Alerts Active Allergies Reaction Severity Comments Date Sulfamethoxazole 10/07/2018 Zithromax 10/07/2018 Levaquin 10/07/2018 Codeine 10/07/2018 Amoxicillin 10/07/2018 Augmentin 10/07/2018 Cipro 10/07/2018 Cephalexin 10/07/2018 Trimethoprim 10/07/2018 Clavulanic Acid 10/07/2018 Latanoprost 10/07/2018 Shellfish-Derived Products 10/07/2018 Inactive Allergies NKDA 10/06/2018 Medications Active Medications SIG Qnty Indications Ordering Date Provider Oxycodone HCL si by mouth 60tabs Denys Humphreys, 10/07/2018 5mg every 12 hours as DAVID FUENTES Tablets directed chronic pain patient Diclofenac Sodium apply four grams 480gm Petr Denys, 10/07/2018 1% to left elbow four DO, MPH Gel times a day Levoxyl 1 by mouth every Unknown 25mcg Tablets morning Multivitamin Adult 1 by mouth daily Unknown Tablets Calcium 600+D 1 by mouth in the Unknown Tablets morning Xanax si by mouth Unknown 0.25mg Tablets every 8 hours as needed Travatan Z 1 drop each eye Unknown 0.004% every night Solution Pantoprazole Sodium 1 by mouth twice a Unknown day 40mg Tablets DR Preservision Areds 2 1 by mouth twice Unknown daily Areds 2 Capsules Timolol Maleate 1 drop each eye Unknown 0.5% daily (Daily) Solution Ventolin HFA 1-2 puffs as Unknown needed every 4-6 108(90Base) mcg/Act hours for Aerosol shortness for breath Flovent HFA si-2 puffs Unknown 44mcg/Act twice daily Aerosol Mometasone Furoate 2 sprays each Unknown nostrils every day 50mcg/Act Suspension Xyzal Allergy 24HR 1 by mouth every Unknown 5mg day Tablets Metoprolol Tartrate 1/2 by mouth every Unknown day 25mg Tablets Aspirin Unknown 81mg Chewtabs Atorvastatin Calcium 1 by mouth every Unknown day 40mg Tablets History Medications Tylenol Extra Strength 2 by mouth three times 60tabs Unknown - 500mg a day as directed 10/07/2018 Tablets Ipratropium as needed in the Unknown - [place]/Albuterol nebulizer 10/18/2018 Sulfate 0.5-2.5(3)mg/3ML Solution Vital Signs Date Vital Result Comment 10/18/2018 10:54am BP Systolic 122 mmHg BP Diastolic 74 mmHg Heart Rate 72 /min Respiratory Rate 20 /min Height 59 inches 4'11" Weight 109.00 lb Pain Level 8 Pain at this time. Pain Level With Medicine 8 on average with meds Pain Level Without Medicine 9 without meds BMI (Body Mass Index) 22.0 kg/m2 10/07/2018 9:09am BP Systolic 118 mmHg BP Diastolic 76 mmHg Heart Rate 74 /min Respiratory Rate 18 /min Height 59 inches 4'11" Weight 110.00 lb Pain Level 8 Pain at this time. 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 Symptoms and complaints discussed and reviewed today. No significant changes in physical findings. Continue current medical pain management.M54.5 Low back painComments:Chronic. Symptoms and complaints discussed and reviewed today.No changes in physical findings. Patient is stable and comfortable when current medical therapy is rendered.M25.551 Pain in right hipComments:Chronic. Symptoms and complaints discussed and reviewed today. No significant changes in physical findings. Continue current medical pain management.M79.604 Pain in right legComments:Chronic. Symptoms and complaints discussed and reviewed today. No significant changes in physical findings. Continue current medical pain management.M53.3 Sacrococcygeal disorders, not elsewhere classifiedComments:Chronic. Symptoms and complaints discussed and reviewed today. Notable physical findings warranting injections. Patient is stable and comfortable with current medical therapy. Injection therapyperformed today. Injection therapy performed today under musculoskeletal ultrasound for demarcation of pertinent structures and needle guidance for injection - see procedure sheet.Z79.891 [facility] (current) use of opiate analgesicNew Labs:Urine Drug Screen, Ordered: 10/18/18Comments:Urine drug screen sample taken today to monitor opiate use and to monitor use of illicit substances.Will discuss results at next appointment.The following tests were ordered:6 AM, AMPH, SARA, DAPHNIE, BUP, CARIS, COCM, COT, ETG, FENT, MCSHSG, OPI, OXY, PCP, TAPEN, XTSY, ZOLP. A urine drug test (UDT) was ordered for this patient and collected on site today. Creatinine has been ordered as well for specimen validity, not for kidney function. Preliminary UDT results are not final and should not be used to determine patient care or plan of treatment. Initially a qualitative immunoassay screen will be done. Any inconsistent or positive findings will be further tested with a more comprehensive quantitative confirmation LCMS study. It is part of the treatment process of prescribing controlled substances and is considered standard of care.AllComments:Continue current medical pain management; injection therapy, osteopathic manipulation, PT / modalities, and consults as needed to manage chronic pain.Non - opioid pain management discussed and optionsdiscussed.Side effects discussed; anticipatory guidance given. Patient clearly understand and agree with all medical treatments and suggestions. All medicines prescribed are adequate and appropriate for this patient's complaint of pain, medical history, physical, and personal goals.Goals of Treatment are to provide adequate and appropriate multidisciplinary medical pain management to increase/ maintain patient's quality of life and functionality while maintaining satisfactory side effect profile andminimizing senior living end-organ damage. Importance of regular nutrition throughout the day discussed.Activity as toleratedContinue with PCP
--- OUTSIDE RECORDS SUMMARY | 2018-11-06 18:12 | XMS REPORT | Continuity of Care Document ---
:1930 External Reference #:[id number] Author Name Vero Ngo Care Team Providers Name Role Phone Lalo Mcmahon M.D. 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 Primary Care Physician Unavailable Payers Date Identification Numbers Payment Provider Subscriber Policy Number: [id number] [employer] [place] PayID: [id number] [address] [place] [address] Policy Number: [id number] [facility] Ivon PayID: [id number] [address] [place] [address] Family History Date Family Member(s) Observation Comments Father due to Diabetes () Mother due to [place] () Children 1 Siblings 11 Social History Type Date Description Comments Sex Unknown Marital Status Lives With niece Occupation Retired Work Status Not Currently Working ETOH Use Never used alcohol Tobacco Use Start: Unknown Patient has never smoked Recreational Drug Use Denies Drug Use Smoking Status Reviewed: 10/07/18 Patient has never smoked Allergies, Adverse Reactions, Alerts Active Allergies Reaction Severity Comments Date Sulfamethoxazole 10/07/2018 Zithromax 10/07/2018 Levaquin 10/07/2018 Codeine 10/07/2018 Amoxicillin 10/07/2018 Augmentin 10/07/2018 Cipro 10/07/2018 Cephalexin 10/07/2018 Trimethoprim 10/07/2018 Clavulanic Acid 10/07/2018 Latanoprost 10/07/2018 Shellfish-Derived Products 10/07/2018 Inactive Allergies NKDA 10/06/2018 Medications Active Medications SIG Qnty Indications Ordering Date Provider Oxycodone HCL si/2 by mouth 15tabs Denys Humphreys, 10/07/2018 5mg every 12 hours as DO, MPH Tablets directed chronic pain patient Diclofenac Sodium apply four grams 480gm Denys Humphreys, 10/07/2018 1% to left elbow four DO, MPH Gel times a day Levoxyl 1 by mouth every Unknown 25mcg Tablets morning Multivitamin Adult 1 by mouth daily Unknown Tablets Calcium 600+D 1 by mouth in the Unknown Tablets morning Xanax si by mouth Unknown 0.25mg Tablets every 8 hours as needed Ipratropium as needed in the Unknown [place]/Albuterol nebulizer Sulfate 0.5-2.5(3)mg/3ML Solution Travatan Z 1 drop each eye Unknown [...] by mouth three times 60tabs Unknown - 10/07/2018 a day as directed 500mg Tablets Vital Signs Date Vital Result Comment 10/07/2018 9:09am BP Systolic 118 mmHg BP Diastolic 76 mmHg Heart Rate 74 /min Respiratory Rate 18 /min Height 59 inches 4'11" Weight 110.00 lb Pain Level 8 Pain at this time. Pain Level Without Medicine 9 without meds BMI (Body Mass Index) 22.2 kg/m2 Plan of Treatment Future Appointment(s):10/18/2018 10:45 am - Denys Humphreys DO, MPH at Main Office as Of 06/03/1405 - Denys Humphreys DO, MPHG89.29 Other chronic painComments:Chronic Intractable Pain. Symptoms and complaints discussed and reviewed today. Begin trial of adequate and appropriate Opioid Pain Management as well as non-opioid treatment options - New Medications listed below.M54.5 Low back painComments:Chronic Intractable Pain. Symptoms and complaints discussed and reviewed today. Begin trial of adequate and appropriate Opioid Pain Management as well as non-opioid treatment plan - New Medications listed below.M25.551 Pain in right hipComments:Chronic Intractable Pain. Symptoms and complaints discussed and reviewed today. Begin trial of adequate and appropriate Opioid Pain Management as well as non-opioid treatment plan - New Medications listed below.M79.604 Pain in right legComments:Chronic Intractable Pain. Symptoms and complaints discussed and reviewed today. Begin trial of adequate and appropriate Opioid Pain Management as well as non-opioid treatment options - New Medications listed below.M48.062 Spinal stenosis, lumbar region with neurogenic claudicationComments:Chronic Intractable Pain. Symptoms and complaints discussed and reviewed today. Begin trial of adequate and appropriate Opioid Pain Management as well as non-opioid treatment options - New Medications listed below.M25.552 Pain in left hipComments:Symptoms and complaints discussed and reviewed today. Begin trial of adequate and appropriate OpioidPain Management - New Medications listed below.I34.0 Nonrheumatic mitral (valve) insufficiencyComments:Followed by PCP and cardiology. Continue current medical management. Will monitor as it pertains to her pain.Z79.891 [facility] (current) use of opiate analgesicNew Labs:Urine Drug Screen, Ordered: 10/07/18Comments:Urine drug screen sample taken today to monitor [...] controlled substances and is considered standard of care.Z13.31 Encounter for screening for depressionComments:PHQ-9 Depression Screen administered today, results were Positive at this time. Followed by PCP. Will follow as pertains to their pain. Patient seems to be stable today. Reassurance and counseling. Patient seems to be stable today.Z71.3 Dietary counseling and surveillanceComments:Regular, small , nutritious meals higher in protein encouraged spaced evenly throughout the day. Count calories. Keep a food log. Hydrate.AllNew Medication:Oxycodone HCL 5 mg - si/2 by mouth every 12 hours as directed chronic pain patientDiclofenac Sodium 1 % - apply four grams to left elbow four times a dayComments:Chronic intractable pain - Begin trial of adequate and appropriate Opioid Pain Management - New Medications listed below; injection therapy, osteopathic manipulation, PT / modalities, and consults as needed to manage chronic pain.Non - opioid pain management discussed and options discussed.Side effects discussed; anticipatory guidance given. Patient clearly understand and agree with all medical treatments and suggestions. All medicines prescribed are adequate and appropriate for this patient's complaint of pain, medical history, physical, and personal goals.Goals of Treatment are to provide adequate and appropriate multidisciplinary medical pain management to increase/ maintain patient's quality of life and functionality while maintaining satisfactory side effect profile and minimizing fci end-organ damage. Importance of regular nutrition throughout the day discussed.Activity as toleratedContinue with PCP
[2018-11-06 18:28] VITALS: BP 164/79
[2018-11-06] MEDS ORDERED: Nitrofurantoin Macrocrystals* 50 MG CAP PO ONE ×2 (18:56→18:57)
--- NOTE | 2018-11-06 20:29 | UC ---
Complaint Female HPI - HPI Summary HPI Summary: ONSET YESTERDAY OF DYSURIA, FREQUENCY AND URGENCY. NO FEVER, NAUSEA OR BACK PAIN. - History Of Current Complaint Chief Complaint: UCGU Stated Complaint: BURNING URINATION Time Seen by Provider: 11/06/18 18:38 Hx Obtained From: Patient Onset/Duration: Gradual Onset, Lasting Days - 1 DAY, Still Present Timing: Constant Severity Initially: Moderate Severity Currently: Moderate Pain Intensity: 3 Pain Scale Used: 0-10 Numeric Character: Burning Aggravating Factor(s): Urination Alleviating Factor(s): Nothing Associated Signs And Symptoms: Negative: Fever, Back Pain, Vaginal Discharge, Nausea - Allergies/Home Medications Allergies/Adverse Reactions: Allergies Allergy/AdvReac Type Severity Reaction Status Date / Time amoxicillin AdvReac Nausea And Verified 11/06/18 18:28 Vomiting azithromycin [From Zithromax] AdvReac Nausea And Verified 11/06/18 18:28 Vomiting cephalexin AdvReac Nausea And Verified 11/06/18 18:28 Vomiting ciprofloxacin [From Cipro] AdvReac Nausea And Verified 11/06/18 18:28 Vomiting clavulanic acid AdvReac Nausea And Verified 11/06/18 18:28 Vomiting codeine AdvReac Nausea And Verified 11/06/18 18:28 Vomiting lactose AdvReac Diarrhea Verified 11/06/18 18:28 latanoprost AdvReac Nausea And Verified 11/06/18 18:28 Vomiting levofloxacin [From Levaquin] AdvReac Nausea And Verified 11/06/18 18:28 Vomiting shellfish derived AdvReac Nausea And Verified 11/06/18 18:28 Vomiting sulfamethoxazole AdvReac Nausea And Verified 11/06/18 18:28 Vomiting trimethoprim AdvReac Nausea And Verified 11/06/18 18:28 Vomiting enviromental Allergy Mild itchy eyes Uncoded 11/06/18 18:28 Home Medications: Home Medications Acetaminophen [Tylenol] 650 mg PO BID PRN 11/06/18 [History Confirmed 11/06/18] Albuterol HFA INHALER* [Ventolin HFA Inhaler*] 2 puff INH Q4H PRN 11/06/18 [ History Confirmed 11/06/18] Aspirin 81 mg CHEW TAB* 81 mg PO DAILY 11/06/18 [History Confirmed 11/06/18] Atorvastatin* [Lipitor 40 MG*] 40 mg PO DAILY 11/06/18 [History Confirmed ] Ipratropium Br (Nf)0.03% Nasal [Ipratropium [place]] 0.03 % NA DAILY 11/06/18 [ History Confirmed 11/06/18] Levothyroxine TAB* [Synthroid 25 MCG TAB*] 25 mcg PO DAILY 11/06/18 [History Confirmed 11/06/18] Opioid For Back Pain 0.5 tab PO BID PRN 11/06/18 [History Confirmed 11/06/18] Shots For Back Pain W Dr Humphreys 11/06/18 [History] PMH/Surg Hx/FS Hx/Imm Hx - Additional Past Medical History Additional PMH: LUMBAR STENOSIS Endocrine History: Hypothyroidism Cardiovascular History: Hypertension, Pacemaker/ICD Respiratory History: Asthma - Surgical History Surgical History: Yes Surgery Procedure, Year, and Place: cardiac surgery done 03/2013, valve replacement. PACEMAKER 2012 [place]. right wrist - Family History Known Family History: Positive: Cardiac Disease, Other - COLON CA; ALZ; DEMENTIA - Social History Alcohol Use: None Substance Use Type: None Smoking Status (MU): Never Smoked Tobacco - Immunization History Most Recent Influenza Vaccination: 01/2017 Most Recent Tetanus Shot: up to date Most Recent Pneumonia Vaccination: received Review of Systems All Other Systems Reviewed And Are Negative: Yes Constitutional: Positive: Negative Respiratory: Positive: Negative Cardiovascular: Positive: Negative Gastrointestinal: Positive: Negative Genitourinary: Positive: Dysuria, Frequency, Urgency Physical Exam Triage Information Reviewed: Yes Appearance: Well-Appearing, No Pain Distress, Well-Nourished Vital Signs: Initial Vital Signs Temp 98.4 F 11/06/18 18:23 Pulse 86 11/06/18 18:23 Resp 16 11/06/18 18:23 BP 164/79 11/06/18 18:23 Pulse Ox 98 11/06/18 18:23 Laboratory Tests 11/06/18 18:23 POC Urine Color Yellow POC Urine Clarity Clear POC Urine pH 6.5 POC Ur Specif [place] 1.010 POC Urine Protein Negative POC Ur Glucose (UA) Negative POC Urine Ketones Negative POC Urine Blood Trace-lysed A POC Urine Nitrite Negative POC Urine Bilirubin Negative POC Urine Urobilinogen 0.2 POC U Leukocyte Esteras 1+ A Vital Signs Reviewed: Yes Eyes: Positive: Conjunctiva Clear ENT: Positive: Hearing grossly normal Neck: Positive: Supple Respiratory: Positive: No respiratory distress, No accessory muscle use Cardiovascular: Positive: Pulses Normal Abdomen Description: Positive: Nontender, Soft. Negative: CVA Tenderness (R), CVA Tenderness (L), Distended, Guarding Musculoskeletal: Positive: No Edema Neurological: Positive: Alert Psychological: Positive: Normal Response To Family, Age Appropriate Behavior Skin: Negative: Rashes Complaint Female Dx - Differential Dx/Diagnosis Provider Diagnosis: UTI (urinary tract infection) Discharge - Sign-Out/Discharge Documenting (check all that apply): Patient Departure All imaging exams completed and their final reports reviewed: No Studies - Discharge Plan Condition: Stable Disposition: HOME Prescriptions: Nitrofurantoin Macrocrystal [Nitrofurantoin] 100 mg PO BID #8 capsule Patient Education Materials: Urinary Tract Infection in Women (ED) Referrals: Maria Ines Lopez MD [Primary Care Provider] - If Needed Additional Instructions: WILL TREAT YOUR UTI SYMPTOMS EMPIRICALLY WITH NITROFURANTOIN TWICE DAILY FOR 5 DAYS. YOU REPORT YOUR SYMPTOMS RESPONDED WELL TO THIS IN THE PAST. YOUR URINE WILL BE SENT FOR CULTURE AND WE WILL CALL YOU IF YOUR TREATMENT NEEDS TO BE CHANGED. YOUR LAST VISIT FOR URINARY SYMPTOMS HERE WAS 05/15/18. AT THAT TIME YOUR URINE CULTURE WAS NEGATIVE. IF YOU HAVE INCREASING FREQUENCY OF UTI SYMPTOMS YOU MAY BENEFIT FROM UROLOGY EVALUATION. FOLLOW-UP WITH YOUR PCP IF NEEDED. - Billing Disposition and Condition Condition: STABLE Disposition: Home
== END 2018-11-06 19:13 | disposition home or self-care (01) ==
LOC: UCEAST 18:08
DX: N39.0 Urinary tract infection, site not specified (principal); E03.9 Hypothyroidism, unspecified; I10 Essential (primary) hypertension; J45.909 Unspecified asthma, uncomplicated; Z79.82 Long term (current) use of aspirin; Z95.810 Presence of automatic (implantable) cardiac defibrillator; Z95.2 Presence of prosthetic heart valve; Z88.2 Allergy status to sulfonamides; Z88.8 Allergy status to other drugs, medicaments and biological substances; Z88.1 Allergy status to other antibiotic agents; Z91.011 Allergy to milk products; Z88.5 Allergy status to narcotic agent; Z88.0 Allergy status to penicillin; Z91.013 Allergy to seafood
CPT/HCPCS: 81003; 87086; 99213; A9270-GY; G0463

== ENCOUNTER 2019-05-06 13:45 | Emergency (ER) | payer MEDICARE, OTHER ==
--- OUTSIDE RECORDS SUMMARY | 2019-05-06 13:50 | XMS REPORT | Continuity of Care Document ---
:1930 External Reference #:[id number] Author Name Ruiz Paz M.D. Address [address] [place] [address] Care Team Providers Name Role Phone Diana Knox M.D. - Family Medicine Care Team Information Inbound Customer Service Representative [phone] Jorge Luis Fischer M.D. - Cardiovascular Care Team Information Inbound Customer Service Representative [phone] Disease Maria Ines Lopez M.D. - Family Care Team Information Inbound Customer Service Representative Unavailable Medicine Problems Active Problems Provider Date Primary open angle glaucoma Marisela Pastrana O.D. Onset: 12/27/2014 Moderate Glaucoma Marisela Pastrana O.D. Onset: 12/27/2014 Mild / Early Stage Glaucoma Marisela Pastrana O.D. Onset: 12/27/2014 Seasonal allergy Onset: Asthma Onset: Diverticulitis of colon Onset: Chronic urinary tract infection Onset: Retinal drusen Marisela Pastrana O.D. Onset: 02/16/2015 Vitreous degeneration Marisela Pastrana O.D. Onset: 02/16/2015 Combined form of senile cataract Marisela Pastrana O.D. Onset: 02/16/2015 Hypothyroidism Onset: Anxiety Onset: Arterial retinal branch occlusion Jessica Cisneros O.D. Onset: 08/28/2016 Bilateral primary open angle glaucoma Jessica Cisneros O.D. Onset: 08/28/2016 Regular astigmatism Jessica Cisneros O.D. Onset: 08/28/2016 Presbyopia Jessica Cisneros O.D. Onset: 08/28/2016 Tear film insufficiency Harper Jennings O.D. Onset: 06/28/2017 Angular blepharoconjunctivitis Harper Jennings O.D. Onset: 06/28/2017 Mitral valve disorder Onset: Nuclear senile cataract Ruiz Paz M.D. Onset: 09/09/2017 Acute sinusitis Onset: Superficial punctate keratitis Harper Jennings O.D. Onset: 02/24/2018 Social History Type Date Description Comments Sex Unknown ETOH Use Never used alcohol Tobacco Use Start: Unknown Patient has never smoked Recreational Drug Use Never Used Drugs Smoking Status Reviewed: 03/14/19 Patient has never smoked Allergies, Adverse Reactions, Alerts Active Allergies Reaction Severity Comments Date Latanoprost 01/03/2015 Zithromax 01/03/2015 Codeine 01/03/2015 Amoxicillin 01/03/2015 Levaquin 01/03/2015 Cipro 01/03/2015 Sulfa Antibiotics 01/03/2015 Sulfamethoxazole 08/28/2016 Augmentin 09/09/2017 Shellfish-derived Products 09/09/2017 Cephalexin 09/09/2017 Trimethoprim 09/09/2017 Clavulanic Acid 09/09/2017 Medications Active Medications SIG Qnty Indications Ordering Date Provider Warm Compresses as needed Harper Muñoz 02/23/2018 Lakshmi Jennings Night Time Gel QHS Harper Muñoz 02/22/2018 Lakshmi Jennings Timolol Maleate instill one drop 15units H40.11x2 Ruiz 02/19/2015 0.5% in both eyes Js Paz Solution twice a day Oxycodone HCL take 1 tablet by Unknown 5mg mouth every 12 Tablets hours as directed maximum daily dose of 2 Tramadol take 1-2 tablets Unknown Hydrochloride/Acetami by mouth every 4 nophen to 6 hours if 37.5-325mg needed maximum Tablets daily dose of 6 Proctozone-HC Unknown 2.5% Cream Fluoxetine HCL take 1 capsule by Unknown 10mg mouth once daily Capsules Travatan Z instill one drop 15units Ruiz 0.004% in both eyes Js Paz Solution every night Ranitidine HCL Unknown 150mg Capsules Artificial Tears as needed Ruiz Js Paz 0.2-0.2-1% Solution Tylenol Extra 2 by mouth as Unknown Strength needed 500mg Tablets Multiple Vitamins Unknown Tablets Flovent HFA Unknown 44mcg/Act Aerosol Preservision Areds 2 1 cap by mouth 90caps Ruiz twice a day Js Paz Areds 2 Capsules Metoprolol Tartrate Unknown 25mg Tablets Mometasone Furoate instill 2 sprays Unknown into each nostril 50mcg/Act Suspension once daily Vitamin D every day Unknown 2000Unit Tablets Xyzal Allergy 24HR Unknown 5mg Tablets Atorvastatin Calcium Abilio, Ahmad M.DMary 40mg Tablets Levoxyl Abilio mariusz 25mcg Tablets M.DMary Ventolin HFA Unknown 108(90Base) mcg/Act Aerosol Calcium 600 Unknown 600mg Tablets Aspirin Unknown 81mg Tablets Ipratropium Unknown [place]/Albuterol Sulfate 0.5-2.5(3)mg/3ML Solution Alprazolam Unknown 0.25mg Tablets Dispers Immunizations Description No Information Available Vital Signs Date Vital Result Comment 03/14/2018 10:19am BP Systolic 142 mmHg Lwrist Sitting BP Diastolic 80 mmHg Lwrist Sitting Results Description No Information Available Procedures Date Code Description Status 12/06/2018 67160 Visual Field Exam Extended Completed 12/06/2018 58418 Est Patient Comprehensive Exam Completed Medical Devices Description No Information Available Encounters Description No Information Available Assessments Date Code Description Provider 03/14/2019 H40.1132 Primary open-angle glaucoma, bilateral, Ruiz Paz M.D. moderate stage 12/06/2018 H40.1132 Primary open-angle glaucoma, bilateral, Ruiz Paz M.D. moderate stage Plan of Treatment 03/14/2019 - Ruiz Paz M.D.H40.1132 Primary open-angle glaucoma, bilateral, moderate stageComments:Smoking can increase the risk of developing or worsening any eye related disease, as well as affect your overall health. If you are a smoker, we strongly recommend that you quit.If you are not a smoker , we strongly recommend that you do not start. Your glaucoma is stable at this time.Your eye pressure is within an acceptable range, and your testing does not show any further deterioration at this time. Please continue your treatment. CONTINUE USING THE TIMOLOL AND TRAVATAN Z DROPS DIRECTED.Follow up:6 Month Follow Up IOP CHECK You can expect to have your eyes dilated at your next visit. If Dr. Paz orders any additional testing, it may require extra time. We recommend that you bring sunglasses, as dilation drops often make you light sensitive until they wear off. We always recommend you bring someone to drive you home if you are uncomfortable driving with your eyes dilated. If you have any questions before your next visit, feel free to call our office at . Functional Status Description No Information Available Mental Status Description No Information Available Referrals Description No Information Available
--- OUTSIDE RECORDS SUMMARY | 2019-05-06 13:50 | XMS REPORT | Continuity of Care Document ---
:1930 External Reference #:[id number] Author Name Denys Humphreys DO, MPH Address [address] [place] [address], [address] [place] [address] Care Team Providers Name Role Phone Maria Ines Lopez M.D. - Family Medicine Care Team Information [phone] Utility Service Worker Lalo Mcmahon M.D. - Care Team Information [phone] Neuromusculoskeletal Medicine, Sports Utility Service Worker Medicine Problems Description No Information Available Social History Type Date Description Comments Sex Unknown ETOH Use Never used alcohol Tobacco Use Start: Unknown Patient has never smoked Recreational Drug Use Denies Drug Use Smoking Status Reviewed: 04/21/19 Patient has never smoked Allergies, Adverse Reactions, Alerts Active Allergies Reaction Severity Comments Date Sulfamethoxazole 10/07/2018 Zithromax 10/07/2018 Levaquin 10/07/2018 Codeine 10/07/2018 Amoxicillin 10/07/2018 Augmentin 10/07/2018 Cipro 10/07/2018 Cephalexin 10/07/2018 Trimethoprim 10/07/2018 Clavulanic Acid 10/07/2018 Latanoprost 10/07/2018 Shellfish-Derived Products 10/07/2018 Inactive Allergies NKDA 10/06/2018 Medications Active Medications SIG Qnty Indications Ordering Date Provider Oxycodone HCL si/2-1 by mouth 42tabs Denys Humphreys, 10/07/2018 5mg every 8 hours as DO, MPH Tablets directed chronic pain patient Diclofenac Sodium apply four grams 480gm Denys Humphreys, 10/07/2018 1% to left elbow four DO, MPH Gel times a day Famotidine si po qhs Unknown 40mg Tablets Levoxyl 1 by mouth every Unknown 25mcg [...] by mouth every Unknown day 40mg Tablets Immunizations Description No Information Available Vital Signs Date Vital Result Comment 04/21/2019 2:30pm BP Systolic 100 mmHg BP Diastolic 70 mmHg Heart Rate 68 /min Respiratory Rate 20 /min Height 59 inches 4'11" Weight 106.00 lb Pain Level 5 Pain at this time. Pain Level With Medicine 5 on average with meds Pain Level Without Medicine 9 without meds BMI (Body Mass Index) 21.4 kg/m2 03/23/2019 2:47pm BP Systolic 110 mmHg BP Diastolic 62 mmHg Heart Rate 68 /min Respiratory Rate 20 /min Height 59 inches 4'11" Weight 108.00 lb Pain Level 8 Pain at this time. Pain Level With Medicine 7 on average with meds Pain Level Without Medicine 9 without meds BMI (Body Mass Index) 21.8 kg/m2 Results Description No Information Available Procedures Date Code Description Status 12/17/2018 23871 Omt 1-2 Body Regions Completed 12/17/2018 17622 Arthrocentesis/Aspiration/Inj Of Major Joint Or Bursa W/ Completed Ultra 12/17/2018 Injection, Single Or Mutiple Trigger Points One Or Two Completed Muscles 12/17/2018 Injection, Tendon Origin/Insertion Completed 12/17/2018 Injection, Tendon Origin/Insertion Completed 12/17/201825937 Inject Tendon/Ligament Completed 12/17/2018 Inject Tendon/Ligament Completed 12/17/201845826 Inject Tendon/Ligament Completed 12/17/201884335 Inject Tendon/Ligament Completed Medical Devices Description No Information Available Encounters Type Date Location Provider Dx Diagnosis Office Visit 03/23/2019 Main Office as Of Denys Humphreys DO G89.29 Other chronic pain 3:00p 06/03/13 MPH M54.5 Low back pain M25.551 Pain in right hip M79.604 Pain in right leg 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 Office Visit 02/22/2019 3:30p Main Office as Denys Humphreys G89.29 Other chronic Of 06/03/13 DO, MPH pain M54.5 Low back pain M25.551 Pain in right hip M79.604 Pain in right leg M46.1 Sacroiliitis, not elsewhere classified Z79.891 [facility] (current) use of opiate analgesic Office Visit 01/23/2019 3:30p Main Office as Denys Humphreys G89.29 Other chronic Of 06/03/13 DO, MPH pain M79.604 Pain in right leg M25.551 Pain in right hip M54.5 Low back pain M46.1 Sacroiliitis, not elsewhere classified Z79.891 [facility] (current) use of opiate analgesic Office Visit 12/20/2018 4:00p Main Office as Denys Humphreys G89.29 Other chronic Of 06/03/13 DO, MPH pain M54.5 Low back pain M79.604 Pain in right leg M25.551 Pain in right hip 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 Office Visit 12/17/2018 9:15a Main Office as Denys Humphreys G89.29 Other chronic Of 06/03/13 DO, MPH pain M54.5 Low back pain M46.1 Sacroiliitis, not elsewhere classified M79.18 Myalgia, other site 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, sacral and sacrococcygeal region M65.88 Other synovitis and tenosynovitis, other site M99.03 Segmental and somatic dysfunction of lumbar region M99.04 Segmental and somatic dysfunction of sacral region Office Visit 11/23/2018 9:30a Main Office as HumphreysMarciano njph, G89.29 Other chronic Of 06/03/13 DO, MPH pain M25.551 Pain in right hip M79.604 Pain in right leg M54.5 Low back pain M48.062 Spinal stenosis, lumbar region with neurogenic claudication 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 Assessments Date Code Description Provider 04/21/2019 G89.29 Other chronic pain Humphreys, Denys, DO, MPH 04/21/2019 M25.551 Pain in right hip Humphreys, Denys, DO, MPH 04/21/2019 M54.5 Low back pain Humphreys, Denys, DO, MPH 04/21/2019 M79.604 Pain in right leg Humphreys, Denys, DO, MPH 04/21/2019 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 Humphreys, Denys , DO, MPH 03/23/2019 G89.29 Other chronic pain Humphreys, Denys, DO, MPH 03/23/2019 M54.5 Low back pain Humphreys, Denys, DO, MPH 03/23/2019 M25.551 Pain in right hip Humphreys, Denys, DO, MPH 03/23/2019 M79.604 Pain in right leg Humphreys, Denys, DO, MPH 03/23/2019 Z79.891 [facility] (current) use of opiate analgesic Humphreys, Denys , DO, MPH 02/22/2019 G89.29 Other chronic pain Humphreys, Denys, DO, MPH 02/22/2019 M54.5 Low back pain Humphreys, Denys, DO, MPH 02/22/2019 M25.551 Pain in right hip Humphreys, Denys, DO, MPH 02/22/2019 M79.604 Pain in right leg Humphreys, Denys, DO, MPH 02/22/2019 M46.1 Sacroiliitis, not elsewhere classified Humphreys, Denys, DO, MPH 02/22/2019 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 Humphreys, Denys , DO, MPH 01/23/2019 G89.29 Other chronic pain Humphreys, Denys, DO, MPH 01/23/2019 M79.604 Pain in right leg Humphreys, Denys, DO, MPH 01/23/2019 M25.551 Pain in right hip Humphreys, Denys, DO, MPH 01/23/2019 M54.5 Low back pain Humphreys, Denys, DO, MPH 01/23/2019 M46.1 Sacroiliitis, not elsewhere classified Humphreys, Denys, DO, MPH 01/23/2019 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 Humphreys, Denys , DO, MPH 12/20/2018 G89.29 Other chronic pain Humphreys, Denys, DO, MPH 12/20/2018 M54.5 Low back pain Humphreys, Denys, DO, MPH 12/20/2018 M79.604 Pain in right leg Humphreys, Denys, DO, MPH 12/20/2018 M25.551 Pain in right hip Humphreys, Denys, DO, MPH 12/20/2018 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 Humphreys, Denys , DO, MPH 12/17/2018 G89.29 Other chronic pain Humphreys, Denys, DO, MPH 12/17/2018 M54.5 Low back pain Humphreys, Densy, DO, MPH 12/17/2018 M46.1 Sacroiliitis, not elsewhere classified Humphreys, Denys, DO, MPH 12/17/2018 M79.18 Myalgia, other site Humphreys, Denys, DO, MPH 12/17/2018 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, sacral and Humphreys, Denys, DO, MPH sacrococcygeal region 12/17/2018 M65.88 Other synovitis and tenosynovitis, other Humphreys, Denys, DO , MPH site 12/17/2018 M99.03 Segmental and somatic dysfunction of lumbar Humphreys, Denys, DO, MPH region 12/17/2018 M99.04 Segmental and somatic dysfunction of sacral Denys Humphreys DO, [facility] region 11/23/2018 G89.29 Other chronic pain Denys Humphreys DO MPH 11/23/2018 M25.551 Pain in right hip Denys Humphreys DO, MPH 11/23/2018 M79.604 Pain in right leg Denys Humphreys DO MPH 11/23/2018 M54.5 Low back pain Denys Humphreys DO MPH 11/23/2018 M48.062 Spinal stenosis, lumbar region with Denys Humphreys DO, [facility] neurogenic claudication 11/23/2018 Z79.891 [facility] (current) use of opiate analgesic eDnys Humphreys DO, MPH Plan of Treatment 04/21/2019 - [facility] Other chronic painComments:Chronic. Symptoms and complaints discussed and reviewed today. No significant changes in physical findings. Continue current medical pain management.M25.551 Pain in right hipComments:Chronic. Symptoms and complaints discussed and reviewed today. No significant changes in physical findings. Continue current medical pain management.M54.5 Low back painComments:Chronic. Symptoms and complaints discussed and reviewed today.No changes in physical findings. Patient is stable and comfortable when current medical therapy is rendered.M79.604 Pain in right legComments:Chronic. Symptoms and complaints discussed and reviewed today. No significant changes in physical findings. Continue current medical pain management.Z79.891 [facility] (current) use of opiate analgesicNew Labs:Urine Drug Screen, Ordered: 04/21/19Comments:Urine drug screen sample taken today to monitor opiate use and to monitor use of illicit substances.Will discuss results at next appointment.The following tests were ordered:6 AM, AMPH, SARA, DAPHNIE, BUP, CARIS, COCM, ETG, FENT, MCSHSG, OPI, OXY, PCP, TAPEN, XTSY, ZOLP. A urine drug test (UDT) was ordered for this patient and collected on site today. Creatinine has been ordered as well for specimen validity, not for kidney function. Preliminary UDT results are not final and should not be used to determine patient care or plan of treatment. Initially a qualitative immunoassay screen will bedone. Any inconsistent or positive findings will be further tested with a more comprehensive quantitative confirmation LCMS study. It is part of the treatment process of prescribing controlled substances and is considered standard of care.AllComments:Continue current medical pain management ; injection therapy, osteopathic manipulation, PT / modalities, [...] while maintaining satisfactory side effect profile andminimizing termite inspector end-organ damage. Importance of regular nutrition throughout the day discussed.Activity as toleratedContinue with PCP Functional Status Description No Information Available Mental Status Description No Information Available Referrals Description No Information Available
--- OUTSIDE RECORDS SUMMARY | 2019-05-06 13:50 | XMS REPORT | Continuity of Care Document ---
:1930 External Reference #:[id number] Author Name Denys Humphreys DO MPH Address [address] [place] [address], [address] [place] [address] Care Team Providers Name Role Phone Maria Ines Lopez M.D. - Family Medicine Care Team Information [phone] Mortgage Field Inspector Lalo Mcmahon M.D. - Care Team Information [phone] Neuromusculoskeletal Medicine, Sports Mortgage Field Inspector Medicine Problems Description No Information Available Social History Type Date Description Comments Sex Unknown ETOH Use Never used alcohol Tobacco Use Start: Unknown Patient has never smoked Recreational Drug Use Denies Drug Use Smoking Status Reviewed: 03/23/19 Patient has never smoked Allergies, Adverse Reactions, Alerts Active Allergies Reaction Severity Comments Date Sulfamethoxazole 10/07/2018 Zithromax 10/07/2018 Levaquin 10/07/2018 Codeine 10/07/2018 Amoxicillin 10/07/2018 Augmentin 10/07/2018 Cipro 10/07/2018 Cephalexin 10/07/2018 Trimethoprim 10/07/2018 Clavulanic Acid 10/07/2018 Latanoprost 10/07/2018 Shellfish-Derived Products 10/07/2018 Inactive Allergies NKDA 10/06/2018 Medications Active Medications SIG Qnty Indications Ordering Date Provider Oxycodone HCL si/2-1 by mouth 35tabs Denys Humphreys, 10/07/2018 5mg every 8 hours as DAVID FUENTES Tablets directed chronic pain patient Levoxyl 1 by mouth every Unknown 25mcg [...] every Unknown day 40mg Tablets History Medications Diclofenac Sodium apply four grams 480gm Denys Humphreys DO, 10/07/2018 - 1% Gel to left elbow MPH 03/23/2019 four times a day Immunizations Description No Information Available Vital Signs Date Vital Result Comment 03/23/2019 2:47pm BP Systolic 110 mmHg BP Diastolic 62 mmHg Heart Rate 68 /min Respiratory Rate 20 /min Height 59 inches 4'11" Weight 108.00 lb Pain Level 8 Pain at this time. Pain Level With Medicine 7 on average with meds Pain Level Without Medicine 9 without meds BMI (Body Mass Index) 21.8 kg/m2 02/22/2019 3:45pm BP Systolic 120 mmHg BP Diastolic 70 mmHg Heart Rate 72 /min Respiratory Rate 20 /min Height 59 inches 4'11" Weight 105.00 lb Pain Level 5 Pain at this time. Pain Level With Medicine 5 on average with meds Pain Level Without Medicine 9 without meds BMI (Body Mass Index) 21.2 kg/m2 Results Description No Information Available Procedures Date Code Description Status 12/17/2018 44458 Omt 1-2 Body Regions Completed 12/17/2018 Arthrocentesis/Aspiration/Inj Of Major Joint Or Bursa W/ Completed Ultra 12/17/2018 Injection, Single Or Mutiple Trigger Points One Or Two Completed Muscles 12/17/2018 Injection, Tendon Origin/Insertion Completed 12/17/2018 Injection, Tendon Origin/Insertion Completed 12/17/2018 Inject Tendon/Ligament Completed 12/17/2018 Inject Tendon/Ligament Completed 12/17/2018 Inject Tendon/Ligament Completed 12/17/2018 Inject Tendon/Ligament Completed 10/18/2018 Arthrocentesis/Aspiration/Inj Of Major Joint Or Bursa W/ Completed Ultra 10/07/2018 93307 Brief Emotional/Behav Assessment W/ Scoring Doc Per Completed Standard [facility] Medical Devices Description No Information Available Encounters Type Date Location Provider Dx Diagnosis Office Visit 02/22/2019 Main Office as Of Denys Humphreys DO G89.29 Other chronic pain 3:30p 06/03/13 MPH M54.5 Low back pain M25.551 Pain in right hip M79.604 Pain in right leg M46.1 Sacroiliitis, not elsewhere classified Z79.891 [employer] continuous churn (current) use of opiate analgesic Office Visit [...] leg M25.551 Pain in right hip Z79.891 [facility] (current) use [...] Office Visit 11/23/2018 9:30a Main Office as Denys Humphreys, G89.29 Other chronic Of 06/03/13 DO, MPH pain M25.551 Pain in right hip M79.604 Pain in right leg M54.5 Low back pain M48.062 Spinal stenosis, lumbar region with neurogenic claudication Z79.891 [facility] (current) use of opiate analgesic Office Visit 10/18/2018 10:45a Main Office as Denys Humphreys, G89.29 Other chronic Of 06/03/13 DO, MPH pain M54.5 Low back pain M25.551 Pain in right hip M79.604 Pain in right leg M53.3 Sacrococcygeal disorders, not elsewhere classified Z79.891 [facility] (current) use of opiate analgesic Office Visit 10/07/2018 9:00a Main Office as Denys Humphreys, G89.29 Other chronic Of 06/03/13 DO, MPH pain M54.5 Low back pain M25.551 Pain in right hip M79.604 Pain in right leg M48.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 stenosis, lumbar region with neurogenic claudication M25.552 Pain in left hip I34.0 Nonrheumatic mitral (valve) insufficiency Z79.891 [facility] (current) use of opiate analgesic Z13.31 Encounter for screening for depression Z71.3 Dietary counseling and surveillance Assessments Date Code Description Provider 03/23/2019 G89.29 Other chronic pain HumphreysDenys nj DO, MPH 03/23/2019 M54.5 Low back pain HumphreysMarciano njph, DO, MPH 03/23/2019 M25.551 Pain in right hip HumphryesDenys nj, DO, MPH 03/23/2019 M79.604 Pain in right leg HumphreysDenys nj, DO, MPH 03/23/2019 Z79.891 [facility] (current) use of opiate analgesic Denys Humphreys , DO, MPH 02/22/2019 G89.29 Other chronic pain Humphreys, Deyns, DO, MPH 02/22/2019 M54.5 Low back pain HumphreysDenys nj, DO, MPH 02/22/2019 M25.551 Pain in right hip Humphreys, Denys, DO, MPH 02/22/2019 M79.604 Pain in right leg Humphreys, Denys, DO, MPH 02/22/2019 M46.1 Sacroiliitis, not elsewhere classified Humphreys, Denys, DO, MPH 02/22/2019 Z79.891 [facility] (current) use [...] classified Humphreys, Denys, DO, MPH 01/23/2019 Z79.891 [facility] (current) use of opiate analgesic Humphreys, Denys , DO, MPH 12/20/2018 G89.29 Other chronic pain Humphreys, Denys, DO, MPH 12/20/2018 M54.5 Low back pain Humphreys, Denys, DO, MPH 12/20/2018 M79.604 Pain in right leg Humphreys, Denys, DO, MPH 12/20/2018 M25.551 Pain in right hip Humphreys, Denys, DO, MPH 12/20/2018 Z79.891 [employer] (current) use of opiate analgesic Humphreys, Denys , DO, MPH 12/17/2018 G89.29 Other chronic pain Humphreys, Denys, DO, MPH 12/17/2018 M54.5 Low back pain Humphreys, Denys, DO, MPH 12/17/2018 M46.1 Sacroiliitis, not elsewhere [...] M99.04 Segmental and somatic dysfunction of sacral Humphreys, Denys, DO, MPH region 11/23/2018 G89.29 Other chronic pain Humphreys, Denys, DO, MPH 11/23/2018 M25.551 Pain in right hip Humphreys, Denys, DO, MPH 11/23/2018 M79.604 Pain in right leg Humphreys, Denys, DO, MPH 11/23/2018 M54.5 Low back pain Humphreys, Denys, DO, MPH 11/23/2018 M48.062 Spinal stenosis, lumbar region with Humphreys, Denys, DO, MPH neurogenic claudication 11/23/2018 Z79.891 [facility] (current) use of opiate analgesic Humphreys, Denys , DO, MPH 10/18/2018 G89.29 Other chronic pain Humphreys, Denys, DO, MPH 10/18/2018 M54.5 Low back pain Humphreys, Denys, DO, MPH 10/18/2018 M25.551 Pain in right hip Humphreys, Denys, DO, MPH 10/18/2018 M79.604 Pain in right leg Humphreys, Denys, DO, MPH 10/18/2018 M53.3 Sacrococcygeal disorders, not elsewhere Humphreys, Denys, DO, MPH classified 10/18/2018 Z79.891 [employer]term[employer] continuous churn (current) use of opiate analgesic Humphreys, Denys , DO, MPH 10/07/2018 G89.29 Other chronic pain Humphreys, Denys, DO, MPH 10/07/2018 M54.5 Low back pain Humphreys, Denys, DO, MPH 10/07/2018 M25.551 Pain in right hip Humphreys, Denys, DO, MPH 10/07/2018 M79.604 Pain in right leg Humphreys, Denys, DO, MPH 10/07/2018 M48.062 Spinal stenosis, lumbar region with Humphreys, Denys, DO, MPH neurogenic claudication 10/07/2018 M25.552 Pain in left hip Denys Humphreys DO MPH 10/07/2018 I34.0 Nonrheumatic mitral (valve) insufficiency Denys Humphreys DO MPH 10/07/2018 Z79.891 [employer]term[employer] continuous churn (current) use of opiate analgesic Denys Humphreys DO, MPH 10/07/2018 Z13.31 Encounter for screening for depression Denys Humphreys DO MPH 10/07/2018 Z71.3 Dietary counseling and surveillance Denys Humphreys DO MPH Plan of Treatment Future Appointment(s):04/21/2019 2:45 pm - Densy Humphreys DO MPH at Main Office as Of 06/03/1410 - Denys Humphreys DO, MPHG89.29 Other chronic [...] physical findings. Continue current medical pain management.Z79.891 [employer] continuous churn (current) use of opiate analgesicNew Labs:Urine Drug Screen, Ordered: 03/23/19Comments:Urine drug screen sample taken today to monitor [...] while maintaining satisfactory side effect profile andminimizing watermaster end-organ damage. Importance of regular nutrition throughout the day discussed.Activity as toleratedContinue with PCP Functional Status Description No Information Available Mental Status Description No Information Available Referrals Description No Information Available
[2019-05-06 14:00] VITALS: BP 135/78
--- NOTE | 2019-05-06 14:18 | UC ---
Throat Pain/Nasal Evan HPI - HPI Summary HPI Summary: patient get a sinus infection every year----she has had this sinus pain upper teeth pain nasal and facial pressure for 2 days---she is also having bloody nose from time to time - History of Current Complaint Chief Complaint: UCRespiratory Stated Complaint: SINUS ISSUE Time Seen by Provider: 05/06/19 14:03 Hx Obtained From: Patient ?: No Onset/Duration: Sudden Onset, Lasting Days - 2 Pain Intensity: 8 Pain Scale Used: 0-10 Numeric Cough: None Associated Signs & Symptoms: Positive: Sinus Discomfort - Allergies/Home Medications Allergies/Adverse Reactions: Allergies Allergy/AdvReac Type Severity Reaction Status Date / Time amoxicillin AdvReac Nausea And Verified 05/06/19 14:01 Vomiting azithromycin [From Zithromax] AdvReac Nausea And Verified 05/06/19 14:01 Vomiting cephalexin AdvReac Nausea And Verified 05/06/19 14:01 Vomiting ciprofloxacin [From Cipro] AdvReac Nausea And Verified 05/06/19 14:01 Vomiting clavulanic acid AdvReac Nausea And Verified 05/06/19 14:01 Vomiting codeine AdvReac Nausea And Verified 05/06/19 14:01 Vomiting lactose AdvReac Diarrhea Verified 05/06/19 14:01 latanoprost AdvReac Nausea And Verified 05/06/19 14:01 Vomiting levofloxacin [From Levaquin] AdvReac Nausea And Verified 05/06/19 14:01 Vomiting shellfish derived AdvReac Nausea And Verified 05/06/19 14:01 Vomiting sulfamethoxazole AdvReac Nausea And Verified 05/06/19 14:01 Vomiting trimethoprim AdvReac Nausea And Verified 05/06/19 14:01 Vomiting enviromental Allergy Mild itchy eyes Uncoded 05/06/19 14:01 PMH/Surg Hx/FS Hx/Imm Hx Previously Healthy: No Endocrine History: Hypothyroidism Cardiovascular History: Cardiac Disease, Hypertension, Pacemaker/ICD Psychological History: Other Other Psychological History: chronic pain - Surgical History Surgical History: Yes Surgery Procedure, Year, and Place: cardiac surgery done 03/2013, valve replacement. PACEMAKER 2012 [place]. right wrist - Family History Known Family History: Positive: Cardiac Disease, Other - COLON [place]; ALZ; DEMENTIA - Social History Occupation: Retired Lives: Alone Alcohol Use: None Substance Use Type: None Smoking Status (MU): Never Smoked Tobacco - Immunization History Most Recent Influenza Vaccination: 01/2017 Most Recent Tetanus Shot: up to date Most Recent Pneumonia Vaccination: received Review of Systems All Other Systems Reviewed And Are Negative: Yes Constitutional: Positive: Negative Skin: Positive: Negative Eyes: Positive: Negative ENT: Positive: Nasal Discharge, Sinus Congestion, Sinus Pain/Tenderness Respiratory: Positive: Negative Cardiovascular: Positive: Negative Gastrointestinal: Positive: Negative Genitourinary: Positive: Negative Motor: Positive: Negative Neurovascular: Positive: Negative Musculoskeletal: Positive: Negative Neurological: Positive: Negative Psychological: Positive: Negative Is Patient Immunocompromised?: No Physical Exam Triage Information Reviewed: Yes Appearance: No Pain Distress, Well-Nourished, Ill-Appearing - mild Vital Signs: Initial Vital Signs Temp 99.0 F 05/06/19 13:58 Pulse 89 05/06/19 13:58 Resp 18 05/06/19 13:58 BP 135/78 05/06/19 13:58 Pulse Ox 96 05/06/19 13:58 Vital Signs Reviewed: Yes Eye Exam: Normal Eyes: Positive: Conjunctiva Clear ENT Exam: Normal ENT: Positive: Normal ENT inspection, Hearing grossly normal, Pharynx normal, Nasal congestion, Nasal drainage, TMs normal, Sinus tenderness, Uvula midline. Negative: Tonsillar swelling, Tonsillar exudate, Trismus, Muffled voice, Hoarse voice, Dental tenderness Dental Exam: Normal Neck exam: Normal Neck: Positive: Supple, Nontender, No Lymphadenopathy Respiratory Exam: Normal Respiratory: Positive: Chest non-tender, Lungs clear, Normal breath sounds, No respiratory distress, No accessory muscle use Cardiovascular Exam: Normal Cardiovascular: Positive: RRR, No Murmur, Pulses Normal, Brisk Capillary Refill Musculoskeletal Exam: Normal Musculoskeletal: Positive: Strength Intact, ROM Intact, No Edema Neurological Exam: Normal Neurological: Positive: Alert, Muscle Tone Normal Psychological Exam: Normal Skin Exam: Normal Throat Pain/Nasal Course/Dx - Course Course Of Treatment: patient and I discussed the options of waiting a few days or starting antibiotics now---patient states when she waits she just gets to sick---patient will use a cool mist humidifier, small amount of feliciano in side of nose to keep septum most and fee from cracked and bleeding skin..will start doxycycline as she has tolerated that well in the past for sinus infection---patient will follow with pcp - Differential Dx/Diagnosis Provider Diagnosis: Acute sinusitis, Anterior epistaxis Discharge ED - Sign-Out/Discharge Documenting (check all that apply): Patient Departure All imaging exams completed and their final reports reviewed: No Studies - Discharge Plan Condition: Stable Disposition: HOME Prescriptions: DOXYcycline CAP(*) [DOXYcycline 100MG CAP(*)] 100 mg PO BID #20 cap Patient Education Materials: Sinusitis (ED), Nosebleed (ED) Referrals: Maria Ines Lopez MD [Primary Care Provider] - If Needed - Billing Disposition and Condition Condition: STABLE Disposition: Home - Attestation Statements Provider Attestation: I was available for consult. This patient was seen by the KAILEY. The patient was not presented to, seen by, or examined by me. -Vivian
== END 2019-05-06 14:30 | disposition home or self-care (01) ==
LOC: UCEAST 13:45
DX: J01.90 Acute sinusitis, unspecified (principal); R04.0 Epistaxis; I10 Essential (primary) hypertension; Z91.09 Other allergy status, other than to drugs and biological substances; Z88.2 Allergy status to sulfonamides; Z91.013 Allergy to seafood; Z88.1 Allergy status to other antibiotic agents; Z95.0 Presence of cardiac pacemaker; Z91.011 Allergy to milk products; Z88.5 Allergy status to narcotic agent; Z88.0 Allergy status to penicillin; Z88.8 Allergy status to other drugs, medicaments and biological substances
CPT/HCPCS: 99212; G0463